=== PATIENT | female | born 1945 | race Caucasian/White ===

== ENCOUNTER 2020-06-17 12:42 | Outpatient (REF) | payer MEDICARE, SELFPAY ==
--- NOTE | 2020-06-17 | MM_ITS ---
EXAMINATION: MM SCREENING DIGITAL BREAST TOMOSYNTHESIS, BILATERAL CLINICAL INFORMATION: Screening. Asymptomatic. The lifetime risk of breast cancer based on the Tyrer-Cuzick Model is 3%. COMPARISON: Mammography: 02/08/2019, 01/15/2018 TECHNIQUE: Digital breast tomosynthesis is performed in both the craniocaudal and mediolateral oblique views along with computer-aided detection (CAD). Synthesized 2D images are generated from the tomosynthesis. FINDINGS: There are scattered areas of fibroglandular density (ACR BI-RADS breast composition Category b). There are no significant masses, abnormal calcifications, or other abnormalities. The axilla and skin contours are unremarkable. IMPRESSION: No mammographic evidence of malignancy. ASSESSMENT: BI-RADS 1: Negative RECOMMENDATION: Routine annual mammography screening. This patient's information was entered into a reminder system with a target due date for their next mammogram.
== END 2020-06-17 12:43 | disposition home or self-care (01) ==
LOC: HO.MAMMO 12:42
PROVIDERS: PCP Internal Medicine; Visit Provider Internal Medicine
DX: Z12.31 Encounter for screening mammogram for malignant neoplasm of breast (principal)
CPT/HCPCS: 77063; 77067

== ENCOUNTER 2020-09-14 14:58 | Outpatient (REF) | payer MEDICARE, SELFPAY | END 2020-09-14 14:59 | disposition home or self-care (01) | LOC: HO.LAB 14:58 | PROVIDERS: PCP Internal Medicine; Visit Provider Internal Medicine | DX: Z20.822 Contact with and (suspected) exposure to COVID-19 (principal) | CPT/HCPCS: 36415; C9803; U0003 ==

== ENCOUNTER 2021-01-05 08:30 | Outpatient (REF) | payer MEDICARE, SELFPAY ==
[2021-01-05 09:10] LABS: MANUAL DIFF FLAG NO
[2021-01-05 09:20] LABS: Basophils Percent Auto 0.5 % (0-2); Eosinophils Absolute Auto 0.3 X10*3/uL (0.0-0.4); Eosinophils Percent Auto 4.2 % (0-4); Hematocrit 43.3 % (37-47); Hemoglobin 13.7 g/dl (12.0-16.0); Imm Gran Abs Auto 0.01 X10*3/uL (0.00-0.03); Imm Gran Pct Auto 0.2 % (0.0-0.4); Lymphocytes Absolute Auto 1.3 X10*3/uL (1.2-4.9); Lymphocytes Percent Auto 20.4 % (20-40); Mean Corpuscular HGB Conc 31.6 g/dl (31.0-35.0); Mean Corpuscular Hemoglobin 29.3 pg (27.0-33.0); Mean Corpuscular Volume 92.5 fL (80-98); Mean Platelet Volume 11.5 fL (9.4-12.3); Monocytes Absolute Auto 0.4 X10*3/uL (0.1-1.2); Monocytes Percent Auto 6.3 % (2-11); Neutrophils Absolute Auto 4.4 X10*3/uL (2.0-8.3); Neutrophils Percent Auto 68.4 % (45-73); Platelet Count 238 X10*3/uL (160-400); Red Blood Count 4.68 X10*6/uL (4.20-5.50); Red Cell Distribution Width 11.7 % (11.0-16.0); White Blood Count 6.4 X10*3/uL (4.8-10.8)
[2021-01-05 09:52] LABS: Alanine Aminotransferase 14 U/L (0-31); Albumin Level 4.4 g/dL (3.5-5.0); Alkaline Phosphatase 82 U/L (39-117); Anion Gap 12 (12-20); Aspartate Amino Transferase 17 U/L (5-31); Bilirubin Total 0.8 mg/dL (0.0-1.0); Blood Urea Nitrogen 8 mg/dL (9-16); Calcium 9.5 mg/dL (8.4-10.2); Carbon Dioxide 27 mmol/L (22-29); Chloride 108 mmol/L (96-108); Cholesterol 210 mg/dL; Estimated Glomerular Filt Rate > 60; Glucose Random 105 mg/dL (60-115); HDL Cholesterol 70 mg/dL; LDL Cholesterol Calculated 124 mg/dl; Sodium 143 mmol/L (135-145); Total Protein 7.1 g/dL (6.5-8.0); Triglycerides 80 mg/dL
[2021-01-05 10:14] LABS: Free T4 (Free Thyroxine) 0.92 ng/dL (0.71-1.85); Thyroid Stimulating Hormone 1.08 uIU/mL (0.32-4.0); Vitamin D 25-OH Total 13.7 ng/mL (>30)
[2021-01-05 11:19] LABS: Folate 16.6 ng/mL (> or = 4.0); Vitamin B12 577 pg/mL (200-900)
== END 2021-01-05 08:31 | disposition home or self-care (01) ==
LOC: HO.LAB 08:30
PROVIDERS: PCP Internal Medicine; Visit Provider Internal Medicine
DX: E78.00 Pure hypercholesterolemia, unspecified (principal); K21.9 Gastro-esophageal reflux disease without esophagitis; M81.0 Age-related osteoporosis without current pathological fracture
CPT/HCPCS: 36415; 80053; 80061; 82306; 82607; 82746; 84439; 84443; 85025

== ENCOUNTER 2021-09-07 12:27 | Outpatient (REF) | payer MEDICARE, SELFPAY ==
--- NOTE | ~2021-09-07 | MM_ITS ---
EXAMINATION: BONE DENSITOMETRY CLINICAL INDICATION: Age-related osteoporosis without current pathological fracture. COMPARISON: Previous BD dated 08/12/2019 and baseline BD dated 06/26/2008. TECHNIQUE: Using a [employer] DXA System (software version: 13.1) manufactured by [employer], dual-energy x-ray absorptiometry was performed of the lumbar spine and left hip. The images are of good technical quality. Summary results are attached. FINDINGS: AP SPINE L2-L3 (excluding L1 and L4): The data of L1-L4 has been changed to exclude the L1 and L4 vertebral bodies, because degenerative changes at these levels may cause overestimation of lumbar spine density. Current: BMD 0.785 g/cm2, Z-score -2.1, T-score -3.5, osteoporosis, 6.9% increase from previous, 21.5% decrease from baseline (<5% change is not significant). Prior: BMD 0.734 g/cm2. Baseline: BMD 1.000 g/cm2. LEFT FEMUR, NECK: Current: BMD 0.691 g/cm2, Z-score -0.9, T-score -2.5, osteoporosis. Prior: BMD 0.762 g/cm2. Baseline: BMD 0.918 g/cm2. LEFT FEMUR, TOTAL: Current: BMD 0.789 g/cm2, Z-score -0.3, T-score -1.7, osteopenia, 4.5% decrease from previous, 19.1% decrease from baseline (<5% change is not significant). Prior: BMD 0.826 g/cm2. Baseline: BMD 0.975 g/cm2. IDENTIFIED RISK FACTORS: Osteoporosis, menopause. HISTORY OF FRACTURE: None listed. MEDICATIONS: Calcium supplements or multivitamin, vitamin D. MM/XR DEXA axial skeleton IMPRESSION: 1. DIAGNOSIS: Osteoporosis based on the lowest T-score value of -3.5 in the lumbar spine applying World Health Organization criteria. 2. 10-YEAR FRACTURE RISK PREDICTION, FRAX: According to the guidelines, FRAX calculation should only be performed on patients in the osteopenia bone density category. 3. Recommendations: NOF guidelines recommend consideration for treatment in postmenopausal women and men age 50 and older presenting with the following: -A hip or vertebral (clinical or morphometric) fracture. -T-score less than or equal to -2.5 at the femoral neck or spine after appropriate evaluation to exclude secondary causes. -Low bone mass at the hip or spine and a 10-year fracture probability by FRAX of greater than or equal to 3% for hip fracture or greater than or equal to 20% for major osteoporotic fracture based on the [place] adapted WHO algorithm. 4. Other Recommendations: All treatment decisions require clinical judgment and consideration of individual patient factors, including patient preferences, comorbidities, previous drug use, risk factors not captured in the FRAX model (e.g. frailty, falls, vitamin D deficiency, increased bone turnover, interval significant decline in bone density) and possible under or overestimation of fracture risk by FRAX. Additional medical evaluation for secondary cause of low bone mineral density may be appropriate. FUTURE SCAN RECOMMENDATION: People with diagnosed cases of osteoporosis or at high risk for fracture should have regular bone mineral density tests. For patients eligible for Medicare, routine testing is allowed once every 2 years. The testing frequency can be increased to one year for patients who have rapidly progressing disease, those who are receiving or discontinuing medical therapy to restore bone mass, or have additional risk factors.
--- NOTE | ~2021-09-07 | MM_ITS ---
EXAMINATION: MM SCREENING DIGITAL BREAST TOMOSYNTHESIS, BILATERAL CLINICAL INFORMATION: Screening. Asymptomatic. The lifetime risk of breast cancer based on the Tyrer-Cuzick Model is 2%. COMPARISON: Mammography: 06/17/2020, 02/18/2019, 01/15/2018 TECHNIQUE: Digital breast tomosynthesis is performed in both the craniocaudal and mediolateral oblique views along with computer-aided detection (CAD). Synthesized 2D images are generated from the tomosynthesis. FINDINGS: There are scattered areas of fibroglandular density (ACR BI-RADS breast composition Category b). There are no significant masses, abnormal calcifications, or other abnormalities. Parenchymal pattern is similar to prior studies. There is no developing density or architectural abnormality. The axilla and skin contours are unremarkable. No significant changes. MM/MM tomosynthesis screening BI IMPRESSION: No mammographic evidence of malignancy. ASSESSMENT: BI-RADS 1: Negative RECOMMENDATION: Routine annual mammography screening. This patient's information was entered into a reminder system with a target due date for their next mammogram.
== END 2021-09-07 12:28 | disposition home or self-care (01) ==
LOC: HO.MAMMO 12:27
PROVIDERS: Visit Provider Internal Medicine
DX: Z12.31 Encounter for screening mammogram for malignant neoplasm of breast (principal); Z13.820 Encounter for screening for osteoporosis; M81.0 Age-related osteoporosis without current pathological fracture; Z78.0 Asymptomatic menopausal state; Z79.899 Other long term (current) drug therapy
CPT/HCPCS: 77063; 77067; 77080

== ENCOUNTER → 2021-09-30 09:33 | Outpatient (BNVA) | payer MEDICARE, SELFPAY | PROVIDERS: PCP Internal Medicine; Visit Provider Hospitalist | DX: J45.40 Moderate persistent asthma, uncomplicated (principal); T78.40XA Allergy, unspecified, initial encounter; X58.XXXA Exposure to other specified factors, initial encounter; Z79.899 Other long term (current) drug therapy | CPT/HCPCS: 99202 ==

== ENCOUNTER 2021-10-06 08:54 | Outpatient (REF) | payer MEDICARE, SELFPAY ==
[2021-10-06 11:20] LABS: MANUAL DIFF FLAG NO
[2021-10-06 11:27] LABS: Basophils Percent Auto 0.4 % (0-2); Eosinophils Absolute Auto 0.3 X10*3/uL (0.0-0.4); Eosinophils Percent Auto 5.1 % (0-4); Hematocrit 41.1 % (37.0-47.0); Imm Gran Abs Auto 0.01 X10*3/uL (0.00-0.03); Imm Gran Pct Auto 0.2 % (0.0-0.4); Lymphocytes Absolute Auto 1.4 X10*3/uL (1.2-4.9); Mean Corpuscular HGB Conc 31.6 g/dl (31.0-35.0); Mean Corpuscular Hemoglobin 29.7 pg (27.0-33.0); Mean Corpuscular Volume 94.1 fL (80.0-98.0); Mean Platelet Volume 12.2 fL (9.4-12.3); Monocytes Absolute Auto 0.4 X10*3/uL (0.1-1.2); Monocytes Percent Auto 8.5 % (2-11); Neutrophils Absolute Auto 2.9 x10*3/uL (2.0-8.3); Neutrophils Percent Auto 57.8 % (45-73); Platelet Count 207 X10*3/uL (160-400); Red Blood Count 4.37 X10*6/uL (4.20-5.50); Red Cell Distribution Width 11.7 % (11.0-16.0); White Blood Count 5.1 X10*3/uL (4.8-10.8)
[2021-10-06 12:04] LABS: Erythrocyte Sedimentation Rate 7 MM/HR (0-20)
== END 2021-10-06 08:55 | disposition home or self-care (01) ==
LOC: HO.HMGCLDS 08:54
PROVIDERS: Hospitalist; Visit Provider Internal Medicine
DX: J45.20 Mild intermittent asthma, uncomplicated (principal); T78.40XA Allergy, unspecified, initial encounter
CPT/HCPCS: 36415; 85025; 85652

== ENCOUNTER 2021-11-28 19:18 | Emergency (ER) | payer OTHER, SELFPAY ==
--- NOTE | ~2021-11-28 | XR_ITS ---
EXAMINATION: XR KNEE, LEFT CLINICAL INFORMATION: Knee pain COMPARISON: 02/25/2010 TECHNIQUE: Four views of the left knee. FINDINGS: Large suprapatellar knee joint effusion is seen. Tricompartmental degenerative changes are noted with osteophyte formation and subchondral sclerosis more so in the patellofemoral compartment. Chondrocalcinosis seen in the medial lateral compartments. I do not appreciate any acute fracture or dislocation. XR/XR knee LT 4V IMPRESSION: Tricompartmental degenerative changes with large suprapatellar knee joint effusion.
[2021-11-28 19:26] VITALS: BP 155/83; PULSE 84; RESP 18; TEMP 37; O2SAT 96
[2021-11-28 21:02] VITALS: BP 170/108; PULSE 107; RESP 17; TEMP 37.2; O2SAT 96; BMI 29.6
--- NOTE | 2021-11-28 22:12 | ED.LOWEXIN ---
HPI - Extremity Injury (Lower) General Chief Complaint: Extremity Injury, Lower <YADI Coy - Last Filed: 11/29/21 00:31> Stated Complaint: left knee pain <YADI Coy Last Filed: 11/29/21 00:31> Time Seen by Provider: 11/28/21 20:21 <YADI Coy Last Filed: 11/29/21 00:31> Source: patient <YADI Coy Last Filed: 11/29/21 00:31> Mode of arrival: ambulatory <AYDI Coy Last Filed: 11/29/21 00:31> Limitations: no limitations <YADI Coy Last Filed: 11/29/21 00:31> History of Present Illness HPI Narrative: 76 yo female with history of osteoarthritis, osteoporosis, asthma, anxiety, HLD, GERD who presents to the ER with worsening left knee pain for the last 6 weeks. Daughter reports she started limping a bit 6 weeks ago and it has only worsening since. Yesterday patient went shopping with a family member, did a lot of walking with singifiannt worsening of the pain and swelling. When she went to stand up earlier she heard a pop with even more pain and swelling. She is now unable to put pressure on the left leg and walk. She denies any fall or trauma. She is not on anticoagulation. She has a history of knee effusion in the right that has require drainage in the past. <YADI Coy - Last Filed: 11/29/21 00:31> MD complaint: knee injury <YADI Coy Last Filed: 11/29/21 00:31> Onset (ago): week(s) <YADI Coy Last Filed: 11/29/21 00:31> Injury: Left: knee <YADI Coy Last Filed: 11/29/21 00:31> Place: home and street/outdoors <YADI Coy Last Filed: 11/29/21 00:31> Severity: severe <YADI Coy Last Filed: 11/29/21 00:31> Severity scale (1-10): 10 <YADI Coy Last Filed: 11/29/21 00:31> Relieving factors: immobilization and rest <YADI Coy - Last Filed: 11/29/21 00:31> Exacerbating factors: weight bearing, movement and palpation <YADI Coy - Last Filed: 11/29/21 00:31> Context: walking <YADI Coy - Last Filed: 11/29/21 00:31> Associated symptoms: snap/pop sensation, swelling and unable to bear weight <YADI Coy - Last Filed: 11/29/21 00:31> Other symptoms: none <YADI Coy - Last Filed: 11/29/21 00:31> Related Data Home Medications: Home Medications Medication Instructions Recorded Confirmed cyanocobalamin (vitamin B-12) 1,000 mcg PO DAILY 10/07/20 10/10/21 1,000 mcg tablet fluticasone propionate 50 2 spray INTRANASAL DAILY 10/07/20 10/10/21 mcg/actuation nasal spray,suspension ibuprofen 800 mg tablet 800 mg PO Q8H 10/07/20 10/10/21 Previous Rx's Medication Instructions Recorded omeprazole 20 mg capsule,delayed 20 mg PO DAILY #30 cap 08/23/20 release diclofenac sodium 1 % topical gel 2 g TOPICAL QID #100 g 01/05/21 cholecalciferol (vitamin D3) 25 25 mcg PO DAILY 90 Days #90 cap 01/11/21 mcg (1,000 unit) capsule risedronate 35 mg tablet (Actonel) 35 mg PO QWEEK #12 tab 03/21/21 Baclidoxe/RUPERTO 2%, 5% 6% Cream See Rx Instructions .ROUTE 07/18/21 .COMPLEX #240 g simvastatin 40 mg tablet 40 mg PO QPM #90 tab 08/07/21 skinny light Pads size 3 #120 ea 09/06/21 wipes. #1 ea 09/06/21 albuterol sulfate 2.5 mg (3 mL) INHALATION Q4-6H PRN 09/30/21 #180 ml albuterol sulfate 90 mcg/actuation 2 inh INHALATION Q6H PRN 30 Days 09/30/21 aerosol inhaler #18 g cetirizine 10 mg tablet (Zyrtec) 10 mg PO DAILY 30 Days #30 tab 09/30/21 fluticasone 250 mcg-salmeterol 50 1 ea INHALATION BID #60 cap 09/30/21 mcg/dose blistr powdr for inhalation (David Cooper) montelukast 10 mg tablet 10 mg PO DAILY 90 Days #90 tab 09/30/21 <YADI Coy - Last Filed: 11/29/21 00:31> Allergies/Adverse Reactions: Allergies Allergy/AdvReac Type Severity Reaction Status Date / Time alendronate sodium Allergy Unknown Upset Verified 10/10/21 09:41 stomach SEASONAL ALLERGIES Allergy Unknown SNEEZING Uncoded 10/10/21 09:41 <YADI Coy - Last Filed: 11/29/21 00:31> Review of Systems Review of Systems: Constitutional: No Fever, No Chills ENT/Mouth: No sore throat, No Rhinorrhea, No Swallowing Difficulty Cardiovascular: No Chest Pain, No SOB, No Orthopnea, No Edema Respiratory: No Cough, No Sputum, No Wheezing, No dyspnea Gastrointestinal: No Nausea, No Vomiting, No Diarrhea, No abdominal Pain Genitourinary: No Dysuria, No Urinary Frequency, No Hematuria Musculoskeletal: + joint pain, No Myalgias Skin: No Skin Lesions, No rash Neuro: No Weakness, No Numbness, No Dizziness, No Headache Psych: No Anxiety/Panic, No Depression Heme/Lymph: No Bruising, No Lymphadenopathy Endocrine: No Polyuria, No Polydipsia <YADI Coy - Last Filed: 11/29/21 00:31> [facility]LY [facility] Past Medical History Medical History: Medical History (Updated 11/28/21 @ 23:11 by YADI Coy) Allergic rhinitis Allergy Anxiety Asthma GERD (gastroesophageal reflux disease) Hypercholesterolemia Insomnia Osteoporosis Vitamin D deficiency <YADI Coy - Last Filed: 11/29/21 00:31> Surgical History: Surgical History History of shoulder surgery History of tubal ligation <YADI Coy - Last Filed: 11/29/21 00:31> Family History Family History: Family History Father Cancer Mother Diabetes Myocardial infarction Sister No problems noted. Daughter No problems noted. Son No problems noted. Son No problems noted. Son No problems noted. <YADI Coy - Last Filed: 11/29/21 00:31> Social History Social History: Social History (Updated 10/10/21 @ 10:23 by Manuel Oviedo MD) Housing: House Alcohol intake: current Patient Tobacco Use Status: Never used Tobacco Tobacco use type: Cigarette e-Cigarette/Vaping Use: Never Used Second Hand Smoke Exposure: No Advance Directives: Yes Advance Directives on File: Yes Advance Directives Date on File: 10/11/21 Current occupational status: retired <YADI Coy - Last Filed: 11/29/21 00:31> Physical Exam Vital Signs: Vital Signs: Last Vital Signs Temp 98.2 F 11/29/21 05:13 Pulse 88 11/29/21 05:13 Resp 14 11/29/21 05:13 BP 154/87 H 11/29/21 05:13 Pulse Ox 98 11/29/21 05:13 BMI result Body Mass Index 29.6 <YADI Coy - Last Filed: 11/29/21 00:31> Appearance: Alert. Oriented X3. No acute distress. HEENT: normal inspection CVS: Normal heart rate and rhythm. Pulses normal. Respiratory: No respiratory distress. Skin: Skin warm and dry. Normal skin color. Normal skin turgor. No rashes. Extremities: left knee with large amount of swelling superiorly. limited ROM due to swelling and pain. warm but not red. tenderness throughout the entire knee joint. palpable effusion superiorly. Neuro: Oriented X 3. gait not tested due to pain <YADI Coy - Last Filed: 11/29/21 00:31> Course Course Course Narrative: 76 y/o female with history of osteoarthritis, hx right knee effusion requiring drainage in the past presents to the ER with 6 weeks of worsening atraumtic left knee pain, acutely worse in last 48 hours after shopping and then hearing a pop with severe pain when standing. Significant swelling on exam but no evidence of infection. Doubt gout. XR is showing tricompartmental degenerative changes with large suprapatellar knee effusion. Discussed options of management with patient and daughter at the bedside. They have an Orthopedist in [place] but do not know the name. Given her severe pain they would like the effusion drained in the ER now. Risks and benefits discussed, verbal consent obtained. <YADI Coy - Last Filed: 11/29/21 00:31> Reevaluation(s) Reevaluation #1: Left knee was drained of 100cc of dark red bloody fluid. Knee effusion much softer and smaller but not resolved completely. Immediately following the procedure compression SAMUEL wraps, elevated and ice applied. PO meds ordered for pain. Pt and daughter to discuss PT eval and placement vs d/c home with family support. <YADI Coy - Last Filed: 11/29/21 00:31> Reevaluation #2: Given patient's pain and continued limited ROM, inability to ambulate, will plan to get PT consult tomorrow and case management consult for placement to short term rehab. Will check basic labs including coags given her hemarthrosis. Synovial fluid sent for cell count and culture. Physician observation started at 12:20am. Patient placed in physician observation because patient is awaiting PT evaluation for the possible need of placement to short term rehab. At the time observation was started patient's vital signs were stable. Patient is alert and oriented. Neuro exam is non-focal. CV: RRR and lungs are clear. ATC tylenol ordered as well as oxycodone Q6h Will continue to monitor. <YADI Coy - Last Filed: 11/29/21 00:31> MDM - Extremity Injury (Lower) Lab Data Result diagrams: : 11/29/21 01:48 11/29/21 01:48 <YADI Coy - Last Filed: 11/29/21 00:31> Labs: Lab Results 11/28/21 11/29/21 11/29/21 Range/Units 23:50 01:48 01:48 WBC 11.5 H (4.8-10.8) X10*3/uL RBC 4.37 (4.20-5.50) X10*6/uL Hgb 12.9 (12.0-16.0) g/dl Hct 38.9 (37.0-47.0) % MCV 89.0 (80.0-98.0) fL MCH 29.5 (27.0-33.0) pg MCHC 33.2 (31.0-35.0) g/dl RDW 11.4 (11.0-16.0) % Plt Count 207 (160-400) X10*3/uL MPV 11.5 (9.4-12.3) fL Immature Gran % (Auto) 0.2 (0.0-0.4) % Neut % (Auto) 86.6 H (45-73) % Lymph % (Auto) 5.3 L (20-40) % [place] % (Auto) 7.8 (2-11) % Eos % (Auto) 0.0 (0-4) % Baso % (Auto) 0.1 (0-2) % Lymph # (Auto) 0.6 L (1.2-4.9) X10*3/uL [place] # (Auto) 0.9 (0.1-1.2) X10*3/uL Eos # (Auto) 0.0 (0.0-0.4) X10*3/uL Baso # (Auto) 0.0 (0.0-0.2) X10*3/uL Abs Immat Gran (auto) 0.02 (0.00-0.03) X10*3/uL Absolute Neuts (auto) 9.9 H (2.0-8.3) x10*3/uL Absolute Nucleated RBC 0.000 (0.0-0.012) X10*3/uL Nucleated RBC % (auto) 0.0 (0.0-0.2) /100WBC PT 12.0 (9.9-13.0) SEC INR 1.1 (0.9-1.1) APTT 40.2 H (24.1-38.0) SEC Sodium (135-145) mmol/L Potassium (3.3-5.1) mmol/L Chloride (96-108) mmol/L Carbon Dioxide (22-29) mmol/L Anion Gap (12-20) BUN (9-16) mg/dL Creatinine (0.5-1.4) mg/dL Estim Creat Clear Calc Estimated GFR Random Glucose (60-115) mg/dL Calcium (8.4-10.2) mg/dL Synovial Source left knee Synovial WBC 23.445 X10*3/uL Synovial RBC 0.324 X10*6/uL Synovial Neutrophils 96 % Synovial Lymphocytes 1 % Synovial Monocytes 1 % Synovial Eosinophils 2 % 11/29/21 Range/Units 01:48 WBC (4.8-10.8) X10*3/uL RBC (4.20-5.50) X10*6/uL Hgb (12.0-16.0) g/dl Hct (37.0-47.0) % MCV (80.0-98.0) fL MCH (27.0-33.0) pg MCHC (31.0-35.0) g/dl RDW (11.0-16.0) % Plt Count (160-400) X10*3/uL MPV (9.4-12.3) fL Immature Gran % (Auto) (0.0-0.4) % Neut % (Auto) (45-73) % Lymph % (Auto) (20-40) % [place] % (Auto) (2-11) % Eos % (Auto) (0-4) % Baso % (Auto) (0-2) % Lymph # (Auto) (1.2-4.9) X10*3/uL [place] # (Auto) (0.1-1.2) X10*3/uL Eos # (Auto) (0.0-0.4) X10*3/uL Baso # (Auto) (0.0-0.2) X10*3/uL Abs Immat Gran (auto) (0.00-0.03) X10*3/uL Absolute Neuts (auto) (2.0-8.3) x10*3/uL Absolute Nucleated RBC (0.0-0.012) X10*3/uL Nucleated RBC % (auto) (0.0-0.2) /100WBC PT (9.9-13.0) SEC INR (0.9-1.1) APTT (24.1-38.0) SEC Sodium 132 L (135-145) mmol/L Potassium 3.6 (3.3-5.1) mmol/L Chloride 99 (96-108) mmol/L Carbon Dioxide 25 (22-29) mmol/L Anion Gap 12 (12-20) BUN 8 L (9-16) mg/dL Creatinine 0.62 (0.5-1.4) mg/dL Estim Creat Clear Calc 74.7 Estimated GFR > 60 Random Glucose 178 H (60-115) mg/dL Calcium 9.1 (8.4-10.2) mg/dL Synovial Source Synovial WBC X10*3/uL Synovial RBC X10*6/uL Synovial Neutrophils % Synovial Lymphocytes % Synovial Monocytes % Synovial Eosinophils % <YADI Coy - Last Filed: 11/29/21 00:31> Procedures Joint Aspiration/Injection Joint Asp./Inject. 1: Time Out Performed: Yes <YADI Coy - Last Filed: 11/29/21 00:31> Side of body: left <YADI Coy - Last Filed: 11/29/21 00:31> Joint Aspirated: knee <YADI Coy - Last Filed: 11/29/21 00:31> Ultrasound Guidance: No <YADI Coy - Last Filed: 11/29/21 00:31> Skin Prep: Povidone-Iodine1% <YADI Coy - Last Filed: 11/29/21 00:31> Local Anesthetic: lidocaine 1% <YADI Coy - Last Filed: 11/29/21 00:31> Amount of anesthesia used (mL): 15 <YADI Coy - Last Filed: 11/29/21 00:31> Needle Size Used: 18G <YADI Coy - Last Filed: 11/29/21 00:31> Fluid Obtained: bloody <YADI Coy - Last Filed: 11/29/21 00:31> Total fluid obtained (mL): 100 <YADI Coy - Last Filed: 11/29/21 00:31> Patient Tolerated Procedure: well <YADI Coy - Last Filed: 11/29/21 00:31> Complications: pain <YADI Coy Last Filed: 11/29/21 00:31> Discharge Plan Discharge Clinical Impression: Hemarthrosis <YADI Coy - Last Filed: 11/29/21 00:31> Patient Disposition: Still a Patient <YADI Coy - Last Filed: 11/29/21 00:31> Instructions: Hemarthrosis (ED) <YADI Coy - Last Filed: 11/29/21 00:31> Prescriptions: No [facility] omeprazole 20 mg capsule,delayed release(DR/EC) 20 mg PO DAILY Qty: 30 11RF cholecalciferol (vitamin D3) 25 mcg (1,000 unit) capsule 25 mcg PO DAILY 90 Days Qty: 90 3RF risedronate [Actonel] 35 mg tablet 35 mg PO QWEEK Qty: 12 3RF Rx Instructions: administer at least 30 minutes before the first food or drink of the day other than water. simvastatin 40 mg tablet 40 mg PO QPM Qty: 90 3RF (DME) skinny light Pads size 3 See Rx Instructions .Route .MEDSUPPLY Qty: 120 3RF Rx Instructions: As directed (DME) wipes. See Rx Instructions .Route .MEDSUPPLY Qty: 1 3RF Rx Instructions: As directed ibuprofen 800 mg tablet 800 mg PO Q8H 0RF fluticasone propionate 50 mcg/actuation spray,suspension 2 spray intranasal DAILY 0RF Rx Instructions: administer into each nostril cyanocobalamin (vitamin B-12) 1,000 mcg tablet 1,000 mcg PO DAILY 0RF diclofenac sodium 1 % gel 2 g topical QID Qty: 100 11RF Rx Instructions: apply to single elbow, wrist or hand; for hand includes palm/fingers/back of hand Baclidoxe/RUPERTO 2%, 5% 6% Cream See Rx Instructions .ROUTE .COMPLEX Qty: 240 5RF Rx Instructions: apply to area of pain 2 x a day; cetirizine [Zyrtec] 10 mg tablet 10 mg PO DAILY 30 Days Qty: 30 11RF albuterol sulfate 2.5 mg /3 mL (0.083 %) solution for nebulization 2.5 mg inhalation Q4-6H PRN (Reason: shortness of breath or wheezing) Qty: 180 11RF fluticasone propion-salmeterol [Wixela Inhub] 250-50 mcg/dose blister with device 1 ea inhalation BID Qty: 60 12RF montelukast 10 mg tablet 10 mg PO DAILY 90 Days Qty: 90 3RF albuterol sulfate 90 mcg/actuation HFA aerosol inhaler 2 inh inhalation Q6H PRN (Reason: shortness of breath or wheezing) 30 Days Qty: 18 12RF <YADI Coy - Last Filed: 11/29/21 00:31> Referrals: Diego Flores MD [Physician] - 2 days (left knee hemarthrosis) <YADI Coy - Last Filed: 11/29/21 00:31>
[2021-11-28 22:31] VITALS: BP 198/96; PULSE 120; RESP 22; TEMP 36.7; O2SAT 97
[2021-11-28] MEDS: Lidocaine HCl 1 % 20 ML VIAL INFILTRATI (22:39)
[2021-11-28] MEDS: traMADoL HCL 50 MG TABLET PO (23:02)
[2021-11-28] MEDS: oxyCODONE HCl Immed Release 5 MG TABLET PO (23:56)
[2021-11-28 23:58] LABS: Source Synovial Fluid left knee
[2021-11-29 00:13] LABS: MN% 8.7 %; PMN% 91.3 %; RBC Synovial Fluid 0.324 X10*6/uL
[2021-11-29 00:53] LABS: Eosinophils Synovial Fluid 2 %; Lymphocytes Synovial Fluid 1 %; Monocytes Synovial Fluid 1 %
[2021-11-29 00:54] LABS: BF Shift QC OK YES; Man Diluent Bkgrd OK YES; Neutrophils Synovial Fluid 96 %
--- NOTE | 2021-11-29 01:07 | PC.NURSE ---
REPORT AND CARE TRANSFERRED TO TEZ DOBSON.
[2021-11-29] MEDS: Acetaminophen 325 MG TABLET 975 MG PO ×3 (01:22→12:39)
[2021-11-29 01:30] VITALS: BP 176/104; PULSE 105; RESP 16; TEMP 36.4; O2SAT 95
[2021-11-29 01:54] LABS: MANUAL DIFF FLAG NO
[2021-11-29 01:55] LABS: Basophils Percent Auto 0.1 % (0-2); Hematocrit 38.9 % (37.0-47.0); Hemoglobin 12.9 g/dl (12.0-16.0); Imm Gran Abs Auto 0.02 X10*3/uL (0.00-0.03); Imm Gran Pct Auto 0.2 % (0.0-0.4); Lymphocytes Absolute Auto 0.6 X10*3/uL (1.2-4.9); Lymphocytes Percent Auto 5.3 % (20-40); Mean Corpuscular HGB Conc 33.2 g/dl (31.0-35.0); Mean Corpuscular Hemoglobin 29.5 pg (27.0-33.0); Mean Platelet Volume 11.5 fL (9.4-12.3); Monocytes Absolute Auto 0.9 X10*3/uL (0.1-1.2); Monocytes Percent Auto 7.8 % (2-11); Neutrophils Absolute Auto 9.9 x10*3/uL (2.0-8.3); Neutrophils Percent Auto 86.6 % (45-73); Platelet Count 207 X10*3/uL (160-400); Red Blood Count 4.37 X10*6/uL (4.20-5.50); Red Cell Distribution Width 11.4 % (11.0-16.0); White Blood Count 11.5 X10*3/uL (4.8-10.8)
[2021-11-29 02:06] LABS: INTERNATIONAL NORM RATIO 1.1 (0.9-1.1)
[2021-11-29 02:09] LABS: Partial Thromboplastin Time 40.2 SEC (24.1-38.0)
[2021-11-29 02:17] LABS: Anion Gap 12 (12-20); Blood Urea Nitrogen 8 mg/dL (9-16); Calcium 9.1 mg/dL (8.4-10.2); Carbon Dioxide 25 mmol/L (22-29); Chloride 99 mmol/L (96-108); Creatinine Clr Calc Pharmacy 74.7; Estimated Glomerular Filt Rate > 60; Glucose Random 178 mg/dL (60-115); Potassium 3.6 mmol/L (3.3-5.1); Sodium 132 mmol/L (135-145)
[2021-11-29 05:13] VITALS: BP 154/87; PULSE 88; RESP 14; TEMP 36.8; O2SAT 98
[2021-11-29 07:13] VITALS: BP 155/98; PULSE 96; RESP 20; TEMP 37.4; O2SAT 100
[2021-11-29 07:38] LABS: Uric Acid Synovial Fluid 3
[2021-11-29 07:50] VITALS: BP 161/108; PULSE 93; RESP 14; O2SAT 96
--- NOTE | 2021-11-29 09:01 | PHA.MEDREC ---
Pharmacy Consult ? Medication Reconciliation Pharmacy has completed the medication reconciliation. No remarkable issues, Amanda Cazares, DamasoD
[2021-11-29 09:58] LABS: Influenza A PCR NEGATIVE (Negative); Influenza B PCR NEGATIVE (Negative); Resp Syncy Virus RNA Qual PCR NEGATIVE (Negative); SARS COV2 PCR INHOUSE NEGATIVE (Negative)
[2021-11-29 10:00] VITALS: BP 125/84; PULSE 97; RESP 16; O2SAT 97
[2021-11-29] MEDS: Cyanocobalamin (Vitamin B-12) 1,000 MCG TABLET 1000 MCG PO (10:11)
[2021-11-29] MEDS: Cholecalciferol (Vitamin D3) 25 MCG TABLET PO (10:11)
[2021-11-29] MEDS: Omeprazole 20 MG CAPSULE.DR PO (10:11)
[2021-11-29] MEDS: Montelukast Sodium 10 MG TABLET PO (10:11)
[2021-11-29] MEDS: oxyCODONE HCl Immed Release 5 MG TABLET PO (10:11)
[2021-11-29] MEDS: Loratadine 10 MG TABLET PO (10:11)
--- NOTE | 2021-11-29 10:31 | MHC.CM.ED ---
Received case management consult overnight. Patient came to ER due to left knee pain. Work up essentially negative. Physical therapy eval completed. Short term rehab is recommended. Met with patient and daughter, Layne in regards to discharge planning. Patient lives with her , ambulates independently and had no services prior to coming to the hospital. PCP verified. Layne has a copy of patient's HCP at home and will obtain a copy. Patient received 3 Moderna vaccines. List of facilities contracted with patient's insurance provided. Patient and Layne will make 2 choices and get back to CM. Continue to monitor for d/c needs.
[2021-11-29 12:34] VITALS: BP 133/81; PULSE 93; RESP 16; TEMP 36.9; O2SAT 96
--- NOTE | 2021-11-29 15:17 | MHC.CM.ED ---
Darian Bonilla has obtained insurance auth. Patient can leave at 430pm. [facility] booked. Med nec with chart. Patient, daughter, Annamaria Tillman RN and Dr Hanson aware. Continue to monitor for d/c needs.
--- NOTE | 2021-11-29 16:55 | PC.NURSE ---
call to surendra newby to give nurse to nurse, no answer from floor patient is being admitted to.
--- NOTE | 2021-11-29 18:56 | MHC.CM.ED ---
CM received a call from daughter stating that the family decided to take patient home and they took patient home from [facility] when ambulance arrived. States family will care for her. Pt has [facility] insurance. Daughter will call career services assistant at [facility] to request PT home services. CM explained that referral could be placed with [facility], but daughter states she will call [facility] in the am. Daughter aware that PT recommended [facility], but she states the family was upset with the decision to place at [facility], so they will explore home PT options.
== END 2021-11-29 16:56 | disposition skilled nursing facility (03) ==
PROVIDERS: Emergency Medicine; Physician Assistant; Emergency Provider Emergency Medicine; PCP Internal Medicine
DX: M25.062 Hemarthrosis, left knee (principal); M25.461 Effusion, right knee; M25.562 Pain in left knee; Z20.822 Contact with and (suspected) exposure to COVID-19
CPT/HCPCS: 0241U; 20610; 36415; 73564; 80048; 84560; 85025; 85610; 85730; 89051; 97162; 99284; 99285

== ENCOUNTER 2021-12-23 09:41 | Outpatient (REF) | payer OTHER, SELFPAY ==
--- NOTE | 2021-12-23 13:16 | PFT_ITS ---
Forced vital capacity 72%, FEV1 62%, FEV1/FVC ratio 66, FEF 25/25 42% and MVV is 42%. Post bronchodilator therapy, there is no change. Total lung capacity 85% and residual volume 101%. Diffusion capacity 67. CONCLUSION: Moderately severe obstructive airway disorder. No response to bronchodilator therapy. Clinical correlation recommended. MD AMELIA Farr/BALJINDER / [id number]
== END 2021-12-23 09:42 | disposition home or self-care (01) ==
LOC: HO.RESP 09:41
PROVIDERS: PCP Internal Medicine; Visit Provider Hospitalist
DX: J44.9 Chronic obstructive pulmonary disease, unspecified (principal)
CPT/HCPCS: 94060; 94727; 94729

== ENCOUNTER → 2022-01-26 10:04 | Outpatient (BNVA) | payer OTHER, SELFPAY | PROVIDERS: PCP Internal Medicine; Visit Provider Hospitalist | DX: J45.40 Moderate persistent asthma, uncomplicated (principal); T78.40XD Allergy, unspecified, subsequent encounter | CPT/HCPCS: 99212 ==

== ENCOUNTER 2022-07-07 08:39 | Outpatient (REF) | payer OTHER, SELFPAY ==
[2022-07-07 11:29] LABS: MANUAL DIFF FLAG NO
[2022-07-07 11:44] LABS: Basophils Percent Auto 0.3 % (0-2); Eosinophils Absolute Auto 0.1 X10*3/uL (0.0-0.4); Eosinophils Percent Auto 1.5 % (0-4); Hematocrit 43.2 % (37.0-47.0); Hemoglobin 13.4 g/dl (12.0-16.0); Imm Gran Abs Auto 0.04 X10*3/uL (0.00-0.03); Imm Gran Pct Auto 0.5 % (0.0-0.4); Lymphocytes Absolute Auto 1.9 X10*3/uL (1.2-4.9); Lymphocytes Percent Auto 25.6 % (20-40); Mean Corpuscular Hemoglobin 28.9 pg (27.0-33.0); Mean Corpuscular Volume 93.1 fL (80.0-98.0); Mean Platelet Volume 11.9 fL (9.4-12.3); Monocytes Absolute Auto 0.6 X10*3/uL (0.1-1.2); Monocytes Percent Auto 8.1 % (2-11); Neutrophils Absolute Auto 4.8 x10*3/uL (2.0-8.3); Platelet Count 256 X10*3/uL (160-400); Red Blood Count 4.64 X10*6/uL (4.20-5.50); Red Cell Distribution Width 11.9 % (11.0-16.0); White Blood Count 7.5 X10*3/uL (4.8-10.8)
[2022-07-07 11:56] LABS: Estimated Average Glucose 108 mg/dL; Hemoglobin A1c % 5.4 %
[2022-07-07 12:29] LABS: Free T4 (Free Thyroxine) 1.05 ng/dL (0.71-1.85); Thyroid Stimulating Hormone 1.68 uIU/mL (0.32-4.0); Vitamin D 25-OH Total 14.8 ng/mL (>30)
[2022-07-07 12:43] LABS: Alanine Aminotransferase 16 U/L (0-31); Albumin Level 4.1 g/dL (3.5-5.0); Alkaline Phosphatase 75 U/L (39-117); Anion Gap 15 (12-20); Aspartate Amino Transferase 14 U/L (5-31); Bilirubin Total 0.7 mg/dL (0.0-1.0); Blood Urea Nitrogen 15 mg/dL (9-16); Calcium 9.5 mg/dL (8.4-10.2); Carbon Dioxide 25 mmol/L (22-29); Chloride 106 mmol/L (96-108); Cholesterol 228 mg/dL; Estimated Glomerular Filt Rate > 60; Glucose Random 97 mg/dL (60-115); HDL Cholesterol 77 mg/dL; LDL Cholesterol Calculated 137 mg/dl; Potassium 4.4 mmol/L (3.3-5.1); Sodium 142 mmol/L (135-145); Total Protein 6.6 g/dL (6.5-8.0); Triglycerides 72 mg/dL
[2022-07-07 12:44] LABS: Folate 14.2 ng/mL (> or = 4.0); Vitamin B12 326 pg/mL (200-900)
== END 2022-07-07 08:40 | disposition home or self-care (01) ==
LOC: HO.HMGCLDS 08:39
PROVIDERS: PCP Internal Medicine; Visit Provider Internal Medicine
DX: K21.9 Gastro-esophageal reflux disease without esophagitis (principal); E78.00 Pure hypercholesterolemia, unspecified
CPT/HCPCS: 36415; 80053; 80061; 82306; 82607; 82746; 83036; 84439; 84443; 85025

== ENCOUNTER 2022-09-11 09:52 | Outpatient (REF) | payer OTHER, SELFPAY ==
--- NOTE | ~2022-09-11 | MM_ITS ---
EXAMINATION: MM SCREENING DIGITAL BREAST TOMOSYNTHESIS, BILATERAL CLINICAL INFORMATION: Screening. Asymptomatic. The lifetime risk of breast cancer based on the Tyrer-Cuzick Model is 2.4%. COMPARISON: Mammography: September 07, 2021 and studies dating back to December 01, 2015 TECHNIQUE: Digital breast tomosynthesis is performed in both the craniocaudal and mediolateral oblique views along with computer-aided detection (CAD). Synthesized 2D images are generated from the tomosynthesis. FINDINGS: There are scattered areas of fibroglandular density (ACR BI-RADS breast composition Category b). There are no significant masses, abnormal calcifications, or other abnormalities. MM/MM tomosynthesis screening BI IMPRESSION: No significant changes from prior exam. ASSESSMENT: BI-RADS 1: Negative RECOMMENDATION: Routine annual mammography screening. This patient's information was entered into a reminder system with a target due date for their next mammogram.
== END 2022-09-11 09:53 | disposition home or self-care (01) ==
LOC: HO.MAMMO 09:52
PROVIDERS: PCP Internal Medicine; Visit Provider Internal Medicine
DX: Z12.31 Encounter for screening mammogram for malignant neoplasm of breast (principal)
CPT/HCPCS: 77063; 77067

== ENCOUNTER 2022-09-12 09:48 | Outpatient (REF) | payer OTHER, SELFPAY ==
--- NOTE | ~2022-09-12 | XR_ITS ---
EXAMINATION: XR CHEST CLINICAL INFORMATION: Moderate asthma COMPARISON: X-ray 05/08/2013 TECHNIQUE: 2 views of the chest were obtained. FINDINGS: Mild cardiomegaly. Tortuous aorta. Lungs are clear. No pleural effusion, pulmonary edema. No pneumothorax. Multilevel dorsal spine degeneration. XR/XR chest 2V IMPRESSION: No acute pulmonary disease. Stable mild cardiomegaly and tortuous aorta.
== END 2022-09-12 09:49 | disposition home or self-care (01) ==
LOC: HO.XRAY 09:48
PROVIDERS: PCP Internal Medicine; Visit Provider Hospitalist
DX: Z23 Encounter for immunization (principal); J45.40 Moderate persistent asthma, uncomplicated; T78.40XA Allergy, unspecified, initial encounter
CPT/HCPCS: 71046; 90471; 90677; 99212

== ENCOUNTER 2023-05-15 09:55 | Outpatient (AMB) | payer MEDICARE, SELFPAY ==
--- NOTE | 2023-05-15 10:05 | MHC.OFFVIS ---
Intake Vital Signs 05/15/23 10:06 Height 5 ft 2 in Weight 173 lb 15.115 oz BMI 31.8 Pulse 78 Pulse Source Pulse Oximeter Pulse Oximetry (%) 96 Oxygen Delivery Method Room Air Intake Visit Reasons: Asthma Sweatband Shaper Required: No Allergies alendronate sodium Allergy (Unknown, Verified 05/15/23 10:08) Upset stomach SEASONAL ALLERGIES Allergy (Unknown, Uncoded 05/15/23 10:08) SNEEZING HPI HPI Comments History of Present Illness Details The patient is a 77-year-old woman with a known history of asthma previously followed at [facility] by pulmonology. Subsequently her purchasing buyer left. Currently she has been having some increasing dyspnea symptoms. She also has chest tightness. She does use her rescue inhaler usually on a daily basis. She does get relief when she uses it. We did review her previous data including a CBC with an elevated eosinophil count suggesting eosinophilic asthma. In addition to that the patient did have a CT scan done back in 2017 at [facility]. It demonstrated some peribronchial thickening suggesting some degree of bronchitis and atelectasis. Apparently she did have a more recent CT scan of the chest done. Will request a copy of that study as well. The patient does complaint of nasal congestion and postnasal drip In addition to her ongoing respiratory symptoms. The patient has not had any recent pulmonary function studies and will go ahead and order blood work including allergy testing as far as her respiratory therapy she will continue on current regimen. 01/26/2022 the patient is here for a pulmonary follow-up visit. The patient has been doing well. She continues with current respiratory therapy. She has not had to use her rescue inhaler that often. She is using her allergy medicine. 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 Seems to be responding well to the Wixela. In meantime she is having issues with her knees. Having significant knee swelling. She did go to the ER because of significant joint effusion. The effusion was drained which was found to have significant arthritis. She is going to start gel shots soon with hopes that it would be beneficial in that knee surgery. I did talk to her about her pulmonary function studies. Although she does have a moderate obstruction her symptoms are stable and she is able to proceed with general anesthesia at this time. Hopefully the gel shots work and she can postpone surgery for now. 09/12/2022 the patient is here for a pulmonary follow-up visit. The patient overall is doing well from a respiratory status. the patient does have intermittent cough. Typically nonproductive in nature. [id number]-th-[id number] severity. Also has episodes of chest tightness and wheezing. Typically less than once a week. She continues use he works selling with good effect. She also has been using her allergy medicine. She has not had any exacerbations. She has not required any prednisone which is reassuring. The patient continues to walk with arthritis. I did review her last pulmonary function studies again demonstrating moderate COPD. In addition to that the patient has not had a chest x-ray recently. Go ahead and have her get an x-ray today. Otherwise patient will continue with current regimen will follow-up in 8 months to a year. 05/15/2023 the patient is here for a pulmonary follow-up visit. The patient overall is doing well. She recently was exposed to the cold ranging she states that she got congested after that. She is feeling a little better now. She continues use the Wixela. She has not required any prednisone which is reassuring. We did review her last chest x-ray demonstrating some degree of increased cardiac size. The patient has not had any cardiac imaging. She is doing well she denies any significant shortness of breath leg swelling. Otherwise she will benefit from an echocardiogram. She also has a torturous aorta on her x-ray. On examination the patient does have some diminished breath sounds with prolonged expiratory phase. I do believe that she will benefit from the addition of a long-acting muscarinic antagonist. Therefore will switch over to Trelegy inhaler. If the patient worsens she can always call it in order to send her additional medicines to the pharmacy. Will follow-up in 6 months. If the patient develops any worsening symptoms prior to this visit she is to call the office. Consider cardiac evaluation specially with increased cardiac size. [facility] Medical History Allergic rhinitis Allergy Anxiety Asthma GERD (gastroesophageal reflux disease) Hypercholesterolemia Insomnia Osteoporosis Vitamin D deficiency Surgical History History of shoulder surgery History of tubal ligation Family History (Updated 02/14/23 @ 14:17 by SHILO Escobedo) Father Cancer Mother Diabetes Myocardial infarction Sister No problems noted. Daughter No problems noted. Son No problems noted. Son No problems noted. Son No problems noted. Social History Housing: House Alcohol intake: current Patient Tobacco Use Status: Never used Tobacco e-Cigarette/Vaping Use: Never Used Second Hand Smoke Exposure: No Advance Directives Date on File: 10/11/21 service: No Current occupational status: retired Cognitive needs: No Hearing needs: No Vision needs: Yes Review of Systems Const Denies poor appetite and Denies weakness Eyes Denies no additional complaints ENT Reports Normal hearing present, Denies dizziness, Denies nasal congestion, Denies tinnitus and Denies sore throat Card Denies chest pain, Denies syncope, Denies rapid heart rate, Denies dyspnea and Denies dyspnea on exertion Resp Reports cough, Denies dyspnea, Denies dyspnea on exertion and Denies wheezing GI Denies change in stool character, Reports constipation, Denies diarrhea, Denies nausea and Denies vomiting Denies urinary frequency, Denies difficulty voiding and Denies dysuria Musc Reports arthralgias, Reports joint swelling and Reports limited range of motion Neuro Reports Normal hearing present, Denies dizziness, Denies syncope and Denies weakness Aller/Immun Denies wheezing Physical Exam Vital Signs: Last Vital Signs Pulse 78 05/15/23 10:06 Pulse Ox 96 05/15/23 10:06 Oxygen Delivery Method Room Air 05/15/23 10:06 BMI result Body Mass Index 31.8 Const General: alert Neck Neck: Yes normal visual inspection, Yes full ROM and Yes no lymphadenopathy Chest Chest palpation & inspection: normal inspection of the chest Resp Auscultation: diminished lung sounds Cardio Rate: regular rate Rhythm: regular rhythm Heart sounds: S1 normal heart sound present and S2 normal heart sound present GI Palpation (GI): Soft to palpation and nontender Auscultation: normal bowel sounds Skin General skin exam: rashes and/or lesions noted Neuro Cranial nerves: Yes Normal hearing present Assessment & Plan Assessment & Plan (1) Allergy: Code(s): T78.40XA - Allergy, unspecified, initial encounter Qualifiers: Encounter type: initial encounter Qualified Code(s): T78.40XA - Allergy, unspecified, initial encounter (2) Asthma: Code(s): J45.909 - Unspecified asthma, uncomplicated Qualifiers: Asthma complication type: uncomplicated Asthma persistence: persistent Asthma severity: moderate Qualified Code(s): J45.40 - Moderate persistent asthma, uncomplicated Plan stop Wixela start Trelegy 200 daily continue Singulair continue antihistamine therapy short-acting beta agonist as needed consider cardiac eval with increased cardiac size on CXR follow-up in 6 months Medications: New amcpjneqedq-xzwolunob-mltjowaa 200-62.5-25 mcg (Trelegy Ellipta) 1 inh inhalation DAILY 30 days 60 ea 12RF Coding Level of Care Code Est Pt Level 4 (83649) Diagnoses Allergy, initial encounter T78.40XA Encounter type: initial encounter Moderate persistent asthma without complication J45.40 Asthma complication type: uncomplicated Asthma persistence: persistent Asthma severity: moderate Time Spent (min) 17
[2023-05-15 10:06] VITALS: PULSE 78; O2SAT 96; BMI 31.8
== END 2023-05-15 10:28 | disposition home or self-care (01) ==
PROVIDERS: PCP Nurse Practitioner Family; Visit Provider Hospitalist
DX: T78.40XA Allergy, unspecified, initial encounter (principal); J45.40 Moderate persistent asthma, uncomplicated
CPT/HCPCS: 99214

== ENCOUNTER → 2023-05-15 09:55 | Outpatient (BNVA) | payer MEDICARE, MEDICAID, SELFPAY | PROVIDERS: Visit Provider Hospitalist | DX: J45.40 Moderate persistent asthma, uncomplicated (principal); T78.40XA Allergy, unspecified, initial encounter; Z79.899 Other long term (current) drug therapy | CPT/HCPCS: 99212 ==

== ENCOUNTER 2023-09-17 09:35 | Outpatient (REF) | payer OTHER, SELFPAY | END 2023-09-17 09:36 | disposition home or self-care (01) | LOC: HO.MAMMO 09:35 | PROVIDERS: PCP Internal Medicine; Visit Provider Internal Medicine | DX: Z12.31 Encounter for screening mammogram for malignant neoplasm of breast (principal) | CPT/HCPCS: 77063; 77067 ==

== ENCOUNTER → 2023-09-17 10:15 | Outpatient (BNV) | payer OTHER, SELFPAY | PROVIDERS: PCP Internal Medicine; Visit Provider Radiology Diagnostic Radiology | DX: Z12.31 Encounter for screening mammogram for malignant neoplasm of breast (principal) | CPT/HCPCS: 77063; 77067 ==

== ENCOUNTER 2023-11-14 08:42 | Outpatient (AMB) | payer OTHER, SELFPAY ==
[2023-11-14 08:49] VITALS: BP 140/78; PULSE 77; O2SAT 98; BMI 30.9
--- NOTE | 2023-11-14 08:49 | MHC.PC.OV ---
Vital Signs 11/14/23 08:49 Height 5 ft 2 in Weight 169 lb BMI 30.9 BP 140/78 H Blood Pressure Location Lt brachial Position Sitting Pulse 77 Pulse Source Pulse Oximeter Pulse Oximetry (%) 98 Oxygen Delivery Method Room Air Intake Visit Reasons: nose bleeds Allergies alendronate sodium Allergy (Unknown, Verified 11/14/23 08:50) Upset stomach SEASONAL ALLERGIES Allergy (Unknown, Uncoded 11/14/23 08:50) SNEEZING Tobacco use date assessed: 11/14/23 Fall risk assessment: No Falls in past year Last assessed Fall Risk: 11/14/23 Dental Screening Dental Screen Date: 11/14/23 Did you have a dental visit in the last 12 months?: Yes Did you have a dental problem in the last 6 months where you did not have access to dental care?: No Was dental information given to patient?: Patient has dentist HPI nose bleeds HPI Details 78-year-old obese female with asthma GERD hypercholesterolemia last seen in February 2023. Patient's colonoscopy is due this year mammogram is up-to-date bone density is due. Patient follows up with Pulmonary advised to stop wixela and started on Trelegy continuing with Singulair. Concern about cardiomegaly. recently had cruise and came back yesterday having a cough,no fevers, noHA congested, no sore throat nose bleed [facility] Medical History Allergic rhinitis Allergy Anxiety Asthma GERD (gastroesophageal reflux disease) Hypercholesterolemia Insomnia Osteoporosis Vitamin D deficiency Surgical History History of shoulder surgery History of tubal ligation Family History (Updated 02/14/23 @ 14:17 by SHILO Escobedo) Father Cancer Mother Diabetes Myocardial infarction Sister No problems noted. Daughter No problems noted. Son No problems noted. Son No problems noted. Son No problems noted. Social History Housing: House Alcohol intake: current Patient Tobacco Use Status: Never used Tobacco e-Cigarette/Vaping Use: Never Used Second Hand Smoke Exposure: No Advance Directives Date on File: 10/11/21 service: No Current occupational status: retired Cognitive needs: No Hearing needs: No Vision needs: Yes Questionnaire PHQ-9 Over the last 2 weeks, how often have you been bothered by any of the following problems? 1. Little interest or pleasure in doing things: not at all 2. Feeling down, depressed, or hopeless: not at all 3. Trouble falling or staying asleep, or sleeping too much: not at all 4. Feeling tired or having little energy: not at all 5. Poor appetite or overeating: not at all 6. Feeling bad about yourself - or that you are a failure or have let yourself or your family down: not at all 7. Trouble concentrating on things, such as reading the newspaper or watching television: not at all 8. Moving or speaking so slowly that other people could have noticed. Or the opposite - being so fidgety or restless that you have been moving around a lot more than usual: not at all 9. Thoughts that you would be better off or of hurting yourself in some way: not at all Total score: 0 Source: Developed by Drs. Serafin Jason, Stacy Acosta, Maynor Blackmon and colleagues, with an educational tj from [employer]. Thrive Questionnaire Date Thrive assessed: 11/14/23 I am a: Patient What is your living situation today?: I have a steady place to live Within the past 12 months, did the food you bought not last and you didn't have the money to get more?: Never true Within the past 12 months, did you worry whether your food would run out before you got money to buy more?: Never true Do you have trouble paying for medicines?: No Do you have trouble getting transportation to medical appointments?: No Do you have trouble paying your heating and electricity bill?: No Do you have trouble taking care of your child, family member or friend?: No Do you have trouble with day-to-day activities such as bathing, preparing meals, shopping, managing finances, etc.?: No Are you currently unemployed and looking for a job?: No Are you interested in more education?: No Please select the resources that you would like help with: None Currently or been in a relationship where the following occur: no concerns reported THRIVE Score: 0 AUDIT C Alcohol Use Questionnaire (AUDIT-C) 1. How often do you have a drink containing alcohol?: Monthly or less 2. How many drinks containing alcohol do you have on a typical day when you are drinking?: 1 or 2 3. How often do you have six or more drinks on one occasion?: Never Total Score: 1 RACHNA-7 AMB Questionnaire RACHNA-7 Date RACHNA - 7 assessed: 11/14/23 Feeling nervous, anxious, or on edge: 0 = Not at all Not being able to stop or control worryin = Not at all Worrying too much about different things: 0 = Not at all Trouble relaxin = Not at all Being so restless that it is hard to sit still: 0 = Not at all Becoming easily annoyed or irritable: 0 = Not at all Feeling afraid as if something awful might happen: 0 = Not at all Total RACHNA-7 score (0-4 normal; 5-9 mild; 10-14 moderate; 15-21 severe): 0 Source: Developed by Drs. Serafin Jason, Stacy Acosta, Maynor Blackmon and colleagues, with an educational tj from [employer]. Physical exam (Primary Care) Vital Signs: Last Vital Signs Pulse 77 11/14/23 08:49 BP 140/78 H 11/14/23 08:49 Pulse Ox 98 11/14/23 08:49 Oxygen Delivery Method Room Air 11/14/23 08:49 BMI result Body Mass Index 30.9 Tobacco/Smoking Status: Tobacco use Status Tobacco use date assessed 11/14/23 11/14/23 08:55 Patient Tobacco Use Status Never used Tobacco 11/14/23 08:55 Tobacco use type 02/14/23 14:57 e-Cigarette/Vaping Use Never Used 11/14/23 08:55 PHQ-9: PHQ-9 Score PHQ-9: Total score 0 11/14/23 09:08 Thrive Assessment: Date of Thrive Assessment Date Thrive assessed 11/14/23 11/14/23 08:55 Currently or been in a relationship where the following occur: no concerns reported Const General: alert; No acute distress Eyes Conjunctivae: conjunctivae normal Resp Auscultation: clear to auscultation bilaterally Cardio Rate: regular rate Rhythm: regular rhythm GI Inspection: Yes normal to inspection Extrem General: Yes normal to inspection and No edema Assessment and Plan Assessment & Plan (1) GERD (gastroesophageal reflux disease): Code(s): K21.9 - Gastro-esophageal reflux disease without esophagitis Qualifiers: Esophagitis presence: without esophagitis Qualified Code(s): K21.9 - Gastro-esophageal reflux disease without esophagitis Plan: Avoid the foods that causes that usually spicy foods, tomato products, juices, coffee, soda and foods that your sensitive to. After eating do not lie down, allow 3-4 hours before in lie down. And keep the head of bed above 30 degrees to avoid the acid from going up. On omeprazole (2) Hypercholesterolemia: Code(s): E78.00 - Pure hypercholesterolemia, unspecified Plan: Avoid fried foods, chicken skin, eggs, butter margarine, pastries and meat. Be it pork or beef they have a lot of cholesterol LDL goal of less than 130 and triglyceride of less than 150. Patient on simvastatin 40 mg once a day (3) Osteoporosis: Comment: Bone density done August Code(s): M81.0 - Age-related osteoporosis without current pathological fracture Qualifiers: Osteoporosis type: age-related Presence of current pathological fracture: without current pathological fracture Qualified Code(s): M81.0 - Age-related osteoporosis without current pathological fracture Plan: Patient on Actonel and may need bone density test (4) Asthma: Code(s): J45.909 - Unspecified asthma, uncomplicated Qualifiers: Asthma complication type: uncomplicated Asthma persistence: persistent Asthma severity: moderate Qualified Code(s): J45.40 - Moderate persistent asthma, uncomplicated Plan: Continue with Trelegy as well as albuterol patient on montelukast also (5) Shoulder pain, left: Comment: MRI MRI of the left shoulder done November 2022 showing large full-thickness insertional tear both supraspinatus and infraspinatus tendons fatty infiltration hypertrophic arthritis Code(s): M25.512 - Pain in left shoulder (6) Epistaxis: Code(s): R04.0 - Epistaxis Plan: Saline nasal spray and humidifier is help (7) Cardiomegaly: Code(s): I51.7 - Cardiomegaly (8) Acute bronchitis: Code(s): J20.9 - Acute bronchitis, unspecified Plan: reassurance , increase oral fluids and (9) Blood pressure elevated without history of HTN: Code(s): R03.0 - Elevated blood-pressure reading, without diagnosis of hypertension Plan: monitor the BP at home 2-3 x a week and record. advised to ff up and bring list. Orders: Orders ECG 12 lead EKG Today I51.7 - Cardiomegaly Coding Level of Care Code Est Pt Level 4 (63019) Diagnoses Gastroesophageal reflux disease without esophagitis K21.9 Esophagitis presence: without esophagitis Hypercholesterolemia E78.00 Age-related osteoporosis without current pathological fracture M81.0 Osteoporosis type: age-related Presence of current pathological fracture: without current pathological fracture Moderate persistent asthma without complication J45.40 Asthma complication type: uncomplicated Asthma persistence: persistent Asthma severity: moderate Shoulder pain, left M25.512 Epistaxis R04.0 Cardiomegaly I51.7 Acute bronchitis J20.9 Blood pressure elevated without history of HTN R03.0
== END 2023-11-14 09:26 | disposition home or self-care (01) ==
PROVIDERS: PCP Internal Medicine; Visit Provider Internal Medicine
DX: K21.9 Gastro-esophageal reflux disease without esophagitis (principal); E78.00 Pure hypercholesterolemia, unspecified; M81.0 Age-related osteoporosis without current pathological fracture; J45.40 Moderate persistent asthma, uncomplicated; M25.512 Pain in left shoulder; R04.0 Epistaxis; I51.7 Cardiomegaly; J20.9 Acute bronchitis, unspecified; R03.0 Elevated blood-pressure reading, without diagnosis of hypertension
CPT/HCPCS: 99214

== ENCOUNTER → 2023-11-15 08:10 | Outpatient (REF) | payer OTHER, SELFPAY ==
--- NOTE | 2023-11-15 08:16 | ECG_ITS ---
Test Reason : CARDIOMEGALY Blood Pressure : / mmHG Vent. Rate : 060 BPM Atrial Rate : 060 BPM P-R Int : 120 ms QRS Dur : 090 ms QT Int : 436 ms P-R-T Axes : 049 -35 072 degrees QTc Int : 436 ms Normal sinus rhythm with sinus arrhythmia Left axis deviation Nonspecific ST and T wave abnormality Abnormal ECG When compared with ECG of 12-SEP-2004 11:01, No significant change was found Referred By: Mnauel Oviedo Electronically Signed By:KIM LOVE MD
[2023-11-15 08:35] LABS: MANUAL DIFF FLAG NO
[2023-11-15 08:43] LABS: Basophils Percent Auto 0.2 % (0-2); Eosinophils Absolute Auto 0.1 X10*3/uL (0.0-0.4); Eosinophils Percent Auto 2.3 % (0-4); Hematocrit 40.4 % (37.0-47.0); Imm Gran Abs Auto 0.02 X10*3/uL (0.00-0.03); Imm Gran Pct Auto 0.4 % (0.0-0.4); Lymphocytes Absolute Auto 1.4 X10*3/uL (1.2-4.9); Lymphocytes Percent Auto 26.6 % (20-40); Mean Corpuscular HGB Conc 32.2 g/dl (31.0-35.0); Mean Corpuscular Hemoglobin 29.1 pg (27.0-33.0); Mean Corpuscular Volume 90.4 fL (80.0-98.0); Mean Platelet Volume 11.2 fL (9.4-12.3); Monocytes Absolute Auto 0.4 X10*3/uL (0.1-1.2); Monocytes Percent Auto 7.4 % (2-11); Neutrophils Absolute Auto 3.3 x10*3/uL (2.0-8.3); Neutrophils Percent Auto 63.1 % (45-73); Platelet Count 219 X10*3/uL (160-400); Red Blood Count 4.47 X10*6/uL (4.20-5.50); Red Cell Distribution Width 11.4 % (11.0-16.0); White Blood Count 5.2 X10*3/uL (4.8-10.8)
[2023-11-15 09:22] LABS: Alanine Aminotransferase 16 U/L (0-31); Alkaline Phosphatase 81 U/L (39-117); Anion Gap 11 (12-20); Aspartate Amino Transferase 16 U/L (5-31); Bilirubin Total 0.6 mg/dL (0.0-1.0); Blood Urea Nitrogen 8 mg/dL (9-16); Calcium 9.5 mg/dL (8.4-10.2); Carbon Dioxide 30 mmol/L (22-29); Chloride 106 mmol/L (96-108); Cholesterol 171 mg/dL (<200); Estimated Glomerular Filt Rate > 60; Glucose Random 100 mg/dL (60-115); HDL Cholesterol 55 mg/dL (>40); LDL Cholesterol Calculated 100 mg/dL (<100); Potassium 3.6 mmol/L (3.3-5.1); Sodium 143 mmol/L (135-145); Total Protein 7.1 g/dL (6.5-8.0); Triglycerides 81 mg/dL (<150)
[2023-11-15 09:38] LABS: Free T4 (Free Thyroxine) 0.85 ng/dL (0.71-1.85); Thyroid Stimulating Hormone 1.56 uIU/mL (0.32-4.0); Vitamin D 25-OH Total 18.9 ng/mL (>30)
[2023-11-15 12:12] LABS: Folate 11.9 ng/mL (> or = 4.0); Vitamin B12 346 pg/mL (200-900)
== END ==
LOC: HO.CARD 08:10
PROVIDERS: PCP Internal Medicine; Visit Provider Internal Medicine
DX: I51.7 Cardiomegaly (principal); E78.00 Pure hypercholesterolemia, unspecified
CPT/HCPCS: 36415; 80053; 80061; 82306; 82607; 82746; 84439; 84443; 85025; 93005

== ENCOUNTER → 2023-11-15 08:16 | Outpatient (BNV) | payer OTHER, SELFPAY | PROVIDERS: PCP Internal Medicine; Visit Provider Internal Medicine Cardiovascular Disease | DX: I49.9 Cardiac arrhythmia, unspecified (principal) | CPT/HCPCS: 93010 ==

== ENCOUNTER 2023-12-03 09:46 | Outpatient (AMB) | payer OTHER, SELFPAY ==
[2023-12-03 09:54] VITALS: BP 118/70; PULSE 70; O2SAT 97; BMI 30.8
--- NOTE | 2023-12-03 09:54 | MHC.OFFVIS ---
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 Subsequently her business support professional left. Currently she has been having some increasing dyspnea symptoms. She also has chest tightness. She does use her rescue inhaler usually on a daily basis. She does get relief when she uses it. We did review her previous data including a CBC with an elevated eosinophil count suggesting eosinophilic asthma. In addition to that the patient did have a CT scan done back in [address] [facility]. It demonstrated some peribronchial thickening suggesting some degree of bronchitis and atelectasis. Apparently she did have a more recent CT scan of the chest done. Will request a copy of that study as well. The patient does complaint of nasal congestion and postnasal drip In addition to her ongoing respiratory symptoms. The patient has not had any recent pulmonary function studies and will go ahead and order blood work including allergy testing as far as her respiratory therapy she will continue on current regimen. 01/26/2022 the patient is here for a pulmonary follow-up visit. The patient has been doing well. She continues with current respiratory therapy. She has not had to use her rescue inhaler that often. She is using her allergy medicine. 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 Seems to be responding well to the Wixela. In meantime she is having issues with her knees. Having significant knee swelling. She did go to the ER because of significant joint effusion. The effusion was drained which was found to have significant arthritis. She is going to start gel shots soon with hopes that it would be beneficial in that knee surgery. I did talk to her about her pulmonary function studies. Although she does have a moderate obstruction her symptoms are stable and she is able to proceed with general anesthesia at this time. Hopefully the gel shots work and she can postpone surgery for now. 09/12/2022 the patient is here for a pulmonary follow-up visit. The patient overall is doing well from a respiratory status. the patient does have intermittent cough. Typically nonproductive in nature. Gxmt-je-ffoibqau severity. Also has episodes of chest tightness and wheezing. Typically less than once a week. She continues use he works selling with good effect. She also has been using her allergy medicine. She has not had any exacerbations. She has not required any prednisone which is reassuring. The patient continues to walk with arthritis. I did review her last pulmonary function studies again demonstrating moderate COPD. In addition to that the patient has not had a chest x-ray recently. Go ahead and have her get an x-ray today. Otherwise patient will continue with current regimen will follow-up in 8 months to a year. 05/15/2023 the patient is here for a pulmonary follow-up visit. The patient overall is doing well. She recently was exposed to the cold ranging she states that she got congested after that. She is feeling a little better now. She continues use the Wixela. She has not required any prednisone which is reassuring. We did review her last chest x-ray demonstrating some degree of increased cardiac size. The patient has not had any cardiac imaging. She is doing well she denies any significant shortness of breath leg swelling. Otherwise she will benefit from an echocardiogram. She also has a torturous aorta on her x-ray. On examination the patient does have some diminished breath sounds with prolonged expiratory phase. I do believe that she will benefit from the addition of a long-acting muscarinic antagonist. Therefore will switch over to Trelegy inhaler. If the patient worsens she can always call it in order to send her additional medicines to the pharmacy. Will follow-up in 6 months. If the patient develops any worsening symptoms prior to this visit she is to call the office. Consider cardiac evaluation specially with increased cardiac size. 12/03/2023 the patient is here for a pulmonary follow-up visit. Overall the patient has been doing well. She did have an issue with significant epistaxis just in the beginning of November. She did get blood work done which is reassuring. She also had an EKG done with nonspecific changes. Unchanged from previous. The patient primarily was bleeding from her right nostril. Then after that is stopped and she went on a cruise. While she was in a cruise she did develop some chest tightness and wheezing and cough. She felt like she had a respiratory illness. After taking her medications she did feel better and she was subsequently able to continue the cruise without any difficulties. Now back the patient is doing well. Denies any significant chest tightness or wheezing. We again talked about her x-ray showing increased cardiac size. Will go and request an echocardiogram in view of her abnormal chest x-ray to adjust further address the increased cardiac size. The patient is responding well to Trelegy inhaler. She will continue for now she also uses rescue inhaler. I did look at her nasal passages she does have some slight ulceration to the septum on the right side where she was having some bleeding. Has a little bit of bleeding right now. She is going to use a water-based lubricant to the area to minimize irritation. [facility] Medical History Allergic rhinitis Allergy Anxiety Asthma GERD (gastroesophageal reflux disease) Hypercholesterolemia Insomnia Osteoporosis Vitamin D deficiency Surgical History History of shoulder surgery History of tubal ligation Family History (Updated 02/14/23 @ 14:17 by SHILO Escobedo) Father Cancer Mother Diabetes Myocardial infarction Sister No problems noted. Daughter No problems noted. Son No problems noted. Son No problems noted. Son No problems noted. Social History Housing: House Alcohol intake: current Patient Tobacco Use Status: Never used Tobacco e-Cigarette/Vaping Use: Never Used Second Hand Smoke Exposure: No Advance Directives Date on File: 10/11/21 service: No Current occupational status: retired Cognitive needs: No Hearing needs: No Vision needs: Yes Review of Systems Const Denies poor appetite and Denies weakness Eyes Denies no additional complaints ENT Reports Normal hearing present, Denies dizziness, Reports epistaxis, Denies nasal congestion, Denies tinnitus and Denies sore throat Card Denies chest pain, Denies syncope, Denies rapid heart rate, Denies dyspnea and Denies dyspnea on exertion Resp Reports cough, Denies dyspnea, Denies dyspnea on exertion and Denies wheezing GI Denies change in stool character, Reports constipation, Denies diarrhea, Denies nausea and Denies vomiting Denies urinary frequency, Denies difficulty voiding and Denies dysuria Musc Reports arthralgias, Reports joint swelling and Reports limited range of motion Neuro Reports Normal hearing present, Denies dizziness, Denies syncope and Denies weakness Aller/Immun Denies wheezing Physical Exam Vital Signs: Last Vital Signs Pulse 70 12/03/23 09:54 BP 118/70 12/03/23 09:54 Pulse Ox 97 12/03/23 09:54 Oxygen Delivery Method Room Air 12/03/23 09:54 BMI result Body Mass Index 30.8 Const General: alert HEENT General nose exam: Abnormal nasal septum present other (erythematous with minimal bleeding) Neck Neck: Yes normal visual inspection, Yes full ROM and Yes no lymphadenopathy Chest Chest palpation & inspection: normal inspection of the chest Resp Effort & Inspection: normal respiratory effort Auscultation: clear to auscultation bilaterally Cardio Rate: regular rate Rhythm: regular rhythm Heart sounds: S1 normal heart sound present and S2 normal heart sound present GI Palpation (GI): Soft to palpation and nontender Auscultation: normal bowel sounds Skin General skin exam: rashes and/or lesions noted Neuro Cranial nerves: Yes Normal hearing present Assessment & Plan Assessment & Plan (1) Allergy: Code(s): T78.40XA - Allergy, unspecified, initial encounter Qualifiers: Encounter type: initial encounter Qualified Code(s): T78.40XA - Allergy, unspecified, initial encounter (2) Asthma: Code(s): J45.909 - Unspecified asthma, uncomplicated Qualifiers: Asthma complication type: uncomplicated Asthma persistence: persistent Asthma severity: moderate Qualified Code(s): J45.40 - Moderate persistent asthma, uncomplicated (3) Cardiomegaly: Code(s): I51.7 - Cardiomegaly Plan continue Trelegy 200 daily continue Singulair continue antihistamine therapy short-acting beta agonist as needed ECHO saline gel to nose follow-up in 6 months Orders: Orders CA echo transthoracic complete Today I27.20 - Pulmonary hypertension, unspecified, I51.7 - Cardiomegaly Coding Level of Care Code Est Pt Level 4 (59552) Diagnoses Allergy, initial encounter T78.40XA Encounter type: initial encounter Moderate persistent asthma without complication J45.40 Asthma complication type: uncomplicated Asthma persistence: persistent Asthma severity: moderate Cardiomegaly I51.7 Time Spent (min) 16
== END 2023-12-03 10:13 | disposition home or self-care (01) ==
PROVIDERS: PCP Nurse Practitioner Family; Visit Provider Hospitalist
DX: T78.40XA Allergy, unspecified, initial encounter (principal); J45.40 Moderate persistent asthma, uncomplicated; I51.7 Cardiomegaly
CPT/HCPCS: 99214

== ENCOUNTER → 2023-12-03 09:46 | Outpatient (BNVA) | payer OTHER, SELFPAY | PROVIDERS: PCP Nurse Practitioner Family; Visit Provider Hospitalist | DX: J45.909 Unspecified asthma, uncomplicated (principal); R07.89 Other chest pain; I51.7 Cardiomegaly; I27.20 Pulmonary hypertension, unspecified; T78.40XA Allergy, unspecified, initial encounter; X58.XXXA Exposure to other specified factors, initial encounter; Y93.9 Activity, unspecified; Y92.9 Unspecified place or not applicable; Y99.9 Unspecified external cause status | CPT/HCPCS: 99212 ==

== ENCOUNTER 2024-02-08 12:35 | Outpatient (AMB) | payer OTHER, SELFPAY ==
[2024-02-08 12:39] VITALS: BP 130/72; PULSE 74; O2SAT 96; BMI 30.9
--- NOTE | 2024-02-08 12:39 | A.OFFPC_ITS ---
Vital Signs 02/08/24 12:39 Height 5 ft 2 in Weight 169 lb BMI 30.9 BP 130/72 Blood Pressure Location Lt brachial Position Sitting Pulse 74 Pulse Source Pulse Oximeter Pulse Oximetry (%) 96 Oxygen Delivery Method Room Air Intake Visit Reasons: Cold Symptoms, Hypertension Allergies alendronate sodium Allergy (Unknown, Verified 02/08/24 12:39) Upset stomach SEASONAL ALLERGIES Allergy (Unknown, Uncoded 02/08/24 12:39) SNEEZING Tobacco use date assessed: 11/14/23 Fall risk assessment: No Falls in past year Last assessed Fall Risk: 02/08/24 Dental Screening Dental Screen Date: 11/14/23 HPI Hypertension HPI Details 78-year-old obese female with GERD hyper cholesterolemia osteoporosis asthma last seen in 11/21/2023 noted to have an elevated blood pressure. Patient's colonoscopy is due for this year, mammograms up-to-date bone density is due. Review of the notes was seen by Pulmonary in December for the asthma on Trelegy, Singulair ultrasound of the heart recommended. PAtient decline trelegy , did not feels it helps. rx for wipes and pantiliners [facility] Medical History Allergic rhinitis Allergy Anxiety Asthma GERD (gastroesophageal reflux disease) Hypercholesterolemia Insomnia Osteoporosis Vitamin D deficiency Surgical History History of shoulder surgery History of tubal ligation Family History (Updated 02/14/23 @ 14:17 by SHILO Escobedo) Father Cancer Mother Diabetes Myocardial infarction Sister No problems noted. Daughter No problems noted. Son No problems noted. Son No problems noted. Son No problems noted. Social History Housing: House Alcohol intake: current Patient Tobacco Use Status: Never used Tobacco e-Cigarette/Vaping Use: Never Used Second Hand Smoke Exposure: No Advance Directives Date on File: 10/11/21 service: No Current occupational status: retired Cognitive needs: No Hearing needs: No Vision needs: Yes Questionnaire PHQ-9 Over the last 2 weeks, how often have you been bothered by any of the following problems? 1. Little interest or pleasure in doing things: not at all 2. Feeling down, depressed, or hopeless: not at all 3. Trouble falling or staying asleep, or sleeping too much: not at all 4. Feeling tired or having little energy: not at all 5. Poor appetite or overeating: not at all 6. Feeling bad about yourself - or that you are a failure or have let yourself or your family down: not at all 7. Trouble concentrating on things, such as reading the newspaper or watching television: not at all 8. Moving or speaking so slowly that other people could have noticed. Or the opposite - being so fidgety or restless that you have been moving around a lot more than usual: not at all 9. Thoughts that you would be better off or of hurting yourself in some way: not at all Total score: 0 Depression Screening Interpretation: Negative Depression Screening Done: Yes Source: Developed by Drs. Serafin Jason, Stacy Acosta, Maynor Blackmon and colleagues, with an educational tj from [employer]. Thrive Questionnaire Date Thrive assessed: 11/14/23 AUDIT C Alcohol Use Questionnaire (AUDIT-C) 1. How often do you have a drink containing alcohol?: Monthly or less 2. How many drinks containing alcohol do you have on a typical day when you are drinking?: 1 or 2 3. How often do you have six or more drinks on one occasion?: Never Total Score: 1 RACHNA-7 AMB Questionnaire RACHNA-7 Date RACHNA - 7 assessed: 11/14/23 Source: Developed by Drs. Serafin Jason, Stacy Acosta, Maynor Blackmon and colleagues, with an educational tj from [employer]. Physical exam (Primary Care) Vital Signs: Last Vital Signs Pulse 74 02/08/24 12:39 BP 130/72 02/08/24 12:39 Pulse Ox 96 02/08/24 12:39 Oxygen Delivery Method Room Air 02/08/24 12:39 BMI result Body Mass Index 30.9 Tobacco/Smoking Status: Tobacco use Status Tobacco use date assessed 11/14/23 02/08/24 12:41 Patient Tobacco Use Status Never used Tobacco 02/08/24 12:41 Tobacco use type 02/14/23 14:57 e-Cigarette/Vaping Use Never Used 02/08/24 12:41 PHQ-9: PHQ-9 Score PHQ-9: Total score 0 02/08/24 12:41 Depression Screening Interpretation: Negative Thrive Assessment: Date of Thrive Assessment Date Thrive assessed 11/14/23 02/08/24 12:41 Const General: alert; No acute distress Eyes Conjunctivae: conjunctivae normal Resp Auscultation: clear to auscultation bilaterally Cardio Rate: regular rate Rhythm: regular rhythm GI Inspection: Yes normal to inspection Extrem General: Yes normal to inspection and No edema Assessment and Plan Assessment & Plan (1) Blood pressure elevated without history of HTN: Code(s): R03.0 - Elevated blood-pressure reading, without diagnosis of hypertension Plan: Blood pressure presently is in the normal range (2) Asthma: Code(s): J45.909 - Unspecified asthma, uncomplicated Qualifiers: Asthma severity: moderate Asthma persistence: persistent Asthma complication type: uncomplicated Qualified Code(s): J45.40 - Moderate persistent asthma, uncomplicated Plan: Patient follows up with Pulmonary presently on Trelegy and short-acting beta agonist (3) Osteoporosis: Comment: Bone density done August Code(s): M81.0 - Age-related osteoporosis without current pathological fracture Qualifiers: Osteoporosis type: age-related Presence of current pathological fracture: without current pathological fracture Qualified Code(s): M81.0 - Age- related osteoporosis without current pathological fracture Plan: Patient is reminded about bone density (4) Hypercholesterolemia: Code(s): E78.00 - Pure hypercholesterolemia, unspecified Plan: Avoid fried foods, chicken skin, eggs, butter margarine, pastries and meat. Be it pork or beef they have a lot of cholesterol takes simvastatin 40 mg once a day 11/21/2023 last tested (5) GERD (gastroesophageal reflux disease): Code(s): K21.9 - Gastro-esophageal reflux disease without esophagitis Qualifiers: Esophagitis presence: without esophagitis Qualified Code(s): K21.9 - Gastro-esophageal reflux disease without esophagitis Plan: Avoid the foods that causes that usually spicy foods, tomato products, juices, coffee, soda and foods that your sensitive to. After eating do not lie down, allow 3-4 hours before in lie down. And keep the head of bed above 30 degrees to avoid the acid from going up. Orders: Orders XR DEXA axial skeleton Today M81.0 - Age-related osteoporosis without current pathological fracture Referrals General Surgery Referral Z12.11 - Encounter for screening for malignant neoplasm of colon Medications: Refilled [skinny light Pads size 3] As directed 120 ea 3RF R32 - Unspecified urinary incontinence [wipes.] As directed 1 ea 3RF R32 - Unspecified urinary incontinence Discontinued [id number] 200-62.5-25 mcg (Trelegy Ellipta) Discontinued Reason: Patient Refused 1 inh inhalation DAILY 30 days 60 ea 12RF Coding Level of Care Code Est Pt Level 4 (35587) Diagnoses Blood pressure elevated without history of HTN R03.0 Moderate persistent asthma without complication J45.40 Asthma severity: moderate Asthma persistence: persistent Asthma complication type: uncomplicated Age-related osteoporosis without current pathological fracture M81.0 Osteoporosis type: age-related Presence of current pathological fracture: without current pathological fracture Hypercholesterolemia E78.00 Gastroesophageal reflux disease without esophagitis K21.9 Esophagitis presence: without esophagitis
== END 2024-02-08 13:46 | disposition home or self-care (01) ==
PROVIDERS: PCP Internal Medicine; Visit Provider Internal Medicine
DX: R03.0 Elevated blood-pressure reading, without diagnosis of hypertension (principal); J45.40 Moderate persistent asthma, uncomplicated; M81.0 Age-related osteoporosis without current pathological fracture; E78.00 Pure hypercholesterolemia, unspecified; K21.9 Gastro-esophageal reflux disease without esophagitis
CPT/HCPCS: 99214

== ENCOUNTER 2024-03-07 08:51 | Outpatient (REF) | payer OTHER, SELFPAY ==
--- NOTE | ~2024-03-07 | MM_ITS ---
EXAMINATION: BONE DENSITOMETRY CLINICAL INDICATION: Age-related osteoporosis without current pathological fracture. COMPARISON: Previous BD dated 09/07/2021 and baseline BD dated 06/26/2008. TECHNIQUE: Using a [employer] DXA System (software version: 13.1) manufactured by [employer], dual-energy x-ray absorptiometry was performed of the lumbar spine and left hip. The images are of good technical quality. Summary results are attached. FINDINGS: LEFT FEMUR, NECK: Current: BMD 0.711 g/cm2, Z-score -0.6, T-score -2.4, osteopenia. Prior: BMD 0.691 g/cm2. Baseline: BMD 0.918 g/cm2. LEFT FEMUR, TOTAL: Current: BMD 0.788 g/cm2, Z-score -0.2, T-score -1.7, osteopenia, 0.1% decrease from previous, 19.2% decrease from baseline (<5% change is not significant). Prior: BMD 0.789 g/cm2. Baseline: BMD 0.975 g/cm2. AP SPINE L3-L4 (excluding L1 and L2): The data of L1-L4 has been changed to exclude the L1 and L2 vertebral bodies, because degenerative sclerosis at these levels may cause overestimation of lumbar spine density. Current: BMD 0.765 g/cm2, Z-score -2.2, T-score -3.6, osteoporosis, 17.2% decrease from previous, 31.9% decrease from baseline (<5% change is not significant). Prior: BMD 0.924 g/cm2. Baseline: BMD 1.124 g/cm2. IDENTIFIED RISK FACTORS: Menopause. HISTORY OF FRACTURE: None listed. MEDICATIONS: Multivitamin, vitamin D. MM/XR DEXA axial skeleton IMPRESSION: 1. DIAGNOSIS: Osteoporosis based on the lowest T-score value of -3.6 in the lumbar spine applying World Health Organization criteria. 2. 10-YEAR FRACTURE RISK PREDICTION, FRAX: According to the guidelines, FRAX calculation should only be performed on patients in the osteopenia bone density category. Therefore, FRAX was not performed on this patient. 3. Treatment Recommendations: NOF guidelines recommend consideration for treatment in postmenopausal women and men age 50 and older presenting with the following: -A hip or vertebral (clinical or morphometric) fracture. -T-score less than or equal to -2.5 at the femoral neck or spine after appropriate evaluation to exclude secondary causes. -Low bone mass at the hip or spine and a 10-year fracture probability by FRAX of greater than or equal to 3% for hip fracture or greater than or equal to 20% for major osteoporotic fracture based on the [place] adapted WHO algorithm. 4. Other Recommendations: All treatment decisions require clinical judgment and consideration of individual patient factors, including patient preferences, comorbidities, previous drug use, risk factors not captured in the FRAX model (e.g. frailty, falls, vitamin D deficiency, increased bone turnover, interval significant decline in bone density) and possible under or overestimation of fracture risk by FRAX. Additional medical evaluation for secondary cause of low bone mineral density may be appropriate. FUTURE SCAN RECOMMENDATION: People with diagnosed cases of osteoporosis or at high risk for fracture should have regular bone mineral density tests. For patients eligible for Medicare, routine testing is allowed once every 2 years. The testing frequency can be increased to one year for patients who have rapidly progressing disease, those who are receiving or discontinuing medical therapy to restore bone mass, or have additional risk factors.
== END 2024-03-07 08:52 | disposition home or self-care (01) ==
LOC: HO.MAMMO 08:51
PROVIDERS: PCP Internal Medicine; Visit Provider Internal Medicine
DX: M81.0 Age-related osteoporosis without current pathological fracture (principal)
CPT/HCPCS: 77080

== ENCOUNTER 2024-03-24 09:26 | Outpatient (AMB) | payer OTHER, SELFPAY ==
[2024-03-24 09:33] VITALS: BMI 31.5
--- NOTE | 2024-03-24 09:33 | A.OFFVIS_ITS ---
Vital Signs 03/24/24 09:33 Height 5 ft 2 in Weight 172 lb BMI 31.5 Intake Visit Reasons: Malignant neoplasm of colon Intake Note: This patient presents for a recall colonoscopy screening. Pt c/o; reports no complaints at this time. Cargo And Container Inspector Required: No Accompanied by: Self / Same As Patient Allergies alendronate sodium Allergy (Unknown, Verified 03/24/24 09:38) Upset stomach SEASONAL ALLERGIES Allergy (Unknown, Uncoded 03/24/24 09:38) SNEEZING Medication List - Last Reconciled 03/24/24 by Dominick Weber MD albuterol sulfate 2.5 mg (3 mL) inhalation Q4H PRN 30 days albuterol sulfate 90 mcg/actuation 2 inhalations inhalation Q6H PRN 30 days cetirizine 10 mg PO DAILY cholecalciferol (vitamin D3) 25 mcg PO DAILY 90 days cyanocobalamin (vitamin B-12) 1,000 mcg PO DAILY diclofenac sodium 1% 4 grams topical QID PRN fluticasone propion-salmeterol 250-50 mcg/dose (Wixela Inhub) 1 ea inhalation BID fluticasone propionate 50 mcg/actuation 2 sprays intranasal DAILY PRN latanoprost 0.005% 1 drp ophthalmic (eye) BEDTIME meloxicam 1 tab PO DAILY PRN montelukast 10 mg PO DAILY 90 days nebulizers As directed omeprazole 20 mg PO DAILY risedronate (Actonel) 35 mg PO MO simvastatin 40 mg PO QPM [skinny light Pads size 3 As directed] tramadol 50 mg PO Q6H PRN [Weighing scale As directed] [wipes. As directed] HPI HPI Malignant neoplasm of colon: Details: [age] year old female here for screening colonoscopy. Last colonoscopy was 10 years ago and this was unremarkable. She denies any problems with GI functions. She has good oral intake. She feels well overall and appears to be very healthy for her age. She therefore wants to proceed with another colonoscopy. PFSH Medical History Asthma Allergy Hypercholesterolemia Osteoporosis Vitamin D deficiency Anxiety GERD (gastroesophageal reflux disease) Insomnia Allergic rhinitis Surgical History History of shoulder surgery History of tubal ligation Family History Father Cancer Mother Diabetes Myocardial infarction Sister No problems noted. Daughter No problems noted. Son No problems noted. Son No problems noted. Son No problems noted. Social History Housing: House Alcohol intake: current Patient Tobacco Use Status: Never used Tobacco e-Cigarette/Vaping Use: Never Used Second Hand Smoke Exposure: No Advance Directives Date on File: 10/11/21 service: No Current occupational status: retired Cognitive needs: No Hearing needs: No Vision needs: Yes Review of Systems Const Denies chills and Denies fever(s) Card Denies chest pain, Denies dyspnea and Denies dyspnea on exertion Resp Denies cough, Denies dyspnea and Denies dyspnea on exertion GI Denies hematochezia and Denies change in bowel habits Denies hematuria Musc Denies back pain and Denies limited range of motion Neuro Denies focal weakness and Denies convulsions Psych Denies depression and Denies mood swings Physical Exam Vital Signs: BMI result Body Mass Index 31.5 Const General: comfortable and no acute distress Orientation/consciousness: patient oriented x3 Neck Neck: Yes no lymphadenopathy Resp Auscultation: clear to auscultation bilaterally Cardio Rhythm: regular rhythm GI Palpation (GI): Soft to palpation, nontender and no guarding Neuro General: patient oriented x3 Assessment & Plan Assessment & Plan (1) Colon cancer screening: Code(s): Z12.11 - Encounter for screening for malignant neoplasm of colon Category: Medical Plan: She is very healthy for age and she wants to proceed with a colonoscopy. I had a long discussion with her about the technique of the planned procedure. I explained the risks including but not limited to bleeding and perforation, as well as the benefits and alternatives. She wants to proceed This may be her last colonoscopy for screening. Coding Level of Care Code New Pt Level 3 (04451) Diagnoses Colon cancer screening Z12.11
== END 2024-03-24 10:04 | disposition home or self-care (01) ==
PROVIDERS: PCP Internal Medicine; Visit Provider Surgery
DX: Z12.11 Encounter for screening for malignant neoplasm of colon (principal)
CPT/HCPCS: 99024

== ENCOUNTER → 2024-03-24 09:26 | Outpatient (BNVA) | payer OTHER, SELFPAY | PROVIDERS: PCP Internal Medicine; Visit Provider Surgery | DX: Z12.11 Encounter for screening for malignant neoplasm of colon (principal) | CPT/HCPCS: 99212 ==

== ENCOUNTER → 2024-04-08 10:03 | Outpatient (REF) | payer OTHER, SELFPAY ==
--- NOTE | 2024-04-08 10:06 | CA_ITS ---
Transthoracic Echocardiogram Patient (Last, First, Middle): Mildred Monaco, Gender: Female Date of : 1945 Age: 78 Procedure Date: 04/08/2024 Procedure Type: Transthoracic Echocardiogram Location: OP Height: 157.48 cm Weight: 76.2 kg BSA: 1.77 m2 Heart Rate: 51 bpm BP: 122 / 80 mmHg Director Title: DILCIA Referring MD: Renan Delgado MD Staff Nuclear Weapons Officer: Nikunj Moreno MD Symptoms: I27.20 - Pulmonary hypertension, unspecified Study Quality: Fair ECG Rhythm: Bradycardia Conclusions: - 1. Normal LV ejection fraction of 65-70% with impaired relaxation filling pattern 2. Mildly dilated left atrium 3. Cardiac valvular Doppler is within normal limits 4. Normal RV systolic pressure 5. Upper limits of normal ascending aortic size 6. No pericardial effusion Findings Left Ventricle Normal left ventricular size, thickness, and systolic function. The visually estimated ejection fraction is between 65-70%. Spectral Doppler is indicative of an impaired relaxation filling pattern. E/E prime ratio is between 8 and 15 consistent with indeterminate filling pressures. Right Ventricle Normal right ventricular cavity size and systolic function. Atria The left atrium is mildly dilated. There is no evidence of interatrial shunt. The right atrium is normal in size. Aortic Valve Normal aortic valve structure and function. There is no aortic valve stenosis. There is no aortic valve regurgitation. Mitral Valve Normal mitral valve structure and function. There is trace mitral valve regurgitation. There is no mitral valve stenosis. Pulmonic Valve The pulmonic valve is likely normal. There is trace pulmonic valve regurgitation. Tricuspid Valve Normal tricuspid valve structure. There is trace tricuspid valve regurgitation. The right ventricular systolic pressure is normal. The right ventricular systolic pressure is 16 mmHg. Normal right atrial pressure. There is no evidence of pulmonary hypertension. Great Vessels All visible segments of the aorta are normal in size. The pulmonary artery was not well visualized. There is no evidence of plaque in the aorta. Venous The inferior vena cava is normal in size and collapses greater than 50% with inspiration. Pericardium/Pleural There is no evidence of pericardial effusion. Prior Study Comparison No prior study available for comparison. Measurements 2D Linear Measurements IVSd: 0.94 0.6-0.9/0.6-1.0 cm LVIDd: 5.54 3.9-5.3/4.2-5.9 cm LVIDd Index: 3.13 2.4-3.2/2.2-3.1 cm/m2 LVIDs: 3.60 2.0-3.6 cm LVPWd: 0.79 0.7-1.1 cm LA Diam: 3.90 2.7-3.8/3.0-4.0 cm LAIDs Index: 2.20 1.5-2.3 cm/m2 LV Mass: 222.61 67-162/88-224 g LV Mass Index: 125.77 43-95/49-115 g/m2 LVOT Diam: 1.90 3.0+(-)1.3 cm 2D Systolic Function EF 4C: 55.80 >55% EF 2C: 64.20 >55% EF BiP: 61.90 >55% Mitral Valve MV Pk E: 0.64 MV PK A: 0.84 MV Decel Time: 267.00 E/A: 0.80 E'Lateral: 6.96 E'Medial: 5.55 E/E' Med: 11.60 E/E' Lat: 9.20 PHT: 78.00 MVA PHT: 2.82 Decel [place]: 2.40 Aortic Valve AoV Pk Sky: 1.25 AoV Mn Sky: 0.86 AoV VTI: 0.28 AoV Pk Grad: 6.00 Aov Mn Grad: 3.00 LUBNA Cont.VTI: 2.56 LVOT LVOT Pk Sky: 1.08 LVOT Mn Sky: 0.70 LVOT VTI: 0.25 LVOT Pk Grad: 5.00 LVOT Mn Grad: 2.00 LVOT Diam: 1.90 LVOT Area: 2.84 Diastolic Function MV Pk E: 0.64 MV Pk A: 0.84 E/A: 0.80 E'Medial: 5.55 E/E' Med: 11.60 E' Laterial: 6.96 E/E' Lat: 9.20 Right Ventricle TAPSE (mm): 19.10 TVS' Sky: 11.10 Tricuspid Valve TR Pk Sky: 1.83 TR Pk Grad: 13.00 RA Press: 3.00 RVSP: 16.00 Great Vessels Aorta Sinus of Valsalva: 3.00 2.0-3.5 cm Ao Asc: 3.50 2.1-3.4 cm Pulmonary Valve PV Pk Sky: 0.88 Peak PV Grad: 3.00 Updated in Other Vendor System with Status of Final Nikunj Moreno MD electronically signed on 04/08/2024 2:46:27 PM with status of Final
== END ==
LOC: HO.CARD 10:03
PROVIDERS: PCP Internal Medicine; Visit Provider Hospitalist
DX: I27.20 Pulmonary hypertension, unspecified (principal); I51.7 Cardiomegaly
CPT/HCPCS: 93306

== ENCOUNTER → 2024-04-08 10:06 | Outpatient (BNV) | payer OTHER, SELFPAY | PROVIDERS: PCP Internal Medicine; Visit Provider Internal Medicine Cardiovascular Disease | DX: I51.89 Other ill-defined heart diseases (principal) | CPT/HCPCS: 93306 ==

== ENCOUNTER 2024-04-11 11:06 | Day surgery (SDC) | payer OTHER, SELFPAY ==
[2024-04-03 10:24] VITALS: BMI 29.6
[2024-04-11 12:03] VITALS: BP 127/85; PULSE 90; RESP 15; TEMP 36.1; O2SAT 96
[2024-04-11 12:06] VITALS: BMI 30.4
--- NOTE | 2024-04-11 12:06 | MHC.SHP ---
Pre-Procedural Eval Section A - 24 Hr Update-Section A only Date of Service: 04/11/24 The patient is an INPATIENT: No Changes since office visit: No Cold of Flu in the past 2 weeks, No New Medical Problems, No Changes in Medication and No Patient answered all questions The patient has been examined within 24 hours of the surgical procedure. The History & Physical has been completed within 30 days and I have reviewed it.: Yes Section B - Complete if H&P > 30 days Chief Complaint: screening Allergies: Allergies Allergy/AdvReac Type Severity Reaction Status Date / Time alendronate sodium AdvReac Intermediate Upset Verified 04/03/24 09:50 stomach SEASONAL ALLERGIES Allergy Intermediate SNEEZING, Uncoded 04/03/24 09:50 runny nose Plan I have reviewed the history and physical and performed a pertinent physical examination on my patient. No changes have occurred unless specified. Time Spent With Patient Time: Total time managing care of this patient today ____ minutes.
--- NOTE | 2024-04-11 12:14 | P.CONAN_ITS ---
HPI - Anesthesia Eval Consult details Narrative: for colonoscopy [facility] Active Problems Active Problems: All Active Problems Colon cancer screening (Acute) Blood pressure elevated without history of HTN (Acute) Acute bronchitis (Acute) Cardiomegaly (Acute) Epistaxis (Acute) Otitis media (Acute) Knee osteoarthritis (Acute) Left knee pain (Acute) Shoulder pain, left (Acute) Generalized anxiety disorder (Acute) Annual physical exam (Acute) Urinary incontinence (Acute) Annual visit for general adult medical examination without abnormal findings (Acute) Breast cancer screening by mammogram (Acute) Osteoarthritis (Acute) Asthma (Acute) Allergy (Acute) Osteoporosis (Acute) Hypercholesterolemia (Acute) Anxiety (Acute) GERD (gastroesophageal reflux disease) (Acute) Past Medical History Medical History Left knee pain Cardiomegaly Glaucoma Asthma Allergy Hypercholesterolemia Osteoporosis Vitamin D deficiency Anxiety GERD (gastroesophageal reflux disease) Insomnia Allergic rhinitis Family History Family History Father Cancer Mother Diabetes Myocardial infarction Sister No problems noted. Daughter No problems noted. Son No problems noted. Son No problems noted. Son No problems noted. Family history of problems with anesthesia: No Surgical History Surgical History Hx of colonoscopy History of shoulder surgery History of tubal ligation History of Problems with Anesthesia: No Social History Social History Housing: House Are you a primary healthcare financial analyst to a significant other at home: No Do you presently have visiting nurse or other home services: No Alcohol intake: current Alcohol intake frequency: holidays/special occasions only Patient Tobacco Use Status: Never used Tobacco e-Cigarette/Vaping Use: Never Used Second Hand Smoke Exposure: No Use of substances other than those prescribed or required for medical reasons: No Have you been hit, kicked, punched, or otherwise hurt by someone within the past year? If so, by whom?: No Are you DNR?: No Advance Directives: Yes Advance Directives Information Provided: No Advance Directives on File: Yes Advance Directives Date on File: 10/11/21 Recently lost weight without trying: No Nutrition Risks: Surgical patient >75years service: No Current occupational status: retired Cognitive needs: No Hearing needs: No Vision needs: Yes Meds Allergies Allergy/AdvReac Type Severity Reaction Status Date / Time alendronate sodium AdvReac Intermediate Upset Verified 04/03/24 09:50 stomach SEASONAL ALLERGIES Allergy Intermediate SNEEZING, Uncoded 04/03/24 09:50 runny nose Active Medications: Current Medications Lactated Ringer's (Lr) 1,000 mls @ 100 mls/hr IVCONT .Q10H FABI Home Medications ?Medication ?Instructions ?Recorded ?Confirmed ?Last Taken ?Type cyanocobalamin (vitamin B-12) 1,000 mcg PO DAILY 10/07/20 04/03/24 11/28/21 History 1,000 mcg tablet fluticasone propionate 50 2 spray intranasal DAILY PRN 10/07/20 04/03/24 Unknown History mcg/actuation nasal Allergic Symptoms spray,suspension meloxicam 15 mg tablet 1 tab PO DAILY PRN pain 11/29/21 04/03/24 Unknown History tramadol 50 mg tablet 50 mg PO Q6H PRN Pain 01/26/22 04/03/24 Unknown History latanoprost 0.005 % eye drops 1 drp ophthalmic (eye) BEDTIME 09/12/22 04/03/24 Unknown History nebulizers 05/15/23 03/24/24 Unknown History Exam Height,Weight and Vital Signs: Height 5 ft 2 in Weight 75.296 kg Last Vital Signs Temp 97.0 F 04/11/24 12:03 Pulse 90 04/11/24 12:03 Resp 15 04/11/24 12:03 BP 127/85 04/11/24 12:03 Pulse Ox 96 04/11/24 12:03 O2 Del Method Room Air 04/11/24 12:03 Airway Mallampati Class: II TM Dist: >3cm Neck ROM: Full Denture: Upper and Lower Heart: ok Lungs: ok Assessment and Plan Assessment Anesthesia Assessment: Anesthesia Plan Discussed and Chart Reviewed Final Anesthetic Review Family History of Problems with Anesthesia: No History of Problems with Anesthesia: No NPO: Yes ASA Class: III Final Preanesthetic Review: No Changes in Pt Med Stat, Meds/Allgs Chart Reviewed, Consent Obtained/Reviewed and Anes Risks/Benef Reviewed Patient Risk: Intermediate Procedure Risk: Low Anesthetic Plan Anesthetic Plan: MAC: and Agree w/ Assess. and Plan Disposition: Standard PACU
--- NOTE | 2024-04-11 12:48 | W.PM.OPN ---
Operative Note Operative Note Date of Service: 04/11/24 Narrative: Preop diagnosis: Colon cancer screening Postop diagnosis: 1. Heavy diverticulosis of the sigmoid 2. Small polyp at level 25, about 4 mm, removed with multiple bites of the cold forceps Procedure: Colonoscopy with polypectomy using cold forceps x1 Surgeon: Dominick Weber MD The patient is a 78-year-old female who is here for screening colonoscopy. She understood the technique of the planned procedure as well as the risks, benefits, and alternatives. The patient was brought to the operating room and placed in left lateral decubitus position under monitored anesthesia care. A surgical time-out was done. A full digital rectal exam was done and this did not reveal any significant anal lesions. The tip of the Olympus colonoscope was gently introduced through the anal orifice advanced with insufflation all the way to the cecum. The cecum was intubated. The cecum was identified by visualization of the ileocecal valve as well as the appendiceal orifice. The cecal mucosa was unremarkable. The scope was gradually withdrawn with careful examination of the entire colonic mucosa being done with scope withdrawal. The patient had adequate bowel prep so it was unlikely that any lesion may have been missed. There was note of heavy diverticulosis the sigmoid. There was note of a small polyp about 4 mm in the sigmoid at level 25 cm. This was removed with multiple bites of the cold forceps. The rectum was reached and there were no lesions seen. The anal canal was unremarkable. The scope was then withdrawn completely with desufflation. The patient tolerated the procedure well. There were no immediate complications. Depending on the path report, this may be her last colonoscopy for screening.
[2024-04-11 12:51] VITALS: BP 94/55; PULSE 81; RESP 18; TEMP 36.4; O2SAT 98
[2024-04-11 13:06] VITALS: BP 117/73; PULSE 68; RESP 17; TEMP 36.2; O2SAT 98
== END 2024-04-11 13:29 | disposition home or self-care (01) ==
PROVIDERS: PCP Internal Medicine; Visit Provider Surgery
PROC: 0DBE8ZZ Excision of Large Intestine, Via Natural or Artificial Opening Endoscopic (ICD-10-PCS; CPT 45380; principal; 2024-04-11 12:40)
DX: Z12.11 Encounter for screening for malignant neoplasm of colon (principal); D12.5 Benign neoplasm of sigmoid colon; K57.30 Diverticulosis of large intestine without perforation or abscess without bleeding; K64.8 Other hemorrhoids; K21.9 Gastro-esophageal reflux disease without esophagitis; M81.0 Age-related osteoporosis without current pathological fracture; E55.9 Vitamin D deficiency, unspecified; E78.00 Pure hypercholesterolemia, unspecified; J45.909 Unspecified asthma, uncomplicated; F41.9 Anxiety disorder, unspecified; G47.00 Insomnia, unspecified; Z79.51 Long term (current) use of inhaled steroids; Z79.899 Other long term (current) drug therapy; Z88.8 Allergy status to other drugs, medicaments and biological substances; Z98.51 Tubal ligation status
CPT/HCPCS: 45380; 88305; J2704

== ENCOUNTER → 2024-04-11 11:06 | Outpatient (BNV) | payer OTHER, SELFPAY | PROVIDERS: PCP Internal Medicine; Visit Provider Surgery | DX: Z12.11 Encounter for screening for malignant neoplasm of colon (principal); K63.5 Polyp of colon; K57.90 Diverticulosis of intestine, part unspecified, without perforation or abscess without bleeding | CPT/HCPCS: 45380 ==

== ENCOUNTER 2024-05-08 09:16 | Outpatient (AMB) | payer OTHER, SELFPAY ==
--- NOTE | 2024-05-08 09:16 | A.OFFVIS_ITS ---
Intake Visit Reasons: S/P Colonoscopy Intake Note: Phone telehealth to discuss colonoscopy results. Pt c/o; reports no complaints. Shot Lighter Required: Yes Shot Lighter Language: Casing Wringer Operator Services: Shot Lighter Present Shot Lighter Name: Arben Information Interpreted: non-clinical & clinical Accompanied by: Self / Same As Patient Allergies alendronate sodium Adverse Reaction (Intermediate, Verified 05/08/24 09:17) Upset stomach SEASONAL ALLERGIES Allergy (Intermediate, Uncoded 05/08/24 09:17) SNEEZING, runny nose HPI HPI S/P Colonoscopy: Details: She had a colonoscopy for screening last 04/11/2024. She tolerated the procedure well. He denies any significant complaints at this time. [facility] Medical History (Updated 05/08/24 @ 09:18 by Dominick Weber MD) Diverticulosis Tubular adenoma Left knee pain Cardiomegaly Glaucoma Asthma Allergy Hypercholesterolemia Osteoporosis Vitamin D deficiency Anxiety GERD (gastroesophageal reflux disease) Insomnia Allergic rhinitis Surgical History History of colonoscopy with polypectomy (~04/11/24) Hx of colonoscopy History of shoulder surgery History of tubal ligation Family History Father Cancer Mother Diabetes Myocardial infarction Sister No problems noted. Daughter No problems noted. Son No problems noted. Son No problems noted. Son No problems noted. Social History Housing: House Are you a primary care navigator to a significant other at home: No Do you presently have visiting nurse or other home services: No Alcohol intake: current Alcohol intake frequency: holidays/special occasions only Patient Tobacco Use Status: Never used Tobacco e-Cigarette/Vaping Use: Never Used Second Hand Smoke Exposure: No Advance Directives Date on File: 10/11/21 service: No Current occupational status: retired Cognitive needs: No Hearing needs: No Vision needs: Yes Review of Systems Const Denies chills and Denies fever(s) Card Denies chest pain, Denies dyspnea and Denies dyspnea on exertion Resp Denies cough, Denies dyspnea and Denies dyspnea on exertion GI Denies hematochezia and Denies change in bowel habits Denies hematuria Musc Denies back pain and Denies limited range of motion Neuro Denies focal weakness and Denies convulsions Psych Denies depression and Denies mood swings Telehealth Telehealth Telehealth Platform: Telephone Location of provider rendering services: practice address Location of patient: address on file Patient Identification confirmed using: Name, : Yes Telehealth method: voice only Patient verbally consented to treatment: Yes Patient verbally consented to billing insurance company: Yes Patient informed of any privacy concerns related to visit: Yes Assessment & Plan Assessment & Plan (1) Tubular adenoma: Code(s): D36.9 - Benign neoplasm, unspecified site Category: Medical Plan: Status post colonoscopy for screening. I removed 1 small polyp and this was a tubular adenoma. I explained to her the benign nature of this pathology. In view of her age and average risk, this will be her last colonoscopy for screening. She understands this well. She can follow up on a p.r.n. basis This was a telehealth visit. (2) Diverticulosis: Code(s): K57.90 - Diverticulosis of intestine, part unspecified, without perforation or abscess without bleeding Category: Medical Plan: She had heavy diverticulosis in her sigmoid colon. She denies any symptoms at this time. Coding Level of Care Code Tele Est Pt Level 2 (18326) Diagnoses Tubular adenoma D36.9 Diverticulosis K57.90
== END 2024-05-08 09:16 | disposition home or self-care (01) ==
LOC: HO.HGS 09:16
PROVIDERS: PCP Internal Medicine; Visit Provider Surgery
DX: D36.9 Benign neoplasm, unspecified site (principal); K57.90 Diverticulosis of intestine, part unspecified, without perforation or abscess without bleeding
CPT/HCPCS: 99441

== ENCOUNTER → 2024-05-08 09:16 | Outpatient (BNVA) | payer OTHER, SELFPAY | PROVIDERS: PCP Internal Medicine; Visit Provider Surgery ==

== ENCOUNTER 2024-06-13 23:52 | Emergency (ER) | payer OTHER, SELFPAY ==
[2024-06-13 23:55] VITALS: BP 130/91; PULSE 80; RESP 18; TEMP 36.3; O2SAT 95; BMI 29.1
[2024-06-14] VITALS: BP 169/90; PULSE 84; RESP 17; TEMP 36.7; O2SAT 97
--- NOTE | 2024-06-14 00:11 | ED_ITS ---
History of Present Illness General Chief Complaint: Epistaxis Stated Complaint: severe nose bleed Time Seen by Provider: 06/14/24 00:11 Source: patient Mode of arrival: ambulatory Limitations: no limitations History of Present Illness HPI Narrative: Patient's history of recurrent epistaxis was watching TV all of a sudden noticed bleeding from the right nostril not on any anticoagulation had normal platelet counts in the past Related Data Home Medications ?Medication ?Instructions ?Recorded ?Confirmed cyanocobalamin (vitamin B-12) 1,000 mcg PO DAILY 10/07/20 04/03/24 1,000 mcg tablet fluticasone propionate 50 2 spray intranasal DAILY PRN 10/07/20 04/03/24 mcg/actuation nasal Allergic Symptoms spray,suspension meloxicam 15 mg tablet 1 tab PO DAILY PRN pain 11/29/21 04/03/24 tramadol 50 mg tablet 50 mg PO Q6H PRN Pain 01/26/22 04/03/24 latanoprost 0.005 % eye drops 1 drp ophthalmic (eye) BEDTIME 09/12/22 04/03/24 nebulizers 05/15/23 03/24/24 Previous Rx's ?Medication ?Instructions ?Recorded diclofenac sodium 1 % topical gel 4 g topical QID PRN Pain #100 grams 01/06/22 risedronate 35 mg tablet (Actonel) 35 mg PO MO #12 tabs 01/23/22 Weighing scale #1 ea 06/05/22 albuterol sulfate 2.5 mg/3 mL 2.5 mg (3 mL) inhalation Q4H PRN 12/06/22 (0.083 %) solution for nebulization wheezing 30 days #180 mL albuterol sulfate 90 mcg/actuation 2 inh inhalation Q6H PRN shortness 06/02/23 aerosol inhaler of breath or wheezing 30 days #18 grams cetirizine 10 mg tablet 10 mg PO DAILY #90 tabs 12/25/23 omeprazole 20 mg capsule,delayed 20 mg PO DAILY #90 caps 12/27/23 release cholecalciferol (vitamin D3) 25 25 mcg PO DAILY 90 days #90 caps 01/02/24 mcg (1,000 unit) capsule montelukast 10 mg tablet 10 mg PO DAILY 90 days #90 tabs 01/02/24 skinny light Pads size 3 #120 ea 02/08/24 wipes. #1 ea 02/08/24 simvastatin 40 mg tablet 40 mg PO QPM #90 tabs 03/24/24 sodium,potassium,mag sulfates 17.5 See Rx Instructions PO .COMPLEX 03/24/24 gram-3.13 gram-1.6 gram oral soln #354 mL (Suprep Bowel Prep Kit) fluticasone 250 mcg-salmeterol 50 1 ea inhalation BID #60 caps 04/08/24 mcg/dose blistr powdr for inhalation (Wixela Inhub) Allergies Allergy/AdvReac Type Severity Reaction Status Date / Time alendronate sodium AdvReac Intermediate Upset Verified 06/13/24 23:57 stomach SEASONAL ALLERGIES Allergy Intermediate SNEEZING, Uncoded 06/13/24 23:57 runny nose Review of Systems Review of Systems: Yes all other systems are reviewed and are negative [facility] Past Medical History Medical History Diverticulosis Tubular adenoma Left knee pain Cardiomegaly Glaucoma Asthma Allergy Hypercholesterolemia Osteoporosis Vitamin D deficiency Anxiety GERD (gastroesophageal reflux disease) Insomnia Allergic rhinitis Surgical History History of colonoscopy with polypectomy (~04/11/24) Hx of colonoscopy History of shoulder surgery History of tubal ligation Family History Family History Father Cancer Mother Diabetes Myocardial infarction Sister No problems noted. Daughter No problems noted. Son No problems noted. Son No problems noted. Son No problems noted. Social History Social History Housing: House Are you a primary pharmacy care coordinator to a significant other at home: No Do you presently have visiting nurse or other home services: No Alcohol intake: current Alcohol intake frequency: holidays/special occasions only Patient Tobacco Use Status: Never used Tobacco Smoked in Last 30 Days: No e-Cigarette/Vaping Use: Never Used Second Hand Smoke Exposure: No Use of substances other than those prescribed or required for medical reasons: No Advance Directives: Yes Advance Directives on File: Yes Advance Directives Date on File: 10/11/21 service: No Current occupational status: retired Cognitive needs: No Hearing needs: No Vision needs: Yes Physical Exam Vital Signs: Vital Signs: Last Vital Signs Temp 97.9 F 06/14/24 00:30 Pulse 84 06/14/24 00:30 Resp 17 06/14/24 00:30 BP 169/90 H 06/14/24 00:30 Pulse Ox 97 06/14/24 00:30 O2 Del Method Room Air 06/14/24 00:30 BMI result Body Mass Index 29.1 Appearance: Alert. Oriented X3. No acute distress. ENT: Pharynx normal. Oral Mucosa moist no active bleeding at this time erythema of the right little area Neck: Normal inspection. Neck supple. CVS: Normal heart rate and rhythm. Pulses normal. Respiratory: No respiratory distress. Equal air entry bilateral, no wheez ing/rales/rhonchi Abdomen: Soft and nontender. Bowel sounds are present, Skin: Skin warm and dry. Normal skin color. Normal skin turgor. Extremities: No lower extremity edema. No calf tenderness Neuro: Oriented X 3. Medications Administered Discontinued Medications Generic Name Dose Route Start Last Admin Trade Name Freq PRN Reason Stop Dose Admin Silver Nitrate 1 appl 06/14/24 00:16 06/14/24 00:28 Silver Nitrate Applicator Stick..Ea. TOPICAL 06/14/24 00:17 1 appl ONCE ONE Administration Procedures Epistaxis Control Nostril: Yes right Direct inspection: Yes anterior source identified Direct inspection method: Yes otoscope Epistaxis treatment: Yes silver nitrate cautery Results of treatment: Yes bleeding controlled Complications: Yes none Discharge Plan Discharge Clinical Impression: Epistaxis Patient Disposition: Home, Self-Care Instructions: Nosebleed (ED) Additional Instructions: Local care as advised Apply local pressure if recurrence of the bleed Prescriptions: No Action risedronate [Actonel] 35 mg tablet 35 mg PO MO Qty: 12 2RF Rx Instructions: administer at least 30 minutes before the first food or drink of the day other than water. (DME) Weighing scale See Rx Instructions .Route .MEDSUPPLY Qty: 1 0RF Rx Instructions: As directed albuterol sulfate 2.5 mg /3 mL (0.083 %) solution for nebulization 2.5 mg inhalation Q4H PRN (Reason: wheezing) 30 Days Qty: 180 11RF albuterol sulfate 90 mcg/actuation HFA aerosol inhaler 2 inh inhalation Q6H PRN (Reason: shortness of breath or wheezing) 30 Days Qty: 18 5RF cetirizine 10 mg tablet 10 mg PO DAILY Qty: 90 3RF omeprazole 20 mg capsule,delayed release(DR/EC) 20 mg PO DAILY Qty: 90 3RF cholecalciferol (vitamin D3) 25 mcg (1,000 unit) capsule 25 mcg PO DAILY 90 Days Qty: 90 3RF montelukast 10 mg tablet 10 mg PO DAILY 90 Days Qty: 90 3RF simvastatin 40 mg tablet 40 mg PO QPM Qty: 90 3RF fluticasone propion-salmeterol [Wixela Inhub] 250-50 mcg/dose blister with device 1 ea inhalation BID Qty: 60 12RF meloxicam 15 mg tablet 1 tab PO DAILY PRN (Reason: pain) fluticasone propionate 50 mcg/actuation spray,suspension 2 spray intranasal DAILY PRN (Reason: Allergic Symptoms) Rx Instructions: administer into each nostril cyanocobalamin (vitamin B-12) 1,000 mcg tablet 1,000 mcg PO DAILY (DME) skinny light Pads size 3 See Rx Instructions .Route .MEDSUPPLY Qty: 120 3RF Rx Instructions: As directed (DME) wipes. See Rx Instructions .Route .MEDSUPPLY Qty: 1 3RF Rx Instructions: As directed diclofenac sodium 1 % gel 4 g topical QID PRN (Reason: Pain) Qty: 100 11RF Rx Instructions: apply to single elbow, wrist or hand; for hand includes palm/fingers/back of hand tramadol 50 mg tablet 50 mg PO Q6H PRN (Reason: Pain) latanoprost 0.005 % drops 1 drp ophthalmic (eye) BEDTIME (DME) nebulizers Misc See Rx Instructions .Route Rx Instructions: As directed sodium,potassium,mag sulfates [Suprep Bowel Prep Kit] 17.5-3.13-1.6 gram recon soln See Rx Instructions PO .COMPLEX Qty: 354 0RF Rx Instructions: DILUTE; drink full amount early evening before AND next morning at least 2 hr before procedure; follow w 960 mL water PO Interventions: ED Discharge Assessment Last Done: 06/14/24 00:30 Print Language: Uruguayan
[2024-06-14] MEDS: Silver Nitrate Applicator STICK..EA. 1 APPL TOPICAL (00:28)
[2024-06-14 00:30] VITALS: BP 169/90; PULSE 84; RESP 17; TEMP 36.6; O2SAT 97
== END 2024-06-14 00:33 | disposition home or self-care (01) ==
PROVIDERS: Emergency Provider Internal Medicine; PCP Internal Medicine
DX: R04.0 Epistaxis (principal)
CPT/HCPCS: 30901; 99284

== ENCOUNTER 2024-06-20 09:11 | Outpatient (AMB) | payer OTHER, SELFPAY ==
[2024-06-20 09:13] VITALS: BMI 30.9
--- NOTE | 2024-06-20 09:13 | A.OFFPC_ITS ---
Vital Signs 06/20/24 09:13 06/20/24 09:38 Height 5 ft 2 in Weight 169 lb BMI 30.9 BP 122/82 Blood Pressure Location Lt brachial Lt brachial Position Sitting Sitting Pulse Source Pulse Oximeter Oxygen Delivery Method Room Air Intake Visit Reasons: [facility] 06/14 heavy nose bleed Intake Note: Patient is here for hospital discharge follow up. Patient was discharged from [facility] on 06/14/24 Rnfa Required: No Allergies alendronate sodium Adverse Reaction (Intermediate, Verified 06/20/24 09:13) Upset stomach SEASONAL ALLERGIES Allergy (Intermediate, Uncoded 06/20/24 09:13) SNEEZING, runny nose Medication List - Last Reconciled 06/20/24 by Mahnaz Anderson PA-C albuterol sulfate 2.5 mg (3 mL) inhalation Q4H PRN 30 days albuterol sulfate 90 mcg/actuation 2 inhalations inhalation Q6H PRN 30 days cetirizine 10 mg PO DAILY cholecalciferol (vitamin D3) 25 mcg PO DAILY 90 days cyanocobalamin (vitamin B-12) 1,000 mcg PO DAILY diclofenac sodium 1% 4 grams topical QID PRN fluticasone propion-salmeterol 250-50 mcg/dose (Wixela Inhub) 1 ea inhalation BID fluticasone propionate 50 mcg/actuation 2 sprays intranasal DAILY PRN latanoprost 0.005% 1 drp ophthalmic (eye) BEDTIME meloxicam 1 tab PO DAILY PRN montelukast 10 mg PO DAILY 90 days nebulizers As directed omeprazole 20 mg PO DAILY risedronate (Actonel) 35 mg PO MO simvastatin 40 mg PO QPM [skinny light Pads size 3 As directed] tramadol 50 mg PO Q6H PRN [Weighing scale As directed] [wipes. As directed] Tobacco use date assessed: 11/14/23 Fall risk assessment: No Falls in past year Last assessed Fall Risk: 06/20/24 Dental Screening Dental Screen Date: 11/14/23 [facility] 06/14 heavy nose bleed HPI Details 79-year-old female with past medical his tory of GERD, hypercholesterolemia, osteoporosis, and asthma last seen by Dr. Oviedo February 2024 coming in for hospital discharge follow up. In review of the notes, patient was seen in [facility] ED 06/14/2024 for recurrent epistaxis. Source of the bleed was identified in the anterior aspect of the nostril and cauterized with silver nitrate and patient was discharged home. Patient states she was sitting on the couch when the nosebleed began and she was bleeding out of the right nostril only. The bleed lasted for less than half an hour before going to the ER and has not had nosebleeds since cauterization of the blood vessel. She also mentioned she is having right shoulder pain and was seen by ortho Sunday and had a cortisone shot but does still continue to have pain. [facility] Medical History Diverticulosis Tubular adenoma Left knee pain Cardiomegaly Glaucoma Asthma Allergy Hypercholesterolemia Osteoporosis Vitamin D deficiency Anxiety GERD (gastroesophageal reflux disease) Insomnia Allergic rhinitis Surgical History History of colonoscopy with polypectomy (~04/11/24) Hx of colonoscopy History of shoulder surgery History of tubal ligation Family History Father Cancer Mother Diabetes Myocardial infarction Sister No problems noted. Daughter No problems noted. Son No problems noted. Son No problems noted. Son No problems noted. Social History Housing: House Are you a primary care team coordinator scheduler to a significant other at home: No Do you presently have visiting nurse or other home services: No Alcohol intake: current Alcohol intake frequency: holidays/special occasions only Patient Tobacco Use Status: Never used Tobacco e-Cigarette/Vaping Use: Never Used Second Hand Smoke Exposure: No Advance Directives Date on File: 10/11/21 service: No Current occupational status: retired Cognitive needs: No Hearing needs: No Vision needs: Yes Questionnaire Thrive Questionnaire Date Thrive assessed: 11/14/23 I am a: Patient What is your living situation today?: I have a steady place to live Within the past 12 months, did the food you bought not last and you didn't have the money to get more?: Never true Within the past 12 months, did you worry whether your food would run out before you got money to buy more?: Never true Do you have trouble paying for medicines?: No Do you have trouble getting transportation to medical appointments?: No Do you have trouble paying your heating and electricity bill?: No Do you have trouble taking care of your child, family member or friend?: No Do you have trouble with day-to-day activities such as bathing, preparing meals, shopping, managing finances, etc.?: No Are you currently unemployed and looking for a job?: No Are you interested in more education?: No Please select the resources that you would like help with: None Currently or been in a relationship where the following occur: No concerns reported THRIVE Score: 0 AUDIT C Alcohol Use Questionnaire (AUDIT-C) 1. How often do you have a drink containing alcohol?: Monthly or less 2. How many drinks containing alcohol do you have on a typical day when you are drinking?: 1 or 2 3. How often do you have six or more drinks on one occasion?: Never Total Score: 1 RACHNA-7 AMB Questionnaire RACHNA-7 Date RACHNA - 7 assessed: 11/14/23 Source: Developed by Drs. Serafin Jason, Stacy Acosta, Maynor Blackmon and colleagues, with an educational tj from [employer]. Review of Systems Const Denies body aches, Denies chills and Denies fever(s) Eyes Reports no additional complaints ENT Denies epistaxis, Denies nasal congestion, Denies nasal discharge, Denies nose pain and Denies sore throat Card Denies chest pain and Denies dyspnea Resp Denies dyspnea GI Reports no additional complaints Musc Details: Right shoulder pain Skin/Breast Reports system reviewed and no additional complaints, except as documented Physical exam (Primary Care) Vital Signs: Oxygen Delivery Method Room Air 06/20/24 09:13 BMI result Body Mass Index 30.9 Tobacco/Smoking Status: Tobacco use Status Tobacco use date assessed 11/14/23 06/20/24 09:16 Patient Tobacco Use Status Never used Tobacco 06/20/24 09:16 Tobacco use type 02/14/23 14:57 e-Cigarette/Vaping Use Never Used 06/20/24 09:16 Thrive Assessment: Date of Thrive Assessment Date Thrive assessed 11/14/23 06/20/24 09:16 Currently or been in a relationship where the following occur: No concerns reported Const General: cooperative, healthy appearing, comfortable and no acute distress Orientation/consciousness: patient oriented x3 HENMT Head: Yes normocephalic Ears: hearing grossly normal bilaterally General nose exam: Normal external nose present Eyes General: appearance normal, both eyes and all related structures Conjunctivae: conjunctivae normal Neck Neck: Yes full ROM and Yes no lymphadenopathy Resp Effort & Inspection: normal respiratory effort Auscultation: clear to auscultation bilaterally, no crackles, no rales, no rhonchi and no wheezes Cardio Rate: regular rate Rhythm: regular rhythm Skin General skin exam: no rashes or lesions noted Neuro General: patient oriented x3 Gait exam (Neuro): Normal gait present Extrem General: Yes normal to inspection, Yes full ROM and No edema Psych Affect: normal affect Attitude: cooperative Insight: Good insight present (Psych) Judgement: Good judgement present (Psych) Office Procedures Flu Questionnaire Does the patient have a severe egg allergy?: No Does the patient have severe life threatening allergies?: No Does the patient have a fever or illness today?: No Has the patient ever had Guillain-Dubois Syndrome?: No Has the patient ever had any past reaction to a flu shot?: No Immunizations Fluarix Triv [id number] (PF) 45 mcg (15 mcg x 3)/0.5 mL IM syringe Performing Provider: Mahnaz Anderson PA-C [facility] Administered by: SHILO Castro on 06/20/24 09:38 Dose Route Admin Location Dispensed Lot Number Expiration Date [facility] [place] [employer] 0.5 mL IM Left Deltoid 0.5 mL [id number] 03/02/25 [id number] [employer] VIS Given Date VIS Provided VIS Publication Date 06/20/24 Single Vaccine 21 Eligibility Eligibility Date Funding Source Not [facility] Eligible 06/20/24 Private Coding Level of Care Code Est Pt Level 3 (33976) Diagnoses Epistaxis R04.0 Gastroesophageal reflux disease without esophagitis K21.9 Esophagitis presence: without esophagitis Hypercholesterolemia E78.00 Right shoulder pain M25.511 Assessment & Plan Assessment & Plan (1) Epistaxis: Code(s): R04.0 - Epistaxis Category: Medical Plan: Continue to monitor symptoms. Advised patient to keep the nose well hydrated may use Vaseline or saline nasal spray. (2) GERD (gastroesophageal reflux disease): Code(s): K21.9 - Gastro-esophageal reflux disease without esophagitis Category: Medical Qualifiers: Esophagitis presence: without esophagitis Qualified Code(s): K21.9 - Gastro-esophageal reflux disease without esophagitis Plan: Avoid trigger foods such as citrus, tomato products, soda, caffeine, spicy foods and other foods that may be irritating to your stomach. Avoid laying flat 3-4 hours after eating and elevate the head of the bed 30 degrees to prevent acid from moving into the esophagus. (3) Hypercholesterolemia: Code(s): E78.00 - Pure hypercholesterolemia, unspecified Category: Medical Plan: Avoid foods that are high in cholesterol such as red meat, fried foods, eggs and baked goods. Triglyceride goal of less than 100 and LDL goal of less than 150. (4) Right shoulder pain: Code(s): M25.511 - Pain in right shoulder Category: Medical Plan: Seen and evaluated by Orthopedics on Sunday and was given a cortisone injection. Patient requesting patches to help with the pain and prescription was sent today. Plan This note was constructed using voice recognition software. While every effort has been made to ensure accuracy and fast food team member, still areas may have been included sometimes these areas may affect the content or meeting of the given symptoms. Total time spent caring for the patient today was 30 minutes. This includes time spent before the visit reviewing the chart, time spent during the visit, and time spent after the visit and documentation. Orders: Orders Influenza [id number] Immunization Today Z23 - Encounter for immunization Medications: New capsaicin 0.025% (Salonpas-Hot) do not leave patch on for more than 8 hrs 1 patch topical BID PRN 15 ea 0RF pain
[2024-06-20 09:38] VITALS: BP 122/82
== END 2024-06-20 09:46 | disposition home or self-care (01) ==
PROVIDERS: PCP Internal Medicine
DX: R04.0 Epistaxis (principal); K21.9 Gastro-esophageal reflux disease without esophagitis; E78.00 Pure hypercholesterolemia, unspecified; M25.511 Pain in right shoulder; Z23 Encounter for immunization

== ENCOUNTER → 2024-06-20 09:11 | Outpatient (BNVA) | payer OTHER, SELFPAY | PROVIDERS: PCP Internal Medicine | DX: R04.0 Epistaxis (principal); K21.9 Gastro-esophageal reflux disease without esophagitis; E78.00 Pure hypercholesterolemia, unspecified; M25.511 Pain in right shoulder; Z23 Encounter for immunization | CPT/HCPCS: 90471; 90656; 99212 ==

== ENCOUNTER 2024-08-15 13:55 | Outpatient (AMB) | payer OTHER, SELFPAY ==
--- NOTE | 2024-08-15 14:13 | MHC.OFFVIS ---
Vital Signs 08/15/24 14:14 Height 5 ft 2 in Weight 170 lb 13.732 oz BMI 31.2 BP 122/72 Blood Pressure Location Lt brachial Position Sitting Pulse 62 Pulse Source Pulse Oximeter Pulse Oximetry (%) 98 Oxygen Delivery Method Room Air Intake Visit Reasons: Asthma Cone Winder Required: No Allergies alendronate sodium Adverse Reaction (Intermediate, Verified 08/15/24 14:18) Upset stomach SEASONAL ALLERGIES Allergy (Intermediate, Uncoded 08/15/24 14:18) SNEEZING, runny nose HPI Comments Details: The patient is a 79-year-old woman with a known history of asthma previously followed at [facility] by pulmonology. 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 Currently she has been having some increasing dyspnea symptoms. She also has chest tightness. She does use her rescue inhaler usually on a daily basis. She does get relief when she uses it. We did review her previous data including a CBC with an elevated eosinophil count suggesting eosinophilic asthma. In addition to that the patient did have a CT scan done back in 2016 at [facility]. It demonstrated some peribronchial thickening suggesting some degree of bronchitis and atelectasis. Apparently she did have a more recent CT scan of the chest done. Will request a copy of that study as well. The patient does complaint of nasal congestion and postnasal drip In addition to her ongoing respiratory symptoms. The patient has not had any recent pulmonary function studies and will go ahead and order blood work including allergy testing as far as her respiratory therapy she will continue on current regimen. 01/26/2022 the patient is here for a pulmonary follow-up visit. The patient has been doing well. She continues with current respiratory therapy. She has not had to use her rescue inhaler that often. She is using her allergy medicine. 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 Seems to be responding well to the Wixela. In meantime she is having issues with her knees. Having significant knee swelling. She did go to the ER because of significant joint effusion. The effusion was drained which was found to have significant arthritis. She is going to start gel shots soon with hopes that it would be beneficial in that knee surgery. I did talk to her about her pulmonary function studies. Although she does have a moderate obstruction her symptoms are stable and she is able to proceed with general anesthesia at this time. Hopefully the gel shots work and she can postpone surgery for now. 09/12/2022 the patient is here for a pulmonary follow-up visit. The patient overall is doing well from a respiratory status. the patient does have intermittent cough. Typically nonproductive in nature. [id number] severity. Also has episodes of chest tightness and wheezing. Typically less than once a week. She continues use he works selling with good effect. She also has been using her allergy medicine. She has not had any exacerbations. She has not required any prednisone which is reassuring. The patient continues to walk with arthritis. I did review her last pulmonary function studies again demonstrating moderate COPD. In addition to that the patient has not had a chest x-ray recently. Go ahead and have her get an x-ray today. Otherwise patient will continue with current regimen will follow-up in 8 months to a year. 05/15/2023 the patient is here for a pulmonary follow-up visit. The patient overall is doing well. She recently was exposed to the cold ranging she states that she got congested after that. She is feeling a little better now. She continues use the Wixela. She has not required any prednisone which is reassuring. We did review her last chest x-ray demonstrating some degree of increased cardiac size. The patient has not had any cardiac imaging. She is doing well she denies any significant shortness of breath leg swelling. Otherwise she will benefit from an echocardiogram. She also has a torturous aorta on her x-ray. On examination the patient does have some diminished breath sounds with prolonged expiratory phase. I do believe that she will benefit from the addition of a long-acting muscarinic antagonist. Therefore will switch over to Trelegy inhaler. If the patient worsens she can always call it in order to send her additional medicines to the pharmacy. Will follow-up in 6 months. If the patient develops any worsening symptoms prior to this visit she is to call the office. Consider cardiac evaluation specially with increased cardiac size. 12/03/2023 the patient is here for a pulmonary follow-up visit. Overall the patient has been doing well. She did have an issue with significant epistaxis just in the beginning of November. She did get blood work done which is reassuring. She also had an EKG done with nonspecific changes. Unchanged from previous. The patient primarily was bleeding from her right nostril. Then after that is stopped and she went on a cruise. While she was in a cruise she did develop some chest tightness and wheezing and cough. She felt like she had a respiratory illness. After taking her medications she did feel better and she was subsequently able to continue the cruise without any difficulties. Now back the patient is doing well. Denies any significant chest tightness or wheezing. We again talked about her x-ray showing increased cardiac size. Will go and request an echocardiogram in view of her abnormal chest x-ray to adjust further address the increased cardiac size. The patient is responding well to Trelegy inhaler. She will continue for now she also uses rescue inhaler. I did look at her nasal passages she does have some slight ulceration to the septum on the right side where she was having some bleeding. Has a little bit of bleeding right now. She is going to use a water-based lubricant to the area to minimize irritation. 08/15/2024 the patient is here for a pulmonary follow-up visit. The patient well from a respiratory status. She continue use the Wixela inhaler. She has not required her rescue inhaler. The patient did have an echocardiogram and we did review together. Seems like her cardiac size is normal unlike what her x-ray shows. Does have some slight diastolic dysfunction. Otherwise normal. No recent imaging studies to review. Will follow-up in a year's time. If the patient develops any worsening symptoms she will call for an earlier assessment. Have her get an x-ray during her next follow-up. [facility] Medical History Diverticulosis Tubular adenoma Left knee pain Cardiomegaly Glaucoma Asthma Allergy Hypercholesterolemia Osteoporosis Vitamin D deficiency Anxiety GERD (gastroesophageal reflux disease) Insomnia Allergic rhinitis Surgical History History of colonoscopy with polypectomy (~04/11/24) Hx of colonoscopy History of shoulder surgery History of tubal ligation Family History Father Cancer Mother Diabetes Myocardial infarction Sister No problems noted. Daughter No problems noted. Son No problems noted. Son No problems noted. Son No problems noted. Social History (Reviewed 08/15/24 @ 14:21 by NICHOL Kitchen Housing: House Are you a primary healthcare social worker to a significant other at home: No Do you presently have visiting nurse or other home services: No Alcohol intake: current Alcohol intake frequency: holidays/special occasions only Patient Tobacco Use Status: Never used Tobacco e-Cigarette/Vaping Use: Never Used Second Hand Smoke Exposure: No Advance Directives Date on File: 10/11/21 service: No Current occupational status: retired Cognitive needs: No Hearing needs: No Vision needs: Yes Review of Systems Const Denies poor appetite and Denies weakness Eyes Denies no additional complaints ENT Reports Normal hearing present, Denies dizziness, Reports epistaxis, Denies nasal congestion, Denies tinnitus and Denies sore throat Card Denies chest pain, Denies syncope, Denies rapid heart rate, Denies dyspnea and Denies dyspnea on exertion Resp Reports cough, Denies dyspnea, Denies dyspnea on exertion and Denies wheezing GI Denies change in stool character, Reports constipation, Denies diarrhea, Denies nausea and Denies vomiting Denies urinary frequency, Denies difficulty voiding and Denies dysuria Musc Reports arthralgias, Reports joint swelling and Reports limited range of motion Neuro Reports Normal hearing present, Denies dizziness, Denies syncope and Denies weakness Aller/Immun Denies wheezing Physical Exam Vital Signs: Last Vital Signs Pulse 62 08/15/24 14:14 BP 122/72 08/15/24 14:14 Pulse Ox 98 08/15/24 14:14 Oxygen Delivery Method Room Air 08/15/24 14:14 BMI result Body Mass Index 31.2 Const General: alert HEENT General nose exam: Abnormal nasal septum present other (erythematous with minimal bleeding) Neck Neck: Yes normal visual inspection, Yes full ROM and Yes no lymphadenopathy Chest Chest palpation & inspection: normal inspection of the chest Resp Effort & Inspection: normal respiratory effort Auscultation: clear to auscultation bilaterally Cardio Rate: regular rate Rhythm: regular rhythm Heart sounds: S1 normal heart sound present and S2 normal heart sound present GI Palpation (GI): Soft to palpation and nontender Auscultation: normal bowel sounds Skin General skin exam: rashes and/or lesions noted Neuro Cranial nerves: Yes Normal hearing present Results Reviewed Results Reviewed: [address] [address] Cardiology Report Signed Patient: Mildred Monaco MR#: [id number] : 1945 Acct:[id number] Age/Sex: 78 / F ADM Date: 04/08/24 [facility]: Renan Delgado MD Ordering Physician: Renan Delgado MD Date of Service: 04/08/24 Procedure(s): CA echo transthoracic complete Accession Number(s): cc: Renan Delgado MD~ Transthoracic Echocardiogram Patient (Last, First, Middle): Mildred Monaco, Gender: Female Date of : 1945 Age: 78 Procedure Date: 04/08/2024 Procedure Type: Transthoracic Echocardiogram Location: OP Height: 157.48 cm Weight: 76.2 kg BSA: 1.77 m2 Heart Rate: 51 bpm BP: 122 / 80 mmHg Cosmetology Professor: DILCIA Referring MD: Renan Delgado MD Financial Compliance Examiner: Nikunj Moreno MD Symptoms: I27.20 - Pulmonary hypertension, unspecified Study Quality: Fair ECG Rhythm: Bradycardia Conclusions: - 1. Normal LV ejection fraction of 65-70% with impaired relaxation filling pattern 2. Mildly dilated left atrium 3. Cardiac valvular Doppler is within normal limits 4. Normal RV systolic pressure 5. Upper limits of normal ascending aortic size 6. No pericardial effusion Findings Left Ventricle Normal left ventricular size, thickness, and systolic function. The visually estimated ejection fraction is between 65-70%. Spectral Doppler is indicative of an impaired relaxation filling pattern. E/E prime ratio is between 8 and 15 consistent with indeterminate filling pressures. Right Ventricle Normal right ventricular cavity size and systolic function. Atria The left atrium is mildly dilated. There is no evidence of interatrial shunt. The right atrium is normal in size. Aortic Valve Normal aortic valve structure and function. There is no aortic valve stenosis. There is no aortic valve regurgitation. Mitral Valve Normal mitral valve structure and function. There is trace mitral valve regurgitation. There is no mitral valve stenosis. Pulmonic Valve The pulmonic valve is likely normal. There is trace pulmonic valve regurgitation. Tricuspid Valve Normal tricuspid valve structure. There is trace tricuspid valve regurgitation. The right ventricular systolic pressure is normal. The right ventricular systolic pressure is 16 mmHg. Normal right atrial pressure. There is no evidence of pulmonary hypertension. Great Vessels All visible segments of the aorta are normal in size. The pulmonary artery was not well visualized. There is no evidence of plaque in the aorta. Venous The inferior vena cava is normal in size and collapses greater than 50% with inspiration. Pericardium/Pleural There is no evidence of pericardial effusion. Prior Study Comparison No prior study available for comparison. Measurements 2D Linear Measurements IVSd: 0.94 0.6-0.9/0.6-1.0 cm LVIDd: 5.54 3.9-5.3/4.2-5.9 cm LVIDd Index: 3.13 2.4-3.2/2.2-3.1 cm/m2 LVIDs: 3.60 2.0-3.6 cm LVPWd: 0.79 0.7-1.1 cm LA Diam: 3.90 2.7-3.8/3.0-4.0 cm LAIDs Index: 2.20 1.5-2.3 cm/m2 LV Mass: 222.61 67-162/88-224 g LV Mass Index: 125.77 43-95/49-115 g/m2 LVOT Diam: 1.90 3.0+(-)1.3 cm 2D Systolic Function EF 4C: 55.80 >55% EF 2C: 64.20 >55% EF BiP: 61.90 >55% Mitral Valve MV Pk E: 0.64 MV PK A: 0.84 MV Decel Time: 267.00 E/A: 0.80 E'Lateral: 6.96 E'Medial: 5.55 E/E' Med: 11.60 E/E' Lat: 9.20 PHT: 78.00 MVA PHT: 2.82 Decel Toole: 2.40 Aortic Valve AoV Pk Sky: 1.25 AoV Mn Sky: 0.86 AoV VTI: 0.28 AoV Pk Grad: 6.00 Aov Mn Grad: 3.00 LUBNA Cont.VTI: 2.56 LVOT LVOT Pk Sky: 1.08 LVOT Mn Sky: 0.70 LVOT VTI: 0.25 LVOT Pk Grad: 5.00 LVOT Mn Grad: 2.00 LVOT Diam: 1.90 LVOT Area: 2.84 Diastolic Function MV Pk E: 0.64 MV Pk A: 0.84 E/A: 0.80 E'Medial: 5.55 E/E' Med: 11.60 E' Laterial: 6.96 E/E' Lat: 9.20 Right Ventricle TAPSE (mm): 19.10 TVS' Sky: 11.10 Tricuspid Valve TR Pk Sky: 1.83 TR Pk Grad: 13.00 RA Press: 3.00 RVSP: 16.00 Great Vessels Aorta Sinus of Valsalva: 3.00 2.0-3.5 cm Ao Asc: 3.50 2.1-3.4 cm Pulmonary Valve PV Pk Sky: 0.88 Peak PV Grad: 3.00 Updated in Other Vendor System with Status of Final Nikunj Moreno MD electronically signed on 04/08/2024 2:46:27 PM with status of Final Dictated By: Nikunj Moreno MD Signed By: <Electronically signed by Nikunj Moreno MD in OV> 04/08/24 1446 DD/ 1114 TD/TT: Marble Cleaner: Assessment & Plan Assessment & Plan (1) Allergy: Code(s): T78.40XA - Allergy, unspecified, initial encounter Category: Medical Qualifiers: Encounter type: initial encounter Qualified Code(s): T78.40XA - Allergy, unspecified, initial encounter (2) Asthma: Code(s): J45.909 - Unspecified asthma, uncomplicated Category: Medical Qualifiers: Asthma complication type: uncomplicated Asthma persistence: persistent Asthma severity: moderate Qualified Code(s): J45.40 - Moderate persistent asthma, uncomplicated (3) Cardiomegaly: Code(s): I51.7 - Cardiomegaly Category: Medical Plan stopped Trelegy 200 daily continue Wixella continue Singulair continue antihistamine therapy short-acting beta agonist as needed CXR saline gel to nose follow-up in 6 months Orders: Orders XR chest 2V 08/15/24 J45.40 - Moderate persistent asthma, uncomplicated Medications: Refilled fluticasone propion-salmeterol 250-50 mcg/dose (Wixela Inhub) 1 ea inhalation BID 60 caps 12RF albuterol sulfate 90 mcg/actuation 2 inhalations inhalation Q6H PRN 18 grams 5RF shortness of breath or wheezing 30 days J44.9 - Chronic obstructive pulmonary disease, unspecified Coding Level of Care Code Est Pt Level 4 (85660) Diagnoses Allergy, initial encounter T78.40XA Encounter type: initial encounter Moderate persistent asthma without complication J45.40 Asthma complication type: uncomplicated Asthma persistence: persistent Asthma severity: moderate Cardiomegaly I51.7 Time Spent (min) 16
[2024-08-15 14:14] VITALS: BP 122/72; PULSE 62; O2SAT 98; BMI 31.2
== END 2024-08-15 14:33 | disposition home or self-care (01) ==
PROVIDERS: PCP Internal Medicine; Visit Provider Hospitalist
DX: T78.40XA Allergy, unspecified, initial encounter (principal); J45.40 Moderate persistent asthma, uncomplicated; I51.7 Cardiomegaly
CPT/HCPCS: 99214

== ENCOUNTER → 2024-08-15 13:55 | Outpatient (BNVA) | payer OTHER, SELFPAY | PROVIDERS: PCP Internal Medicine; Visit Provider Hospitalist | DX: J45.40 Moderate persistent asthma, uncomplicated (principal); I51.7 Cardiomegaly; T78.40XA Allergy, unspecified, initial encounter | CPT/HCPCS: 99212 ==

== ENCOUNTER 2024-08-28 08:52 | Outpatient (AMB) | payer OTHER, SELFPAY ==
--- NOTE | 2024-08-28 09:03 | A.OFFPC_ITS ---
Vital Signs 08/28/24 09:04 Height 5 ft 2 in Weight 170 lb BMI 31.1 BP 132/72 Blood Pressure Location Lt brachial Position Sitting Pulse 63 Pulse Source Pulse Oximeter Pulse Oximetry (%) 96 Oxygen Delivery Method Room Air Intake Visit Reasons: Asthma Allergies alendronate sodium Adverse Reaction (Intermediate, Verified 08/15/24 14:18) Upset stomach SEASONAL ALLERGIES Allergy (Intermediate, Uncoded 08/15/24 14:18) SNEEZING, runny nose Tobacco use date assessed: 11/14/23 Dental Screening Dental Screen Date: 11/14/23 HPI Asthma HPI Details The patient is a 79-year-old female presenting with asthma management issues and a review of current medications. She has been prescribed Wixella as a maintenance inhaler, taken twice daily, with appropriate rinsing of the mouth. Albuterol is used as a rescue inhaler probably once a week, not on a daily basis. Her asthma appears controlled with this regimen. Her last complete blood work was conducted in November, and the patient will undergo a fasting blood test within three months to monitor glucose levels, as her previous test revealed an elevated glucose level of 100 mg/dL. The patient also has a history of hypertension and is currently taking Meloxicam for osteoarthritis, which she reports causes occasional shoulder pain. She ensures taking Meloxicam with food to mitigate gastrointestinal disturbances and is prescribed omeprazole for stomach protection. The patient's lipid profile has improved under simvastatin, with her low-density lipoprotein (LDL) cholesterol reduced from 137 mg/dL to 100 mg/dL. Numerous preventative measures are up to date, including mammogram, bone density tests, colon cancer screening, and vaccinations for tetanus, shingles, pneumonia, and influenza. She mentions adherence to maintaining her physical activity and dietary habits to manage cardiovascular health. [facility] Medical History Diverticulosis Tubular adenoma Left knee pain Cardiomegaly Glaucoma Asthma Allergy Hypercholesterolemia Osteoporosis Vitamin D deficiency Anxiety GERD (gastroesophageal reflux disease) Insomnia Allergic rhinitis Surgical History History of colonoscopy with polypectomy (~04/11/24) Hx of colonoscopy History of shoulder surgery History of tubal ligation Family History Father Cancer Mother Diabetes Myocardial infarction Sister No problems noted. Daughter No problems noted. Son No problems noted. Son No problems noted. Son No problems noted. Social History Housing: House Are you a primary animal care taker to a significant other at home: No Do you presently have visiting nurse or other home services: No Alcohol intake: current Alcohol intake frequency: holidays/special occasions only Patient Tobacco Use Status: Never used Tobacco e-Cigarette/Vaping Use: Never Used Second Hand Smoke Exposure: No Advance Directives Date on File: 10/11/21 service: No Current occupational status: retired Cognitive needs: No Hearing needs: No Vision needs: Yes Questionnaire PHQ-9 Over the last 2 weeks, how often have you been bothered by any of the following problems? 1. Little interest or pleasure in doing things: not at all 2. Feeling down, depressed, or hopeless: not at all 3. Trouble falling or staying asleep, or sleeping too much: not at all 4. Feeling tired or having little energy: not at all 5. Poor appetite or overeating: not at all 6. Feeling bad about yourself - or that you are a failure or have let yourself or your family down: not at all 7. Trouble concentrating on things, such as reading the newspaper or watching television: not at all 8. Moving or speaking so slowly that other people could have noticed. Or the opposite - being so fidgety or restless that you have been moving around a lot more than usual: not at all 9. Thoughts that you would be better off or of hurting yourself in some way: not at all Total score: 0 Depression Screening Interpretation: Negative Depression Screening Done: Yes Source: Developed by Drs. Serafin Jason, Stacy Acosta, Maynor Blackmon and colleagues, with an educational tj from [employer]. Thrive Questionnaire Date Thrive assessed: 11/14/23 RACHNA-7 AMB Questionnaire RACHNA-7 Date RACHNA - 7 assessed: 08/28/24 Feeling nervous, anxious, or on edge: 0 = Not at all Not being able to stop or control worryin = Not at all Worrying too much about different things: 0 = Not at all Trouble relaxin = Not at all Being so restless that it is hard to sit still: 0 = Not at all Becoming easily annoyed or irritable: 0 = Not at all Feeling afraid as if something awful might happen: 0 = Not at all Total RACHNA-7 score (0-4 normal; 5-9 mild; 10-14 moderate; 15-21 severe): 0 Source: Developed by Drs. Serafin Jason, Stacy Acosta, Maynor Blackmon and colleagues, with an educational tj from [employer]. Physical exam (Primary Care) Vital Signs: Last Vital Signs Pulse 63 08/28/24 09:04 BP 132/72 08/28/24 09:04 Pulse Ox 96 08/28/24 09:04 Oxygen Delivery Method Room Air 08/28/24 09:04 BMI result Body Mass Index 31.1 Tobacco/Smoking Status: Tobacco use Status Tobacco use date assessed 11/14/23 08/28/24 09:09 Patient Tobacco Use Status Never used Tobacco 08/28/24 09:09 Tobacco use type 02/14/23 14:57 e-Cigarette/Vaping Use Never Used 08/28/24 09:09 PHQ-9: PHQ-9 Score PHQ-9: Total score 0 08/28/24 09:09 Depression Screening Interpretation: Negative Thrive Assessment: Date of Thrive Assessment Date Thrive assessed 11/14/23 08/28/24 09:09 Const General: alert; No acute distress Eyes Conjunctivae: conjunctivae normal Resp Auscultation: clear to auscultation bilaterally Cardio Rate: regular rate Rhythm: regular rhythm GI Inspection: Yes normal to inspection Extrem General: Yes normal to inspection and No edema Office Procedures Flu Questionnaire Does the patient have a severe egg allergy?: No Immunizations Fluarix Triv [id number] (PF) 45 mcg (15 mcg x 3)/0.5 mL IM syringe Performing Provider: Manuel Oviedo MD [facility] [place] [facility] Documented (not given) by: SHILO Escobedo on 08/28/24 09:10 Reason Not Given: Received Previously Coding Level of Care Code Est Pt Level 4 (63938) Complex EM visit Add On G2211 Diagnoses Moderate persistent asthma without complication J45.40 Asthma severity: moderate Asthma persistence: persistent Asthma complication type: uncomplicated Hypercholesterolemia E78.00 Gastroesophageal reflux disease without esophagitis K21.9 Esophagitis presence: without esophagitis Generalized anxiety disorder F41.1 Assessment & Plan Assessment & Plan (1) Asthma: Code(s): J45.909 - Unspecified asthma, uncomplicated Category: Medical Qualifiers: Asthma severity: moderate Asthma persistence: persistent Asthma complication type: uncomplicated Qualified Code(s): J45.40 - Moderate persistent asthma, uncomplicated (2) Hypercholesterolemia: Code(s): E78.00 - Pure hypercholesterolemia, unspecified Category: Medical (3) GERD (gastroesophageal reflux disease): Code(s): K21.9 - Gastro-esophageal reflux disease without esophagitis Category: Medical Qualifiers: Esophagitis presence: without esophagitis Qualified Code(s): K21.9 - Gastro-esophageal reflux disease without esophagitis (4) Generalized anxiety disorder: Code(s): F41.1 - Generalized anxiety disorder Category: Medical Plan - Asthma: Continue current regimen of Wixela inhaler twice daily and use Albuterol only as needed. Ensure mouth rinsing post-inhalation. - Hypertension: Maintain regular monitoring of blood pressure and continue lifestyle interventions and medication adherence. - Osteoarthritis: Continue Meloxicam with food and omeprazole for gastrointestinal protection. - Hyperlipidemia: Continue 40 mg simvastatin and reassess at future appointment. Consider dose adjustment if lipid levels remain well controlled. - Diabetes Screening: Conduct fasting blood test in three months to monitor glucose levels. - Preventative Care: Maintain up-to-date status on mammograms, bone density tests, colon screening, and vaccinations. Engage in regular physical activity. - Lifestyle: Encourage walking, healthy eating, and adequate hydration to support cardiovascular health. Orders: Orders Influenza [id number] Immunization Today Z23 - Encounter for immunization
[2024-08-28 09:04] VITALS: BP 132/72; PULSE 63; O2SAT 96; BMI 31.1
== END 2024-08-28 10:08 | disposition home or self-care (01) ==
PROVIDERS: PCP Internal Medicine; Visit Provider Internal Medicine
DX: J45.40 Moderate persistent asthma, uncomplicated (principal); E78.00 Pure hypercholesterolemia, unspecified; K21.9 Gastro-esophageal reflux disease without esophagitis; F41.1 Generalized anxiety disorder; Z23 Encounter for immunization

== ENCOUNTER → 2024-08-28 08:52 | Outpatient (BNVA) | payer OTHER, SELFPAY | PROVIDERS: PCP Internal Medicine; Visit Provider Internal Medicine | DX: I10 Essential (primary) hypertension (principal); J45.40 Moderate persistent asthma, uncomplicated; E78.00 Pure hypercholesterolemia, unspecified; K21.9 Gastro-esophageal reflux disease without esophagitis; F41.1 Generalized anxiety disorder | CPT/HCPCS: 90471; 96127; 99212 ==

== ENCOUNTER 2024-10-06 07:50 | Outpatient (REF) | payer OTHER, SELFPAY | END 2024-10-06 07:51 | disposition home or self-care (01) | LOC: HO.MAMMO 07:50 | PROVIDERS: PCP Internal Medicine; Visit Provider Internal Medicine | DX: Z12.31 Encounter for screening mammogram for malignant neoplasm of breast (principal) | CPT/HCPCS: 77063; 77067 ==

== ENCOUNTER → 2024-10-06 08:15 | Outpatient (BNV) | payer OTHER, SELFPAY | PROVIDERS: PCP Internal Medicine; Visit Provider Internal Medicine | DX: Z12.31 Encounter for screening mammogram for malignant neoplasm of breast (principal) | CPT/HCPCS: 77063; 77067 ==

== ENCOUNTER 2024-11-28 09:55 | Outpatient (AMB) | payer OTHER, SELFPAY ==
[2024-11-28 11:11] VITALS: BP 126/82; PULSE 80; TEMP 36.5; O2SAT 97; BMI 30.8
--- NOTE | 2024-11-28 11:11 | MHC.PC.OV ---
Vital Signs 11/28/24 11:11 Height 5 ft 2 in Weight 168 lb 8 oz BMI 30.8 BP 126/82 Blood Pressure Location Lt brachial Position Sitting Pulse 80 Pulse Source Pulse Oximeter Temp 97.7 F Temp Source Temporal Artery Scan Pulse Oximetry (%) 97 Oxygen Delivery Method Room Air Intake Visit Reasons: Asthma Brush Cutter Required: No Accompanied by: Self / Same As Patient Allergies alendronate sodium Adverse Reaction (Intermediate, Verified 11/28/24 11:16) Upset stomach SEASONAL ALLERGIES Allergy (Intermediate, Uncoded 11/28/24 11:16) SNEEZING, runny nose Medication List - Last Reconciled 11/28/24 by Manuel Oviedo MD albuterol sulfate 2.5 mg (3 mL) inhalation Q4H PRN 30 days albuterol sulfate 90 mcg/actuation 2 inhalations inhalation Q6H PRN 30 days cetirizine 10 mg PO DAILY cholecalciferol (vitamin D3) 25 mcg PO DAILY 90 days cyanocobalamin (vitamin B-12) 1,000 mcg PO DAILY diclofenac sodium 1% 4 grams topical QID PRN fluticasone propion-salmeterol 250-50 mcg/dose (Wixela Inhub) 1 ea inhalation BID fluticasone propionate 50 mcg/actuation 2 sprays intranasal DAILY PRN latanoprost 0.005% 1 drp ophthalmic (eye) BEDTIME meloxicam 1 tab PO DAILY PRN montelukast 10 mg PO DAILY 90 days nebulizers As directed omeprazole 20 mg PO DAILY risedronate (Actonel) 35 mg PO MO simvastatin 40 mg PO QPM [skinny light Pads size 3 As directed] sodium chloride 0.65% (Saline Nasal) 2 sprays intranasal QID PRN tramadol 50 mg PO Q6H PRN [Weighing scale As directed] [wipes. As directed] Tobacco use date assessed: 11/28/24 Fall risk assessment: No Falls in past year Last assessed Fall Risk: 11/28/24 Dental Screening Dental Screen Date: 11/14/23 HPI Asthma HPI Details R shoulder pain will see ortho soon PFSH Medical History Diverticulosis Tubular adenoma Left knee pain Cardiomegaly Glaucoma Asthma Allergy Hypercholesterolemia Osteoporosis Vitamin D deficiency Anxiety GERD (gastroesophageal reflux disease) Insomnia Allergic rhinitis Surgical History History of colonoscopy with polypectomy (~04/11/24) Hx of colonoscopy History of shoulder surgery History of tubal ligation Family History Father Cancer Mother Diabetes Myocardial infarction Sister No problems noted. Daughter No problems noted. Son No problems noted. Son No problems noted. Son No problems noted. Social History Housing: House Are you a primary insurance healthcare consultant to a significant other at home: No Do you presently have visiting nurse or other home services: No Alcohol intake: current Alcohol intake frequency: holidays/special occasions only Patient Tobacco Use Status: Never used Tobacco e-Cigarette/Vaping Use: Never Used Second Hand Smoke Exposure: No Advance Directives Date on File: 10/11/21 service: No Current occupational status: retired Cognitive needs: No Hearing needs: No Vision needs: Yes Questionnaire PHQ-9 Over the last 2 weeks, how often have you been bothered by any of the following problems? 1. Little interest or pleasure in doing things: not at all 2. Feeling down, depressed, or hopeless: not at all 3. Trouble falling or staying asleep, or sleeping too much: not at all 4. Feeling tired or having little energy: not at all 5. Poor appetite or overeating: not at all 6. Feeling bad about yourself - or that you are a failure or have let yourself or your family down: not at all 7. Trouble concentrating on things, such as reading the newspaper or watching television: not at all 8. Moving or speaking so slowly that other people could have noticed. Or the opposite - being so fidgety or restless that you have been moving around a lot more than usual: not at all 9. Thoughts that you would be better off or of hurting yourself in some way: not at all Total score: 0 Depression Screening Interpretation: Negative Depression Screening Done: Yes 26003 - PHQ-9 Billing: Yes Source: Developed by Drs. Serafin Jason, Stacy Acosta, Maynor Blackmon and colleagues, with an educational tj from [employer]. Thrive Questionnaire Date Thrive assessed: 11/28/24 I am a: Patient What is your living situation today?: I have a steady place to live Within the past 12 months, did the food you bought not last and you didn't have the money to get more?: Never true Within the past 12 months, did you worry whether your food would run out before you got money to buy more?: Never true Do you have trouble paying for medicines?: No Do you have trouble getting transportation to medical appointments?: No Do you have trouble paying your heating and electricity bill?: No Do you have trouble taking care of your child, family member or friend?: No Do you have trouble with day-to-day activities such as bathing, preparing meals, shopping, managing finances, etc.?: No Are you currently unemployed and looking for a job?: No Are you interested in more education?: No Please select the resources that you would like help with: None Currently or been in a relationship where the following occur: No concerns reported THRIVE Score: 0 AUDIT C Alcohol Use Questionnaire (AUDIT-C) 1. How often do you have a drink containing alcohol?: Monthly or less 2. How many drinks containing alcohol do you have on a typical day when you are drinking?: 1 or 2 3. How often do you have six or more drinks on one occasion?: Never Total Score: 1 RACHNA-7 AMB Questionnaire RACHNA-7 Date RACHNA - 7 assessed: 11/28/24 Feeling nervous, anxious, or on edge: 0 = Not at all Not being able to stop or control worryin = Not at all Worrying too much about different things: 0 = Not at all Trouble relaxin = Not at all Being so restless that it is hard to sit still: 0 = Not at all Becoming easily annoyed or irritable: 0 = Not at all Feeling afraid as if something awful might happen: 0 = Not at all Total RACHNA-7 score (0-4 normal; 5-9 mild; 10-14 moderate; 15-21 severe): 0 Source: Developed by Drs. Serafin Jason, Stacy Acosta, Maynor Blackmon and colleagues, with an educational tj from [employer]. RACHNA-7 Assessment Billing RACHNA-7 Assessment Tool: RACHNA-7 Assessment 72338 Physical exam (Primary Care) Vital Signs: Last Vital Signs Temp 97.7 F 11/28/24 11:11 Pulse 80 11/28/24 11:11 BP 126/82 11/28/24 11:11 Pulse Ox 97 11/28/24 11:11 Oxygen Delivery Method Room Air 11/28/24 11:11 BMI result Body Mass Index 30.8 Tobacco/Smoking Status: Tobacco use Status Tobacco use date assessed 11/28/24 11/28/24 11:17 Patient Tobacco Use Status Never used Tobacco 11/28/24 11:17 Tobacco use type 02/14/23 14:57 e-Cigarette/Vaping Use Never Used 11/28/24 11:17 PHQ-9: PHQ-9 Score PHQ-9: Total score 0 11/28/24 11:40 Depression Screening Interpretation: Negative Thrive Assessment: Date of Thrive Assessment Date Thrive assessed 11/28/24 11/28/24 11:17 Currently or been in a relationship where the following occur: No concerns reported Const General: alert; No acute distress Eyes Conjunctivae: conjunctivae normal Resp Auscultation: clear to auscultation bilaterally Cardio Rate: regular rate Rhythm: regular rhythm GI Inspection: Yes normal to inspection Extrem General: Yes normal to inspection and No edema Coding Level of Care Code Est Pt Level 4 (14935) Complex EM visit Add On G2211 Diagnoses Impaired fasting blood sugar R73.01 Moderate persistent asthma without complication J45.40 Asthma complication type: uncomplicated Asthma persistence: persistent Asthma severity: moderate Gastroesophageal reflux disease without esophagitis K21.9 Esophagitis presence: without esophagitis Hypercholesterolemia E78.00 Generalized anxiety disorder F41.1 Epistaxis R04.0 Additional Codes RACHNA-7 Assessment Billing - RACHNA-7 Assessment Tool: RACHNA-7 Assessment 49199 ([id number]) PHQ-9 - 91803 - PHQ-9 Billing: Yes ([id number]) Assessment & Plan Assessment & Plan (1) Impaired fasting blood sugar: Code(s): R73.01 - Impaired fasting glucose Category: Medical Plan: Decrease the amount of carbohydrate intake, pasta, bread, rice and potatoes are all sugar and that is aside from all the sweet stuff, remember that fruits are good but they are Sweet also. Patient is advised to get blood work done (2) Asthma: Code(s): J45.909 - Unspecified asthma, uncomplicated Category: Medical Qualifiers: Asthma complication type: uncomplicated Asthma persistence: persistent Asthma severity: moderate Qualified Code(s): J45.40 - Moderate persistent asthma, uncomplicated Plan: Patient on Wixela, albuterol allergy medication montelukast (3) GERD (gastroesophageal reflux disease): Code(s): K21.9 - Gastro-esophageal reflux disease without esophagitis Category: Medical Qualifiers: Esophagitis presence: without esophagitis Qualified Code(s): K21.9 - Gastro-esophageal reflux disease without esophagitis Plan: Avoid the foods that causes that usually spicy foods, tomato products, juices, coffee, soda and foods that your sensitive to. After eating do not lie down, allow 3-4 hours before in lie down. And keep the head of bed above 30 degrees to avoid the acid from going up. (4) Hypercholesterolemia: Code(s): E78.00 - Pure hypercholesterolemia, unspecified Category: Medical Plan: Avoid fried foods, chicken skin, eggs, butter margarine, pastries and meat. Be it pork or beef they have a lot of cholesterol on simvastatin 40 mg once a day LDL goal of less than 130 and triglyceride of less than 150 patient needs blood work (5) Generalized anxiety disorder: Code(s): F41.1 - Generalized anxiety disorder Category: Medical Plan: Continue with present medication. (6) Epistaxis: Code(s): R04.0 - Epistaxis Category: Medical Plan History of Present Illness The patient is a 79-year-old female presenting with concerns regarding multiple chronic medical conditions and recent episodes of epistaxis. She has a documented history of GERD, hypercholesterolemia, and osteoporosis, for which she is currently on appropriate medication regimens. She also manages asthma using a well-monitored treatment plan involving Wexela and montelukast. The patient notes recent nosebleeds that occurred despite prior cauterization treatment, suggesting dryness as a contributing factor. Management has included using saline nasal spray to alleviate dryness, which appears to aid in reducing the frequency of bleeding episodes. The patient describes elevated blood sugar levels observed in routine blood tests, and she is being monitored for impaired glucose tolerance. Her recent labs have indicated low vitamin D levels. Of note, the patient experiences joint and muscle stiffness, possibly linked to arthritis, for which she occasionally uses meloxicam. Her recent healthcare updates verify that her mammogram and bone density tests are current, and her understanding is that further colonoscopy is not required following a normal procedure in 2023. Health Maintenance - Mammogram up to date. - Bone density scan up to date. - Recent colonoscopy done in 2023 with no further required. - Vaccination discussion: RSV vaccine considered; not specifically required but available. - Recommendation of saline nasal spray for nasal dryness to prevent epistaxis. - Continued monitoring and management of hypercholesterolemia under simvastatin therapy. - Needs follow-up blood work for monitoring vitamin D levels and glucose tolerance. Social History - No detailed social determinants discussed during the conversation. Review of Systems - Ears, Nose, Throat: Reports recent nosebleeds, prior cauterization for recurrent epistaxis. - Musculoskeletal: Reports joint stiffness and pain, especially in the shoulder. - Endocrine: Reports impaired glucose tolerance. - Respiratory: Reports asthma managed by medication, with breathing described as good. - General: Reports no significant recent weight gain or loss, noted some weight loss previously. Physical Exam - General- Blood pressure appears stable. - Musculoskeletal- Encouraged physical therapy evaluation but opted to wait for orthopedic consultation. - Respiratory- Confirmed continued medication adherence for asthma. Results - Labs: Elevated blood sugar noted (100), low vitamin D level. - Blood count, electrolytes, renal function, and liver function tests were normal. - LDL cholesterol level at 55. Plan I advised the patient to continue on her prescribed medications for hypercholesterolemia and asthma, with a follow-up for potential elevated blood glucose levels as indicated by recent labs. I emphasized the importance of using saline nasal spray to manage nasal dryness and mitigate epistaxis, and to consider ENT evaluation if it continues to persist. Meloxicam may be taken for pain management, but caution is advised due to its blood-thinning potential. Comprehensive health maintenance was discussed, reviewing her mammogram, bone density scans, and colonoscopy results, which are currently satisfactory. A discussion about the optional RSV vaccine was also held. Patient was informed and verbally consented to the use of an ambient scribe for clinic note documentation during this visit. Discussion Notes During the visit, I discussed the overall management of the patient's chronic conditions, emphasizing the importance of monitoring her blood glucose levels and managing asthma and hypercholesterolemia. We reviewed her latest lab results, specifically her elevated blood glucose and low vitamin D levels. I advised on the continued use of saline nasal spray for recurrent epistaxis potentially related to dry conditions and reiterated the need for further evaluation if symptoms persist. I explained the risks and benefits associated with meloxicam usage, particularly its blood-thinning side effect, and advised the patient to take it with food. We reviewed her medication plan for osteoporosis, GERD, and asthma, ensuring that she adheres to recommended dosages. Regarding health maintenance, I confirmed that her mammogram and bone density scan are recent and satisfactory, not necessitating follow-up at this time. We discussed the option of an RSV vaccine, noting it is not mandatory but beneficial in certain cases. Patient Instructions - Continue taking your current medications, including simvastatin and asthma medications. - Use saline nasal spray regularly to manage nasal dryness and reduce the risk of nosebleeds. - Follow up with blood work to monitor blood sugar levels and vitamin D deficiency. - If nosebleeds persist, consider consulting an ENT specialist. - Take meloxicam with food as needed for joint pain, but be cautious of its blood-thinning effects. - Continue with health maintenance practices, including regular monitoring of your conditions. - Consider the RSV vaccine, though it's not required, as discussed. Orders: Orders Hemoglobin A1c Today Manuel Oviedo MD R73.01 - Impaired fasting glucose Comprehensive Met. Panel Today Manuel Oviedo MD R73.01 - Impaired fasting glucose Lipid Panel Today Manuel Oviedo MD E78.00 - Pure hypercholesterolemia, unspecified, R73.01 - Impaired fasting glucose Thyroid Stimulating Hormone Today Manuel Oviedo MD R73.01 - Impaired fasting glucose Free T4 (Free Thyroxine) Today Manuel Oviedo MD R73.01 - Impaired fasting glucose Vitamin B12 and Folate Today Manuel Oviedo MD R73.01 - Impaired fasting glucose Vitamin D 25-OH Total Today Manuel Oviedo MD R73.01 - Impaired fasting glucose Complete Blood Count Auto Diff Today Manuel Oviedo MD R73.01 - Impaired fasting glucose Medications: New sodium chloride 0.65% (Saline Nasal) 2 sprays intranasal QID PRN 44 mL 3RF dry nasal passages Manuel Oviedo MD R04.0 - Epistaxis Changed From cetirizine 10 mg PO DAILY 90 tabs 3RF R04.0 - Epistaxis To cetirizine 10 mg PO DAILY R04.0 - Epistaxis Renan Delgado MD From meloxicam 1 tab PO DAILY PRN pain To meloxicam 15 mg PO DAILY PRN 30 tabs 0RF pain Lorenver O Po, MD
== END 2024-11-28 11:52 | disposition home or self-care (01) ==
LOC: HO.HMCH 09:55
PROVIDERS: PCP Internal Medicine; Visit Provider Internal Medicine
DX: R73.01 Impaired fasting glucose (principal); J45.40 Moderate persistent asthma, uncomplicated; K21.9 Gastro-esophageal reflux disease without esophagitis; E78.00 Pure hypercholesterolemia, unspecified; F41.1 Generalized anxiety disorder; R04.0 Epistaxis

== ENCOUNTER → 2024-11-28 09:55 | Outpatient (BNVA) | payer OTHER, SELFPAY | PROVIDERS: PCP Internal Medicine; Visit Provider Internal Medicine | DX: R73.01 Impaired fasting glucose (principal); J45.40 Moderate persistent asthma, uncomplicated; K21.9 Gastro-esophageal reflux disease without esophagitis; E78.00 Pure hypercholesterolemia, unspecified; F41.1 Generalized anxiety disorder; R04.0 Epistaxis | CPT/HCPCS: 96127; 99212 ==

== ENCOUNTER 2024-11-29 08:46 | Outpatient (REF) | payer OTHER, SELFPAY ==
[2024-11-29 09:22] LABS: MANUAL DIFF FLAG NO
[2024-11-29 09:37] LABS: Basophils Percent Auto 0.5 % (0-2); Eosinophils Absolute Auto 0.3 X10*3/uL (0.0-0.4); Eosinophils Percent Auto 4.1 % (0-4); Hematocrit 42.5 % (37.0-47.0); Hemoglobin 13.7 g/dl (12.0-16.0); Imm Gran Abs Auto 0.02 X10*3/uL (0.00-0.03); Imm Gran Pct Auto 0.3 % (0.0-0.4); Lymphocytes Absolute Auto 1.2 X10*3/uL (1.2-4.9); Lymphocytes Percent Auto 18.8 % (20-40); Mean Corpuscular HGB Conc 32.2 g/dl (31.0-35.0); Mean Corpuscular Hemoglobin 29.7 pg (27.0-33.0); Mean Corpuscular Volume 92.2 fL (80.0-98.0); Mean Platelet Volume 12.3 fL (9.4-12.3); Monocytes Absolute Auto 0.5 X10*3/uL (0.1-1.2); Monocytes Percent Auto 7.6 % (2-11); Neutrophils Absolute Auto 4.5 x10*3/uL (2.0-8.3); Neutrophils Percent Auto 68.7 % (45-73); Red Blood Count 4.61 X10*6/uL (4.20-5.50); White Blood Count 6.6 X10*3/uL (4.8-10.8)
[2024-11-29 09:57] LABS: Platelet Count 130 X10*3/uL (160-400)
[2024-11-29 10:14] LABS: Estimated Average Glucose 114 mg/dL; Hemoglobin A1c % 5.6 % (<6.0); Total Hemoglobin (HGBA1C) 3600.5667 umol/L
[2024-11-29 10:38] LABS: Alanine Aminotransferase 17 U/L (0-31); Anion Gap 9 (12-20); Aspartate Amino Transferase 18 U/L (5-31); Bilirubin Total 0.7 mg/dL (0.0-1.0); Blood Urea Nitrogen 12 mg/dL (9-16); Calcium 9.5 mg/dL (8.4-10.2); Carbon Dioxide 29 mmol/L (22-29); Chloride 108 mmol/L (96-108); Cholesterol 198 mg/dL (<200); Estimated Glomerular Filt Rate > 60; Free T4 (Free Thyroxine) 0.95 ng/dL (0.71-1.85); Glucose Random 102 mg/dL (60-115); HDL Cholesterol 68 mg/dL (>40); LDL Cholesterol Calculated 115 mg/dL (<100); Potassium 4.2 mmol/L (3.3-5.1); Sodium 142 mmol/L (135-145); Thyroid Stimulating Hormone 1.14 uIU/mL (0.32-4.0); Total Protein 6.9 g/dL (6.5-8.0); Triglycerides 78 mg/dL (<150); Vitamin D 25-OH Total 17.4 ng/mL (>30)
[2024-11-29 10:52] LABS: Alkaline Phosphatase 81 U/L (39-117); Folate 12.4 ng/mL (> or = 4.0); Vitamin B12 216 pg/mL (200-900)
== END 2024-11-29 08:47 | disposition home or self-care (01) ==
LOC: HO.LAB 08:46
PROVIDERS: PCP Internal Medicine; Visit Provider Internal Medicine
DX: R73.01 Impaired fasting glucose (principal); E78.00 Pure hypercholesterolemia, unspecified
CPT/HCPCS: 36415; 80053; 80061; 82306; 82607; 82746; 83036; 84439; 84443; 85025

== ENCOUNTER 2025-04-08 16:27 | Outpatient (AMB) | payer MEDICARE, SELFPAY ==
[2025-04-08 16:32] VITALS: BP 98/62; PULSE 61; RESP 18; TEMP 36.2; O2SAT 97; BMI 30.6
--- NOTE | 2025-04-08 16:32 | A.OFFPC_ITS ---
Vital Signs 04/08/25 16:32 Height 5 ft 2 in Weight 167 lb 4 oz BMI 30.6 BP 98/62 Blood Pressure Location Lt brachial Position Sitting Respiration 18 Pulse 61 Pulse Source Pulse Oximeter Temp 97.1 F Temp Source Temporal Artery Scan Pulse Oximetry (%) 97 Oxygen Delivery Method Room Air Intake Visit Reasons: Dr. Hernandez's 04/14 shoulder surgery Kennel Aide Required: No Accompanied by: Daughter Allergies alendronate sodium Adverse Reaction (Intermediate, Verified 04/08/25 23:16) Upset stomach SEASONAL ALLERGIES Allergy (Intermediate, Uncoded 04/08/25 23:16) SNEEZING, runny nose Medication List - Last Reconciled 04/08/25 by JASPER Jasmine albuterol sulfate 2.5 mg (3 mL) inhalation Q4H PRN 30 days albuterol sulfate 90 mcg/actuation 2 inhalations inhalation Q6H PRN 30 days cetirizine 10 mg PO DAILY cholecalciferol (vitamin D3) 25 mcg PO DAILY 90 days cyanocobalamin (vitamin B-12) 1,000 mcg PO DAILY diclofenac sodium 1% 4 grams topical QID PRN fluticasone propion-salmeterol 250-50 mcg/dose (Wixela Inhub) 1 ea inhalation BID fluticasone propionate 50 mcg/actuation 2 sprays intranasal DAILY PRN latanoprost 0.005% 1 drp ophthalmic (eye) BEDTIME meloxicam 15 mg PO DAILY PRN montelukast 10 mg PO DAILY 90 days nebulizers As directed omeprazole 20 mg PO DAILY risedronate (Actonel) 35 mg PO MO simvastatin 40 mg PO QPM [skinny light Pads size 3 As directed] sodium chloride 0.65% (Saline Nasal) 2 sprays intranasal QID PRN tramadol 50 mg PO Q6H PRN [Weighing scale As directed] [wipes. As directed] Tobacco use date assessed: 04/08/25 Last assessed Fall Risk: 04/08/25 Dental Screening Dental Screen Date: 04/08/25 Did you have a dental visit in the last 12 months?: Yes Did you have a dental problem in the last 6 months where you did not have access to dental care?: No Was dental information given to patient?: Patient has dentist HPI Dr. Hernandez's 8/12 shoulder surgery HPI Details Patient is a 73-year-old female, patient of Dr. Oviedo, last seen in office on 11/28/2024 Patient is presenting with need for preoperative evaluation for right revision total shoulder arthroplasty. Patient reports history of right shoulder surgery in 2003, and the pain recently recurred, prompting the need for another surgical intervention. 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 Date: 04/14/2025 Surgeon/location: Dr. Hernandez at [facility] Orth[facility] Anesthesia: General. Patient reports history of surgery using general anesthesia without any issues. The patient denies any post surgery hypothermia or clotting disorder and she isn't on any blood thinner. The patient takes meloxicam as needed for pain. Instructed the patient that this medication has to be stopped 3 days prior to surgery. Patient reports that she has not taken this medication for a while and we will not start back on the medication until after surgery. Medical history significant for asthma, allergy, osteoarthritis, GERD, osteoporosis, anxiety. Patient denies chest pain, shortness of breath, heart palpitation and dizziness [facility] Medical History Diverticulosis Tubular adenoma Left knee pain Cardiomegaly Glaucoma Asthma Allergy Hypercholesterolemia Osteoporosis Vitamin D deficiency Anxiety GERD (gastroesophageal reflux disease) Insomnia Allergic rhinitis Surgical History History of colonoscopy with polypectomy (~04/11/24) Hx of colonoscopy History of shoulder surgery History of tubal ligation Family History Father Cancer Mother Diabetes Myocardial infarction Sister No problems noted. Daughter No problems noted. Son No problems noted. Son No problems noted. Son No problems noted. Social History Housing: House Are you a primary care transitions nurse to a significant other at home: No Do you presently have visiting nurse or other home services: No Alcohol intake: current Alcohol intake frequency: holidays/special occasions only Patient Tobacco Use Status: Never used Tobacco e-Cigarette/Vaping Use: Never Used Second Hand Smoke Exposure: No Advance Directives Date on File: 02/08/22 service: No Current occupational status: retired Cognitive needs: No Hearing needs: No Vision needs: Yes Questionnaire PHQ-9 Over the last 2 weeks, how often have you been bothered by any of the following problems? 1. Little interest or pleasure in doing things: not at all 2. Feeling down, depressed, or hopeless: not at all 3. Trouble falling or staying asleep, or sleeping too much: not at all 4. Feeling tired or having little energy: not at all 5. Poor appetite or overeating: not at all 6. Feeling bad about yourself - or that you are a failure or have let yourself or your family down: not at all 7. Trouble concentrating on things, such as reading the newspaper or watching television: not at all 8. Moving or speaking so slowly that other people could have noticed. Or the opposite - being so fidgety or restless that you have been moving around a lot more than usual: not at all 9. Thoughts that you would be better off or of hurting yourself in some wa y: not at all Total score: 0 Depression Screening Interpretation: Negative Depression Screening Done: Yes Source: Developed by Drs. Serafin Jason, Stacy Acosta, Maynor Blackmon and colleagues, with an educational tj from [employer]. Thrive Questionnaire Date Thrive assessed: 04/08/25 I am a: Patient What is your living situation today?: I have a steady place to live Within the past 12 months, did the food you bought not last and you didn't have the money to get more?: Never true Within the past 12 months, did you worry whether your food would run out before you got money to buy more?: Never true Do you have trouble paying for medicines?: No Do you have trouble getting transportation to medical appointments?: No Do you have trouble paying your heating and electricity bill?: No Do you have trouble taking care of your child, family member or friend?: No Do you have trouble with day-to-day activities such as bathing, preparing meals, shopping, managing finances, etc.?: No Are you currently unemployed and looking for a job?: No Are you interested in more education?: No Please select the resources that you would like help with: None Currently or been in a relationship where the following occur: No concerns reported THRIVE Score: 0 AUDIT C Alcohol Use Questionnaire (AUDIT-C) 1. How often do you have a drink containing alcohol?: Monthly or less 2. How many drinks containing alcohol do you have on a typical day when you are drinking?: 1 or 2 3. How often do you have six or more drinks on one occasion?: Never Total Score: 1 RACHNA-7 AMB Questionnaire RACHNA-7 Date RACHNA - 7 assessed: 04/08/25 Feeling nervous, anxious, or on edge: 0 = Not at all Not being able to stop or control worryin = Not at all Worrying too much about different things: 0 = Not at all Trouble relaxin = Not at all Being so restless that it is hard to sit still: 0 = Not at all Becoming easily annoyed or irritable: 0 = Not at all Feeling afraid as if something awful might happen: 0 = Not at all Total RACHNA-7 score (0-4 normal; 5-9 mild; 10-14 moderate; 15-21 severe): 0 Source: Developed by Drs. Serafin Jason, Stacy Acosta, Maynor Blackmon and colleagues, with an educational tj from [employer]. Review of Systems Const Denies headache(s) Eyes Denies loss of vision ENT Denies vertigo, Denies dizziness, Denies headache(s), Reports nasal congestion (Intermittent) and Denies sore throat Card Denies chest pain, Denies leg edema and Denies lightheadedness Resp Denies cough, Denies hemoptysis and Denies wheezing GI Denies abdominal pain, Denies melena, Denies constipation, Reports heartburn (Depending on what she eats), Denies diarrhea and Denies vomiting Denies urinary frequency, Denies dysuria and Denies urinary urgency Musc Reports arthralgias (Right shoulder pain), Denies joint swelling, Denies numbness and Denies tingling Neuro Denies Abnormal speech present, Denies behavioral changes, Denies vertigo, Denies dizziness, Denies headache(s), Denies loss of vision, Denies memory loss, Denies numbness and Denies tingling Psych Denies anxiety, Denies behavioral changes, Denies depression, Denies memory loss and Denies panic attacks Adam/Lymph Denies easy bleeding and Denies easy bruising Aller/Immun Denies wheezing Physical exam (Primary Care) Vital Signs: Last Vital Signs Temp 97.1 F 04/08/25 16:32 Pulse 61 04/08/25 16:32 Resp 18 04/08/25 16:32 BP 98/62 04/08/25 16:32 Pulse Ox 97 04/08/25 16:32 Oxygen Delivery Method Room Air 04/08/25 16:32 BMI result Body Mass Index 30.6 Tobacco/Smoking Status: Tobacco use Status Tobacco use date assessed 04/08/25 04/08/25 16:44 Patient Tobacco Use Status Never used Tobacco 04/08/25 16:44 Tobacco use type 02/14/23 14:57 e-Cigarette/Vaping Use Never Used 04/08/25 16:44 PHQ-9: PHQ-9 Score PHQ-9: Total score 0 04/08/25 17:24 Depression Screening Interpretation: Negative Thrive Assessment: Date of Thrive Assessment Date Thrive assessed 04/08/25 04/08/25 16:44 Currently or been in a relationship where the following occur: No concerns reported Const General: healthy appearing, no acute distress, alert and awake Nutritional Appearance: well nourished Orientation/consciousness: oriented to person, oriented to place and oriented to time HENMT Ears: TM's normal bilaterally General nose exam: Normal nasal mucous membranes and turbinates present Eyes Conjunctivae: conjunctivae normal Sclerae: sclerae normal Pupils: Equal, round and reactive pupils present Neck Neck: Yes no lymphadenopathy and Yes no JVD Thyroid: Thyroid normal Carotids: no bruits Resp Effort & Inspection: normal respiratory effort and not tachypneic Auscultation: no crackles, no rales, no rhonchi and no wheezes Cardio Rate: regular rate Rhythm: regular rhythm Heart sounds: no murmurs and normal S1 and S2 GI Palpation (GI): Soft to palpation, nontender, no hepatomegaly and no splenomegaly Auscultation: normal bowel sounds General: Yes no CVA tenderness Back/Spine/Pelvis Back: no CVA tenderness Skin General skin exam: no rashes or lesions noted and dry skin Neuro General: oriented to person, oriented to place and oriented to time Cranial nerves: Yes Equal, round and reactive pupils present Speech: No Abnormal speech present Gait exam (Neuro): Normal gait present Motor exam (neuro): no tremor noted Extrem Right upper extremity: full ROM and shoulder/upper arm Details: tenderness and abnormal ROM Details: pain with active ROM Left upper extremity: full ROM Right lower extremity: full ROM; no edema Left lower extremity: full ROM; no edema Psych Mental Status: mental status grossly normal Speech and movement: Normal speech and movement present Affect: normal affect Attitude: cooperative Thought process: Normal thought process present Coding Level of Care Code Est Pt Level 4 (30397) Diagnoses Preoperative clearance Z01.818 Chronic right shoulder pain M25.511; G89.29 Chronicity: chronic Gastroesophageal reflux disease without esophagitis K21.9 Esophagitis presence: without esophagitis Impaired fasting blood sugar R73.01 Blood pressure elevated without history of HTN R03.0 Cardiomegaly I51.7 Allergy, initial encounter T78.40XA Encounter type: initial encounter Moderate persistent asthma without complication J45.40 Asthma severity: moderate Asthma persistence: persistent Asthma complication type: uncomplicated Age-related osteoporosis without current pathological fracture M81.0 Osteoporosis type: age-related Presence of current pathological fracture: without current pathological fracture Time Spent (min) 39 Assessment & Plan Assessment & Plan (1) Preoperative clearance: Code(s): Z01.818 - Encounter for other preprocedural examination Category: Medical Plan: Regarding preop clearance, the patient is at acceptable risk for proposed surgery upon completing ordered labs and EKG that are within reasonable standings. Reviewed with the patient that no surgery is completely free of risk and that this examination is to assist the surgeon in reviewing informed consent. (2) Right shoulder pain: Code(s): M25.511 - Pain in right shoulder Category: Medical Qualifiers: Chronicity: chronic Qualified Code(s): M25.511 - Pain in right shoulder; G89.29 - Other chronic pain Plan: History of right shoulder surgery. Recurrent pain prompted reassessment and was ruled to be needing a revisit total shoulder arthroplasty. (3) GERD (gastroesophageal reflux disease): Code(s): K21.9 - Gastro-esophageal reflux disease without esophagitis Category: Medical Qualifiers: Esophagitis presence: without esophagitis Qualified Code(s): K21.9 - Gastro-esophageal reflux disease without esophagitis Plan: Do not eat meals or drink carbonated beverages within 3 hr of bedtime Decrease the amount of fried, fatty, and spicy foods to decrease gastric acid production Raise the head of the bed using 4 to 6-inch blocks, especially if nocturnal symptoms are present Lose weight if indicated; avoid tight-fitting clothing, especially around the waist Avoid foods that relax the Lower esophageal sphincter (chocolate, peppermint, high-fat foods etc.,) Continue omeprazole 20 mg daily (4) Impaired fasting blood sugar: Code(s): R73.01 - Impaired fasting glucose Category: Medical Plan: Most recent labs done on 11/29/2024 fasting glucose 102, A1c 5.6%. An A1c ordered to re-evaluate. Encouraged low sugar/carbohydrate diet (5) Blood pressure elevated without history of HTN: Code(s): R03.0 - Elevated blood-pressure reading, without diagnosis of hypertension Category: Medical Plan: Blood pressure 98/62 Reinforced low-salt diet and adequate fluids hydration (6) Cardiomegaly: Code(s): I51.7 - Cardiomegaly Category: Medical Plan: The patient had a transthoracic echocardiogram on 04/08/2024. That showed normal left ventricle size, thickness, and systolic function. Visually estimated ejection fraction is 65-70%. Right ventricle normal cavity size and systolic function. Left atrium is mildly dilated. There is no evidence of intra-atrial shunt. Aortic valve has no regurgitation. The patient denies chest pain. She appears clinically stable from a cardiac standpoint. An EKG was order to further evaluate the patient for upcoming surgical procedure. (7) Allergy: Code(s): T78.40XA - Allergy, unspecified, initial encounter Category: Medical Qualifiers: Encounter type: initial encounter Qualified Code(s): T78.40XA - Allergy, unspecified, initial encounter Plan: History of allergy managed with Zyrtec 10 mg daily and montelukast 10 mg daily, and fluticasone propionate 50 mcg/actuation 2 sprays intranasally p.r.n. (8) Asthma: Code(s): J45.909 - Unspecified asthma, uncomplicated Category: Medical Qualifiers: Asthma severity: moderate Asthma persistence: persistent Asthma complication type: uncomplicated Qualified Code(s): J45.40 - Moderate persistent asthma, uncomplicated Plan: Lifestyle modifications like smoking cessation. Wear a mask when around irritants, fumes, or particulate matter (e.g., painting, lawn mowing). Increase humidification at home, especially in the winter. Annual flu shots and the pneumonia shot can mitigate exacerbation. Increase fluids if not contraindicated because of heart failure. Continue albuterol sulfate 90 mcg/actuation 2 inhalation q.6 p.r.n., or albuterol sulfate 2.5 mg via neb tx q.4 H p.r.n., Wixela inhaler 1 inh BID, montelukast 10 mg daily (9) Osteoporosis: Comment: Bone density done August Code(s): M81.0 - Age-related osteoporosis without current pathological fracture Category: Medical Qualifiers: Osteoporosis type: age-related Presence of current pathological fracture: without current pathological fracture Qualified Code(s): M81.0 - Age- related osteoporosis without current pathological fracture Plan: BMD done on 03/07/24 showed osteoporosis based on the lowest T-score value of -3.6 in the lumbar spine region. This is a 17.2% decrease from previous, 31.9% decrease from baseline. Continue Actonel 25 mg q.month Orders: Orders Complete Blood Count Auto Diff 04/08/25 Z01.818 - Encounter for other preprocedural examination Comprehensive Met. Panel 04/08/25 Z01.818 - Encounter for other preprocedural examination TSH reflex Free T4 04/08/25 Z01.818 - Encounter for other preprocedural examination UA CC w/rflx Micro + Cult 04/08/25 Z01.818 - Encounter for other preprocedural examination Hemoglobin A1c 04/08/25 Z01.818 - Encounter for other preprocedural examination Prothrombin Time INR 04/08/25 Z01.818 - Encounter for other preprocedural examination ECG 12 lead EKG 04/08/25 Z01.818 - Encounter for other preprocedural examination
--- OUTSIDE RECORDS SUMMARY | 2025-04-08 16:35 | XMS_ITS | Encounter Summary ---
Author Organization Formerly [facility] Address [address] [place] [address] Care Team Providers Care Director Of Consumer Affairs Name Role Phone Manuel Oviedo MD Primary Care Provider Unavailabl e Encounter Details Date Type Department Care Team Description 12/27/2017 Transfer Records Medical Records [address] [place] [id number] Abstract, Provider Social History Tobacco Use Types Packs/Day Years Used Date Smoking Tobacco: Never Alcohol Use Standard Drinks/Week Comments Yes 0 (1 standard drink = 0.6 oz pur e alcohol) Sex Assigned at Date Recorded Not on file documented as of this encounter Plan of Treatment Not on file documented as of this encounter Visit Diagnoses Not on filedocumented in this encounter Care Teams Director Of Consumer Affairs Relationship Specialty Start Date End Date Manuel Oviedo MD PCP - General Internal Medicine 07/04/17 documented as of this encounter
== END 2025-04-08 17:26 | disposition home or self-care (01) ==
LOC: HO.HMCH 16:27
PROVIDERS: PCP Internal Medicine
DX: Z01.818 Encounter for other preprocedural examination (principal); M25.511 Pain in right shoulder; G89.29 Other chronic pain; K21.9 Gastro-esophageal reflux disease without esophagitis; R73.01 Impaired fasting glucose; R03.0 Elevated blood-pressure reading, without diagnosis of hypertension; I51.7 Cardiomegaly; T78.40XA Allergy, unspecified, initial encounter; J45.40 Moderate persistent asthma, uncomplicated; M81.0 Age-related osteoporosis without current pathological fracture

== ENCOUNTER → 2025-04-08 16:27 | Outpatient (BNVA) | payer MEDICARE, SELFPAY | PROVIDERS: PCP Internal Medicine | DX: Z01.818 Encounter for other preprocedural examination (principal); M25.511 Pain in right shoulder; G89.29 Other chronic pain; K21.9 Gastro-esophageal reflux disease without esophagitis; R73.01 Impaired fasting glucose; R03.0 Elevated blood-pressure reading, without diagnosis of hypertension; I51.7 Cardiomegaly; J45.40 Moderate persistent asthma, uncomplicated; M81.0 Age-related osteoporosis without current pathological fracture; Z91.09 Other allergy status, other than to drugs and biological substances | CPT/HCPCS: 96127; 99212 ==

== ENCOUNTER → 2025-04-09 08:04 | Outpatient (REF) | payer MEDICARE, SELFPAY ==
--- OUTSIDE RECORDS SUMMARY | 2025-04-09 08:08 | XMS_ITS | Encounter Summary ---
Author Organization [facility] Address [address] [place] [address] Care Team Providers Care Screw Remover Name Role Phone Manuel Oviedo MD Primary Care Provider Unavailabl e Encounter Details Date Type Department Care Team Description 12/27/2017 Transfer Records Medical Records [address] [place] [id number] Abstract, Provider Social History Tobacco Use Types [...] on filedocumented in this encounter Care Teams Screw Remover Relationship Specialty Start Date End Date Manuel Oviedo MD PCP - General Internal Medicine 07/04/17 documented as of this encounter
--- NOTE | 2025-04-09 08:13 | ECG_ITS ---
Test Reason : pre op Blood Pressure : */* mmHG Vent. Rate : 57 BPM Atrial Rate : 57 BPM P-R Int : 134 ms QRS Dur : 92 ms QT Int : 448 ms P-R-T Axes : 55 -32 70 degrees QTcB Int : 436 ms Sinus bradycardia with marked sinus arrhythmia Left axis deviation Nonspecific ST and T wave abnormality Abnormal ECG When compared with ECG of 15-Nov-2023 08:19, No significant change was found Referred By: Yinka Hough Electronically Signed By: SIERRA PANG
[2025-04-09 08:39] LABS: Hematocrit 40.3 % (37.0-47.0); Hemoglobin 13.2 g/dl (12.0-16.0); Imm Gran Abs Auto 0.01 X10*3/uL (0.00-0.03); Imm Gran Pct Auto 0.2 % (0.0-0.4); Lymphocytes Absolute Auto 1.4 X10*3/uL (1.2-4.9); Mean Corpuscular HGB Conc 32.8 g/dl (31.0-35.0); Mean Corpuscular Hemoglobin 29.6 pg (27.0-33.0); Mean Corpuscular Volume 90.4 fL (80.0-98.0); NRBC Abs Auto 0.000 X10*3/uL (0.0-0.012); NRBC Pct Auto 0.0 /100WBC (0.0-0.2); Platelet Count 96 X10*3/uL (160-400); Red Blood Count 4.46 X10*6/uL (4.20-5.50); White Blood Count 4.8 X10*3/uL (4.8-10.8)
[2025-04-09 08:40] LABS: MANUAL DIFF FLAG SCAN
[2025-04-09 08:44] LABS: INTERNATIONAL NORM RATIO 0.9 (0.9-1.1); Prothrombin Time 10.5 SEC (10.9-12.4)
[2025-04-09 08:49] LABS: Hemoglobin A1C 133.0216 umol/L; Total Hemoglobin (HGBA1C) 3590.2255 umol/L
[2025-04-09 09:09] LABS: Alanine Aminotransferase 26 U/L (0-31); Albumin Level 4.2 g/dL (3.5-5.0); Alkaline Phosphatase 76 U/L (39-117); Anion Gap 7 (12-20); Aspartate Amino Transferase 23 U/L (5-31); Blood Urea Nitrogen 12 mg/dL (9-16); Calcium 9.4 mg/dL (8.4-10.2); Carbon Dioxide 32 mmol/L (22-29); Chloride 109 mmol/L (96-108); Estimated Glomerular Filt Rate > 60; Potassium 4.1 mmol/L (3.3-5.1); Sodium 144 mmol/L (135-145); Total Protein 6.8 g/dL (6.5-8.0)
[2025-04-09 09:58] LABS: Appearance Urine Clear; Glucose Urine UA Negative (Negative); PH 5.5 (5.0-9.0); Specific Gravity - Urine 1.020 (1.005-1.025); UMIC TRIGGER UACC YES
[2025-04-09 10:03] LABS: UACC Culture Trigger YES
== END ==
LOC: HO.CARD 08:04
PROVIDERS: PCP Internal Medicine
DX: Z01.818 Encounter for other preprocedural examination (principal); Z13.29 Encounter for screening for other suspected endocrine disorder
CPT/HCPCS: 36415; 80053; 81001; 83036; 84443; 85025; 85610; 87086; 93005

== ENCOUNTER → 2025-04-09 08:13 | Outpatient (BNV) | payer MEDICARE, SELFPAY | PROVIDERS: PCP Internal Medicine; Visit Provider Internal Medicine | DX: R00.1 Bradycardia, unspecified (principal) | CPT/HCPCS: 93010 ==

== ENCOUNTER 2025-06-18 09:27 | Outpatient (AMB) | payer MEDICARE, SELFPAY ==
--- NOTE | 2025-06-18 09:28 | MHC.OFFVIS ---
Vital Signs 06/18/25 09:29 Height 5 ft 2 in Weight 168 lb 10.458 oz BMI 30.8 BP 132/74 Blood Pressure Location Lt brachial Position Sitting Pulse 82 Pulse Source Pulse Oximeter Pulse Oximetry (%) 98 Oxygen Delivery Method Room Air Intake Visit Reasons: Obstructive sleep apnea Accompanied by: Self / Same As Patient Allergies alendronate sodium Adverse Reaction (Intermediate, Verified 06/18/25 09:32) Upset stomach SEASONAL ALLERGIES Allergy (Intermediate, Uncoded 04/08/25 23:16) SNEEZING, runny nose HPI Comments Details: The patient is a 80-year-old woman with a known history of asthma previously followed at [facility] by pulmonology. 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 Currently she has been having some increasing dyspnea symptoms. She also has chest tightness. She does use her rescue inhaler usually on a daily basis. She does get relief when she uses it. We did review her previous data including a CBC with an elevated eosinophil count suggesting eosinophilic asthma. In addition to that the patient did have a CT scan done back in 2017 at [facility]. It demonstrated some peribronchial thickening suggesting some degree of bronchitis and atelectasis. Apparently she did have a more recent CT scan of the chest done. Will request a copy of that study as well. The patient does complaint of nasal congestion and postnasal drip In addition to her ongoing respiratory symptoms. The patient has not had any recent pulmonary function studies and will go ahead and order blood work including allergy testing as far as her respiratory therapy she will continue on current regimen. 01/26/2022 the patient is here for a pulmonary follow-up visit. The patient has been doing well. She continues with current respiratory therapy. She has not had to use her rescue inhaler that often. She is using her allergy medicine. 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 Seems to be responding well to the Wixela. In meantime she is having issues with her knees. Having significant knee swelling. She did go to the ER because of significant joint effusion. The effusion was drained which was found to have significant arthritis. She is going to start gel shots soon with hopes that it would be beneficial in that knee surgery. I did talk to her about her pulmonary function studies. Although she does have a moderate obstruction her symptoms are stable and she is able to proceed with general anesthesia at this time. Hopefully the gel shots work and she can postpone surgery for now. 09/12/2022 the patient is here for a pulmonary follow-up visit. The patient overall is doing well from a respiratory status. the patient does have intermittent cough. Typically nonproductive in nature. [id number] severity. Also has episodes of chest tightness and wheezing. Typically less than once a week. She continues use he works selling with good effect. She also has been using her allergy medicine. She has not had any exacerbations. She has not required any prednisone which is reassuring. The patient continues to walk with arthritis. I did review her last pulmonary function studies again demonstrating moderate COPD. In addition to that the patient has not had a chest x-ray recently. Go ahead and have her get an x-ray today. Otherwise patient will continue with current regimen will follow-up in 8 months to a year. 05/15/2023 the patient is here for a pulmonary follow-up visit. The patient overall is doing well. She recently was exposed to the cold ranging she states that she got congested after that. She is feeling a little better now. She continues use the Wixela. She has not required any prednisone which is reassuring. We did review her last chest x-ray demonstrating some degree of increased cardiac size. The patient has not had any cardiac imaging. She is doing well she denies any significant shortness of breath leg swelling. Otherwise she will benefit from an echocardiogram. She also has a torturous aorta on her x-ray. On examination the patient does have some diminished breath sounds with prolonged expiratory phase. I do believe that she will benefit from the addition of a long-acting muscarinic antagonist. Therefore will switch over to Trelegy inhaler. If the patient worsens she can always call it in order to send her additional medicines to the pharmacy. Will follow-up in 6 months. If the patient develops any worsening symptoms prior to this visit she is to call the office. Consider cardiac evaluation specially with increased cardiac size. 12/03/2023 the patient is here for a pulmonary follow-up visit. Overall the patient has been doing well. She did have an issue with significant epistaxis just in the beginning of November. She did get blood work done which is reassuring. She also had an EKG done with nonspecific changes. Unchanged from previous. The patient primarily was bleeding from her right nostril. Then after that is stopped and she went on a cruise. While she was in a cruise she did develop some chest tightness and wheezing and cough. She felt like she had a respiratory illness. After taking her medications she did feel better and she was subsequently able to continue the cruise without any difficulties. Now back the patient is doing well. Denies any significant chest tightness or wheezing. We again talked about her x-ray showing increased cardiac size. Will go and request an echocardiogram in view of her abnormal chest x-ray to adjust further address the increased cardiac size. The patient is responding well to Trelegy inhaler. She will continue for now she also uses rescue inhaler. I did look at her nasal passages she does have some slight ulceration to the septum on the right side where she was having some bleeding. Has a little bit of bleeding right now. She is going to use a water-based lubricant to the area to minimize irritation. 06/18/2025 the patient is here for a pulmonary follow-up visit. The patient well from a respiratory status. She continue use the Wixela inhaler. She has not required her rescue inhaler. The patient did have an echocardiogram and we did review together. Seems like her cardiac size is normal unlike what her x-ray shows. Does have some slight diastolic dysfunction. Otherwise normal. No recent imaging studies to review. Will follow-up in a year's time. If the patient develops any worsening symptoms she will call for an earlier assessment. Have her get an x-ray during her next follow-up. In the meantime, having insomnia, moderate inseverity. Does not take any OTC medicines. [facility] Medical History Diverticulosis Tubular adenoma Left knee pain Cardiomegaly Glaucoma Asthma Allergy Hypercholesterolemia Osteoporosis Vitamin D deficiency Anxiety GERD (gastroesophageal reflux disease) Insomnia Allergic rhinitis Surgical History History of colonoscopy with polypectomy (~04/11/24) Hx of colonoscopy History of shoulder surgery History of tubal ligation Family History Father Cancer Mother Diabetes Myocardial infarction Sister No problems noted. Daughter No problems noted. Son No problems noted. Son No problems noted. Son No problems noted. Social History Housing: House Are you a primary critical care nurse to a significant other at home: No Do you presently have visiting nurse or other home services: No Alcohol intake: current Alcohol intake frequency: holidays/special occasions only Patient Tobacco Use Status: Never used Tobacco e-Cigarette/Vaping Use: Never Used Second Hand Smoke Exposure: No Advance Directives Date on File: 10/11/21 service: No Current occupational status: retired Cognitive needs: No Hearing needs: No Vision needs: Yes Review of Systems Const Reports difficulty sleeping, Denies poor appetite and Denies weakness Eyes Denies no additional complaints ENT Reports Normal hearing present, Denies dizziness, Reports epistaxis, Denies nasal congestion, Denies tinnitus and Denies sore throat Card Denies chest pain, Denies syncope, Denies rapid heart rate, Denies dyspnea and Denies dyspnea on exertion Resp Reports cough, Denies dyspnea, Denies dyspnea on exertion and Denies wheezing GI Denies change in stool character, Reports constipation, Denies diarrhea, Denies nausea and Denies vomiting Denies urinary frequency, Denies difficulty voiding and Denies dysuria Musc Reports arthralgias, Reports joint swelling and Reports limited range of motion Neuro Reports Normal hearing present, Denies dizziness, Denies syncope and Denies weakness Aller/Immun Denies wheezing Physical Exam Vital Signs: Last Vital Signs Pulse 82 06/18/25 09:29 BP 132/74 06/18/25 09:29 Pulse Ox 98 06/18/25 09:29 Oxygen Delivery Method Room Air 06/18/25 09:29 BMI result Body Mass Index 30.8 Const General: alert HEENT General nose exam: Abnormal nasal septum present other (erythematous with minimal bleeding) Neck Neck: Yes normal visual inspection, Yes full ROM and Yes no lymphadenopathy Chest Chest palpation & inspection: normal inspection of the chest Resp Effort & Inspection: normal respiratory effort Auscultation: clear to auscultation bilaterally Cardio Rate: regular rate Rhythm: regular rhythm Heart sounds: S1 normal heart sound present and S2 normal heart sound present GI Palpation (GI): Soft to palpation and nontender Auscultation: normal bowel sounds Skin General skin exam: rashes and/or lesions noted Neuro Cranial nerves: Yes Normal hearing present Assessment & Plan Assessment & Plan (1) Allergy: Code(s): T78.40XA - Allergy, unspecified, initial encounter Category: Medical Qualifiers: Encounter type: initial encounter Qualified Code(s): T78.40XA - Allergy, unspecified, initial encounter (2) Asthma: Code(s): J45.909 - Unspecified asthma, uncomplicated Category: Medical Qualifiers: Asthma complication type: uncomplicated Asthma persistence: persistent Asthma severity: moderate Qualified Code(s): J45.40 - Moderate persistent asthma, uncomplicated (3) Cardiomegaly: Code(s): I51.7 - Cardiomegaly Category: Medical Plan continue Wixella continue Singulair continue antihistamine therapy short-acting beta agonist as needed CXR next visit start melatonin for sleep saline gel to nose follow-up in 12 months Medications: New melatonin 5 mg PO BEDTIME PRN 30 tabs 6RF sleep Coding Level of Care Code Est Pt Level 4 (85487) Diagnoses Allergy, initial encounter T78.40XA Encounter type: initial encounter Moderate persistent asthma without complication J45.40 Asthma complication type: uncomplicated Asthma persistence: persistent Asthma severity: moderate Cardiomegaly I51.7 Time Spent (min) 16
[2025-06-18 09:29] VITALS: BP 132/74; PULSE 82; O2SAT 98; BMI 30.8
== END 2025-06-18 09:48 | disposition home or self-care (01) ==
LOC: HO.HPS 09:28
PROVIDERS: PCP Internal Medicine; Visit Provider Hospitalist
DX: T78.40XA Allergy, unspecified, initial encounter (principal); J45.40 Moderate persistent asthma, uncomplicated; I51.7 Cardiomegaly
CPT/HCPCS: 99214

== ENCOUNTER → 2025-06-18 09:27 | Outpatient (BNVA) | payer MEDICARE, SELFPAY | PROVIDERS: PCP Internal Medicine; Visit Provider Hospitalist | DX: J45.40 Moderate persistent asthma, uncomplicated (principal); I51.7 Cardiomegaly; T78.40XA Allergy, unspecified, initial encounter | CPT/HCPCS: 99212 ==

== ENCOUNTER 2025-06-24 09:32 | Outpatient (AMB) | payer MEDICARE, SELFPAY ==
--- NOTE | 2025-06-24 09:40 | A.OFFPC_ITS ---
Vital Signs 06/24/25 09:55 06/24/25 10:23 Height 5 ft 2 in Weight 167 lb 2 oz BMI 30.6 BP 140/70 H 126/80 Blood Pressure Location Lt brachial Lt brachial Position Sitting Sitting Pulse 72 Pulse Source Pulse Oximeter Temp 97.1 F Temp Source Temporal Artery Scan Pulse Oximetry (%) 97 Oxygen Delivery Method Room Air Intake Visit Reasons: 3M follow up Allergies alendronate sodium Adverse Reaction (Intermediate, Verified 06/24/25 09:41) Upset stomach SEASONAL ALLERGIES Allergy (Intermediate, Uncoded 06/24/25 09:41) SNEEZING, runny nose Tobacco use date assessed: 04/08/25 Fall risk assessment: No Falls in past year Last assessed Fall Risk: 06/24/25 Dental Screening Dental Screen Date: 04/08/25 Did you have a dental visit in the last 12 months?: Yes Did you have a dental problem in the last 6 months where you did not have access to dental care?: No Was dental information given to patient?: Patient has dentist [facility] Medical History Diverticulosis Tubular adenoma Left knee pain Cardiomegaly Glaucoma Asthma Allergy Hypercholesterolemia Osteoporosis Vitamin D deficiency Anxiety GERD (gastroesophageal reflux disease) Insomnia Allergic rhinitis Surgical History History of colonoscopy with polypectomy (~04/11/24) Hx of colonoscopy History of shoulder surgery History of tubal ligation Family History Father Cancer Mother Diabetes Myocardial infarction Sister No problems noted. Daughter No problems noted. Son No problems noted. Son No problems noted. Son No problems noted. Social History Housing: House Are you a primary patient care representative to a significant other at home: No Do you presently have visiting nurse or other home services: No Alcohol intake: current Alcohol intake frequency: holidays/special occasions only Patient Tobacco Use Status: Never used Tobacco Tobacco use type: Cigarette e-Cigarette/Vaping Use: Never Used Second Hand Smoke Exposure: No Advance Directives Date on File: 10/11/21 service: No Current occupational status: retired Cognitive needs: No Hearing needs: No Vision needs: Yes Questionnaire PHQ-9 Over the last 2 weeks, how often have you been bothered by any of the following problems? 1. Little interest or pleasure in doing things: not at all 2. Feeling down, depressed, or hopeless: not at all 3. Trouble falling or staying asleep, or sleeping too much: several days 4. Feeling tired or having little energy: not at all 5. Poor appetite or overeating: not at all 6. Feeling bad about yourself - or that you are a failure or have let yourself or your family down: not at all 7. Trouble concentrating on things, such as reading the newspaper or watching television: not at all 8. Moving or speaking so slowly that other people could have noticed. Or the opposite - being so fidgety or restless that you have been moving around a lot more than usual: not at all 9. Thoughts that you would be better off or of hurting yourself in some way: not at all Total score: 1 Depression Screening Interpretation: Positive Depression Screening Done: Yes Source: Developed by Drs. Serafin Jason, Stacy Acosta, Maynor Blackmon and colleagues, with an educational tj from [employer]. Thrive Questionnaire Date Thrive assessed: 04/08/25 I am a: Patient What is your living situation today?: I have a steady place to live Within the past 12 months, did the food you bought not last and you didn't have the money to get more?: Never true Within the past 12 months, did you worry whether your food would run out before you got money to buy more?: Never true Do you have trouble paying for medicines?: No Do you have trouble getting transportation to medical appointments?: No Do you have trouble paying your heating and electricity bill?: No Do you have trouble taking care of your child, family member or friend?: No Do you have trouble with day-to-day activities such as bathing, preparing meals, shopping, managing finances, etc.?: No Are you currently unemployed and looking for a job?: I choose not to answer this question Are you interested in more education?: No Please select the resources that you would like help with: None Currently or been in a relationship where the following occur: No concerns reported THRIVE Score: 0 AUDIT C Alcohol Use Questionnaire (AUDIT-C) 1. How often do you have a drink containing alcohol?: Monthly or less 2. How many drinks containing alcohol do you have on a typical day when you are drinking?: 1 or 2 3. How often do you have six or more drinks on one occasion?: Never Total Score: 1 RACHNA-7 AMB Questionnaire RACHNA-7 Date RACHNA - 7 assessed: 04/08/25 Feeling nervous, anxious, or on edge: 0 = Not at all Not being able to stop or control worryin = Not at all Worrying too much about different things: 0 = Not at all Trouble relaxin = Not at all Being so restless that it is hard to sit still: 0 = Not at all Becoming easily annoyed or irritable: 0 = Not at all Feeling afraid as if something awful might happen: 0 = Not at all Total RACHNA-7 score (0-4 normal; 5-9 mild; 10-14 moderate; 15-21 severe): 0 Source: Developed by Drs. Serafin Jason, Stacy Acosta, Maynor Blackmon and colleagues, with an educational tj from [employer]. Physical exam (Primary Care) Vital Signs: Last Vital Signs Temp 97.1 F 06/24/25 09:55 Pulse 72 06/24/25 09:55 BP 126/80 06/24/25 10:23 Pulse Ox 97 06/24/25 09:55 Oxygen Delivery Method Room Air 06/24/25 09:55 BMI result Body Mass Index 30.6 Tobacco/Smoking Status: Tobacco use Status Tobacco use date assessed 04/08/25 06/24/25 09:41 Patient Tobacco Use Status Never used Tobacco 06/24/25 09:41 Tobacco use type Cigarette 06/24/25 09:41 e-Cigarette/Vaping Use Never Used 06/24/25 09:41 PHQ-9: PHQ-9 Score PHQ-9: Total score 1 06/24/25 10:19 Depression Screening Interpretation: Positive Thrive Assessment: Date of Thrive Assessment Date Thrive assessed 04/08/25 06/24/25 09:41 Currently or been in a relationship where the following occur: No concerns reported Const General: alert; No acute distress Eyes Conjunctivae: conjunctivae normal Resp Auscultation: clear to auscultation bilaterally Cardio Rate: regular rate Rhythm: regular rhythm GI Inspection: Yes normal to inspection Extrem General: Yes normal to inspection and No edema Office Procedures Flu Questionnaire Does the patient have a severe egg allergy?: No Does the patient have severe life threatening allergies?: No Does the patient have a fever or illness today?: No Has the patient ever had Guillain-Houston Syndrome?: No Has the patient ever had any past reaction to a flu shot?: No Immunizations Fluarix [id number] (PF) 45 mcg (15 mcg x 3)/0.5 mL IM syringe Performing Provider: Manuel Oviedo MD [place] [facility] Administered by: Marisa Guidry CMA on 06/24/25 10:33 Dose Route Admin Location Dispensed Lot Number Expiration Date NDC Edger Machine Setter 0.5 mL IM Left Deltoid 0.5 mL [id number] 03/02/26 [id number] [employer] VIS Given Date VIS Provided VIS Publication Date 06/24/25 Single Vaccine 24 Eligibility Eligibility Date Funding Source Not [facility] Eligible 06/24/25 Private Coding Level of Care Code Est Pt Level 4 (94784) Complex EM visit Add On G2211 Diagnoses Primary osteoarthritis, right shoulder M19.011 Hypercholesterolemia E78.00 Impaired fasting blood sugar R73.01 Gastroesophageal reflux disease without esophagitis K21.9 Esophagitis presence: without esophagitis Moderate persistent asthma without complication J45.40 Asthma severity: moderate Asthma persistence: persistent Asthma complication type: uncomplicated Generalized anxiety disorder F41.1 Vitamin B12 deficiency E53.8 Thrombocytopenia D69.6 Assessment & Plan Assessment & Plan (1) Primary osteoarthritis, right shoulder: Comment: 04/14/2025 [place] Code(s): M19.011 - Primary osteoarthritis, right shoulder Category: Medical Plan: Received notes in April for a pending right shoulder reverse arthroplasty. on PT (2) Hypercholesterolemia: Code(s): E78.00 - Pure hypercholesterolemia, unspecified Category: Medical Plan: Avoid fried foods, chicken skin, eggs, butter margarine, pastries and meat. Be it pork or beef they have a lot of cholesterol LDL goal of less than 130 and triglyceride of less than 150 on simvastatin 40 mg once a day last blood work was in November 2024 (3) Impaired fasting blood sugar: Code(s): R73.01 - Impaired fasting glucose Category: Medical Plan: Decrease the amount of carbohydrate intake, pasta, bread, rice and potatoes are all sugar and that is aside from all the sweet stuff, remember that fruits are good but they are Sweet also. (4) GERD (gastroesophageal reflux disease): Code(s): K21.9 - Gastro-esophageal reflux disease without esophagitis Category: Medical Qualifiers: Esophagitis presence: without esophagitis Qualified Code(s): K21.9 - Gastro-esophageal reflux disease without esophagitis Plan: Avoid the foods that causes that usually spicy foods, tomato products, juices, coffee, soda and foods that your sensitive to. After eating do not lie down, allow 3-4 hours before in lie down. And keep the head of bed above 30 degrees to avoid the acid from going up. (5) Asthma: Code(s): J45.909 - Unspecified asthma, uncomplicated Category: Medical Qualifiers: Asthma severity: moderate Asthma persistence: persistent Asthma comp lication type: uncomplicated Qualified Code(s): J45.40 - Moderate persistent asthma, uncomplicated Plan: Patient follows up with Pulmonary continuing with Wixela Singulair and albuterol (6) Generalized anxiety disorder: Code(s): F41.1 - Generalized anxiety disorder Category: Medical Plan: Continue with counseling (7) Vitamin B12 deficiency: Code(s): E53.8 - Deficiency of other specified B group vitamins Category: Medical (8) Thrombocytopenia: Code(s): D69.6 - Thrombocytopenia, unspecified Category: Medical Plan History of Present Illness The patient is a 80-year-old female presenting for a follow-up visit to manage multiple chronic conditions and to receive preventative care. The patient has a history of hypercholesterolemia, with the last cholesterol test in November 2024 showing an LDL of 115 mg/dL. She is currently on simvastatin 40 mg daily with a goal of maintaining LDL below 130 mg/dL and triglycerides below 150 mg/dL. The patient has been diagnosed with osteoporosis, with the last bone density test conducted in March 2024. She has been following up with [facility] for management. Asthma is managed with Wixela and Singulair, and she uses albuterol as needed. She reports good control of her symptoms and follows up with a glaucoma specialist. The patient has a history of obstructive sleep apnea and uses melatonin for sleep, which she reports as effective. She has a history of generalized anxiety disorder, which is being managed with counseling. The patient underwent reverse total shoulder arthroplasty on April 14 for right shoulder glenohumeral osteoarthritis. She is currently undergoing physical therapy twice a week and reports progress in regaining range of motion. Recent EKG in April showed bradycardia with sinus rhythm and left axis deviation, but no significant changes from previous results. Blood work from April 09 indicated thrombocytopenia with a platelet count of 9 6, while other parameters such as blood count, renal function, and electrolytes were normal. The patient also has low vitamin D and B12 levels, which are being monitored. Health Maintenance - General- Alert and oriented, no acute distress. - Chest- Palpable mass over sternum, likely xiphoid process, non-tender and firm. - Neurological- Stable gait with mild fatigue upon exertion, speech and swal lowing without issues, mild slurring when fatigued. - Cardiovascular- Heart rate below 60, metoprolol held. Social History - Exercise: Engages in dancing and maintains an active lifestyle. Review of Systems - Cardiovascular: Denies chest pain or palpitations. - Respiratory: Reports good control of asthma symptoms, denies dyspnea. - Musculoskeletal: Reports progress in physical therapy for shoulder, denies swelling. Physical Exam - Cardiovascular: Blood pressure measured at 126/80 mmHg - Respiratory: Regular breathing, no swelling noted Results - Labs: Blood work from April 09 showed thrombocytopenia with a platelet count of 96, normal blood count, renal function, and electrolytes. - Tests: EKG in April showed bradycardia with sinus rhythm and left axis deviation. Plan Patient was informed and verbally consented to the use of an ambient scribe for clinic note documentation during this visit. 1. Hypercholesterolemia The patient is on simvastatin 40 mg daily to manage hypercholesterolemia, with a target LDL of less than 130 mg/dL and triglycerides less than 150 mg/dL. Regular monitoring of lipid levels is recommended to ensure therapeutic goals are met. 2. Osteoporosis The patient is advised to continue follow-up with [facility] for osteoporosis management. Bone density monitoring is suggested to assess the progression of osteoporosis. 3. Asthma Asthma management includes the use of Wixela and Singulair, with albuterol as needed for symptom control. The patient should continue follow-up with the glaucoma specialist to monitor asthma control. 4. Obstructive Sleep Apnea The patient is advised to continue using melatonin for sleep management in obstructive sleep apnea. 5. Glenohumeral Osteoarthritis Post-operative care for reverse total shoulder arthroplasty includes physical therapy twice a week to regain range of motion. The patient should continue to follow up with the orthopedic surgeon for ongoing management. 6. Bradycardia The patient is advised to monitor heart rate and follow up with cardiology if symptoms persist or worsen. 7. Thrombocytopenia The patient is advised to follow up on thrombocytopenia with repeat blood work to monitor platelet levels. 8. Vitamin D Deficiency The patient is advised to monitor vitamin D levels and consider supplementation if necessary. 9. Vitamin B12 Deficiency The patient is advised to monitor vitamin B12 levels and consider supplementation if necessary. Discussion Notes During the visit, we discussed the management of hypercholesterolemia with simvastatin and the importance of regular lipid monitoring. We also reviewed the patient's osteoporosis management plan, emphasizing the need for continued follow-up with orthopedics. Asthma control was addressed, with a recommendation to maintain current medications and pulmonary follow-up. We discussed the patient's recent shoulder surgery and the importance of physical therapy for recovery. The patient was advised to monitor heart rate due to bradycardia and to follow up on thrombocytopenia with repeat blood work. We also discussed the need for vitamin D and B12 monitoring and potential supplementation. The patient received a flu shot as part of preventative care. Patient Instructions - Continue taking simvastatin 40 mg daily and monitor cholesterol levels reg ularly. - Follow up with [facility] for osteoporosis management. - Use Wixela and Singulair for asthma management, and albuterol as needed. - Continue physical therapy twice a week for shoulder recovery. - Monitor heart rate and follow up with cardiology if symptoms of bradycardia persist. - Follow up on thrombocytopenia with repeat blood work. - Monitor vitamin D and B12 levels and consider supplementation if necessary. - Maintain an active lifestyle and continue dancing. Orders: Orders Influenza [id number] Immunization Today Z23 - Encounter for immunization
[2025-06-24 09:55] VITALS: BP 140/70; PULSE 72; TEMP 36.2; O2SAT 97; BMI 30.6
[2025-06-24 10:23] VITALS: BP 126/80
== END 2025-06-24 10:41 | disposition home or self-care (01) ==
LOC: HO.HMCH 09:33
PROVIDERS: PCP Internal Medicine; Visit Provider Internal Medicine
DX: M19.011 Primary osteoarthritis, right shoulder (principal); E78.00 Pure hypercholesterolemia, unspecified; R73.01 Impaired fasting glucose; K21.9 Gastro-esophageal reflux disease without esophagitis; J45.40 Moderate persistent asthma, uncomplicated; F41.1 Generalized anxiety disorder; E53.8 Deficiency of other specified B group vitamins; D69.6 Thrombocytopenia, unspecified; Z23 Encounter for immunization

== ENCOUNTER → 2025-06-24 09:32 | Outpatient (BNVA) | payer MEDICARE, SELFPAY | PROVIDERS: PCP Internal Medicine; Visit Provider Internal Medicine | DX: M19.011 Primary osteoarthritis, right shoulder (principal); E78.00 Pure hypercholesterolemia, unspecified; R73.01 Impaired fasting glucose; K21.9 Gastro-esophageal reflux disease without esophagitis; J45.40 Moderate persistent asthma, uncomplicated; F41.1 Generalized anxiety disorder; E53.8 Deficiency of other specified B group vitamins; D69.6 Thrombocytopenia, unspecified; M81.0 Age-related osteoporosis without current pathological fracture; G47.33 Obstructive sleep apnea (adult) (pediatric); R00.1 Bradycardia, unspecified; E55.9 Vitamin D deficiency, unspecified; Z23 Encounter for immunization | CPT/HCPCS: 90471; 90656; 96127; 99212 ==